=== PATIENT | female | born 1945 | race Hispanic/Latino ===

== ENCOUNTER 2017-03-09 12:43 | Emergency (ER) | payer MEDICARE, BC ==
[2017-03-09 12:43] VITALS: BMI 20.1
[2017-03-09 13:04] VITALS: TEMP 98.5
--- NOTE | 2017-03-09 13:23 | ED PDOC ---
Arrival/HPI - General Chief Complaint: Psychiatric Evaluation Time Seen by Provider: 03/09/17 12:50 Historian: Patient - History of Present Illness Narrative History of Present Illness (Text): 03/09/17 13:20 A 71 year old female, whose past medical history includes bipolar disorder, presents to the emergency department complaining of increased anxiety. Patient reports she has been on and off her medication over the past 40 years. Patient states her symptoms worsen when her medication is not well managed. Patient denies any somatic complaints at this time. Patient denies any fever, chills, nausea, vomiting, abdominal pain, chest pain, shortness of breath, headache, dizziness, suicidal ideation, homicidal ideation or any other complaint. Past Medical History - Provider Review Nursing Documentation Reviewed: Yes - Infectious Disease Hx of Infectious Diseases: None - Tetanus Immunization Tetanus Immunization: Unknown - Cardiac Hx Hypertension: Yes - Musculoskeletal/Rheumatological Hx Arthritis: Yes (osteoporosis) - Psychiatric Hx Depression: No Hx Emotional Abuse: No Hx Physical Abuse: No Hx Substance Use: No - Surgical History Hx Orthopedic Surgery: Yes (left hip and right hip) - Suicidal Assessment Feels Threatened In Home Enviroment: No Family/Social History - Physician Review Nursing Documentation Reviewed: Yes Family/Social History: No Known Family HX Smoking Status: Never Smoked Hx Alcohol Use: No Hx Substance Use: No Hx Substance Use Treatment: No Allergies/Home Meds Allergies/Adverse Reactions: Allergies No Known Allergies Allergy (Verified 03/09/17 13:04) Home Medications: Home Meds Medication Instructions Recorded Confirmed Atorvastatin Calcium [Lipitor] 40 mg PO DAILY 12/31/13 03/09/17 Clonazepam 1 mg PO TID 12/31/13 03/09/17 Lamotrigine [Lamictal] 300 mg PO DAILY 12/31/13 03/09/17 Venlafaxine Hydrochloride [Effexor] 75 mg PO DAILY 12/31/13 03/09/17 Brexpiprazole [Rexulti] 1 mg PO DAILY 03/09/17 03/09/17 Chlorthalidone [Hygroton] 25 mg PO DAILY 03/09/17 03/09/17 Lamotrigine [Lamictal] 100 mg PO DAILY 03/09/17 03/09/17 Venlafaxine [Effexor XR] 150 mg PO DAILY 09/18/17 09/18/17 amLODIPine [Norvasc] 10 mg PO DAILY 03/09/17 03/09/17 Review of Systems - Physician Review All systems were reviewed & negative as marked: Yes - Review of Systems Constitutional: absent: Fevers, Night Sweats Respiratory: absent: SOB Cardiovascular: absent: Chest Pain Gastrointestinal: absent: Abdominal Pain, Nausea, Vomiting Neurological: absent: Headache, Dizziness Psychiatric: Anxiety. absent: Suicidal Ideation (/Homicidal ideation) Physical Exam Vital Signs Reviewed: Yes Vital Signs Temp Pulse Resp BP Pulse Ox 03/09/17 15:00 90 20 166/70 H 98 03/09/17 13:20 95 H 18 147/72 100 03/09/17 12:58 98.5 F 90 16 167/86 H 96 Temperature: Afebrile Blood Pressure: Hypertensive Pulse: Regular Respiratory Rate: Normal Appearance: Positive for: Non-Toxic, Comfortable, Other (Anxious appearing) Pain Distress: None Mental Status: Positive for: Alert and Oriented X 3 - Systems Exam Head: Present: Atraumatic, Normocephalic Pupils: Present: PERRL Extroacular Muscles: Present: EOMI Conjunctiva: Present: Normal Mouth: Present: Moist Mucous Membranes Pharnyx: No: ERYTHEMA, EXUDATE, TONSILS ENLARGED Neck: Present: Normal Range of Motion Respiratory/Chest: Present: Clear to Auscultation, Good Air Exchange. No: Respiratory Distress, Accessory Muscle Use Cardiovascular: Present: Regular Rate and Rhythm, Normal S1, S2. No: Murmurs Abdomen: Present: Normal Bowel Sounds. No: Tenderness, Distention, Peritoneal Signs Back: Present: Normal Inspection Upper Extremity: Present: Normal Inspection. No: Cyanosis, Edema Lower Extremity: Present: Normal Inspection. No: Edema Neurological: Present: GCS=15, CN II-XII Intact, Speech Normal Skin: Present: Warm, Dry, Normal Color. No: Rashes Psychiatric: Present: Alert, Oriented x 3, Normal Insight, Normal Concentration , Anxious Medical Decision Making ED Course and Treatment: 03/09/17 13:19 Impression: A 71 year old female with increased anxiety. Patient is not complaint with her medication. Plan: -- Chest xray -- EKG -- Labs -- Urinalysis -- Reassess and disposition Progress Notes: EKG shows NSR at [address] changes, no changes from prior on . Interpreted by me. Report Date : 03/09/2017 14:17:24 Procedure: Chest xray Dictator : Maria M Haddad MD IMPRESSION: No active pulmonary disease. 03/09/17 14:39 Labs reviewed, results grossly normal. Pending urinalysis. 03/09/17 16:07 Patient medically cleared. 03/09/17 16:08 Patient evaluated by crisis, who state patient does not meet criteria for admission. I have discussed the plan with the patient, who expresses understanding. Patient in agreement with plan to be discharged home. Patient is stable for discharge. Patient was instructed to follow up with physician or return if symptoms worsen or new concerning symptoms arise. - Lab Interpretations Lab Results: 03/09/17 13:40 03/09/17 13:40 Lab Results 03/09/17 14:45: Urine Opiates Screen Negative, Urine Methadone Screen Negative, Ur Barbiturates Screen Negative, Ur Phencyclidine Scrn Negative, Ur Amphetamines Screen Negative, U Benzodiazepines Scrn Negative, U Oth Cocaine Metabols Negative, U Cannabinoids Screen Negative 03/09/17 14:45: Urine Color Yellow, Urine Appearance Clear, Urine pH 6.5, Ur Specific Moran <= 1.005, Urine Protein Trace H, Urine Glucose (UA) Negative, Urine Ketones Negative, Urine Blood Negative, Urine Nitrate Negative, Urine Bilirubin Negative, Urine Urobilinogen 0.2, Ur Leukocyte Esterase Small H, Urine RBC 0 - 2, Urine WBC 0 - 2 03/09/17 13:40: Alcohol, Quantitative < 10 03/09/17 13:40: Sodium 139, Potassium 3.0 L, Chloride 96 L, Carbon Dioxide 29, Anion Gap 17, BUN 26 H, Creatinine 1.4, Est GFR ( Amer) 45, Est GFR (Non- Af Amer) 37, Random Glucose 138 H, Calcium 9.7, Total Bilirubin 0.6, AST 23, ALT 26, Alkaline Phosphatase 134 H, Total Protein 7.8, Albumin 4.6, Globulin 3.2 , Albumin/Globulin Ratio 1.4 03/09/17 13:40: WBC 8.8 D, RBC 4.36, Hgb 12.3, Hct 37.1, MCV 85.1, MCH 28.2, MCHC 33.2, RDW 14.6 H, Plt Count 346, MPV 9.4, Gran % 75.6 H, Lymph % (Auto) 19.5 L, [place] % (Auto) 4.8, Eos % (Auto) 0.1 L, Baso % (Auto) 0.0, Gran # 6.64 H , Lymph # 1.7, [place] # 0.4, Eos # 0.0, Baso # 0.00 I have reviewed the lab results: Yes - RAD Interpretation Radiology Orders: 03/09/17 13:19 CHEST PORTABLE [RAD] Stat - Medication Orders Current Medication Orders: Discontinued Medications Potassium Chloride (K-Dur 20 Meq Er Tab) 40 meq PO STAT STA Stop: 03/09/17 14:40 Last Admin: 03/09/17 14:44 Dose: 40 meq - Scribe Statement The provider has reviewed the documentation as recorded by the Chavaibnery Christopher Provider Scribe Attestation: All medical record entries made by the Scribe were at my direction and personally dictated by me. I have reviewed the chart and agree that the record accurately reflects my personal performance of the history, physical exam, medical decision making, and the department course for this patient. I have also personally directed, reviewed, and agree with the discharge instructions and disposition. Disposition/Present on Arrival - Present on Arrival Any Indicators Present on Arrival: No History of DVT/PE: No History of Uncontrolled Diabetes: No Urinary Catheter: No History of Decub. Ulcer: No History Surgical Site Infection Following: None - Disposition Have Diagnosis and Disposition been Completed?: Yes Diagnosis: Anxiety Disposition: HOME/ ROUTINE Disposition Time: 16:07 Patient Plan: Discharge Patient Problems: Current Active Problems Problem Status Onset Anxiety Acute Condition: GOOD Discharge Instructions (ExitCare): Anxiety (ED) Additional Instructions: Follow up as arranged by crisis. Return to ED if condition worsens. Referrals: Silas Coleman MD [Primary Care Provider] - Follow up with primary Forms: [employer] ([place])
[2017-03-09 13:53] LABS: EOS % 0.1 % (1.5-5.0); GRAN # 6.64 (1.4-6.5); GRAN % 75.6 % (50.0-68.0); HEMATOCRIT 37.1 % (36.0-48.0); LYMPH # 1.7 (1.2-3.4); LYMPH % 19.5 % (22.0-35.0); MEAN CELL VOLUME 85.1 fl (80.0-105.0); MEAN CORPUSCULAR HEMOGLOBIN 28.2 pg (25.0-35.0); MEAN CORPUSCULAR HGB CONC 33.2 g/dl (31.0-37.0); MEAN PLATELET VOLUME 9.4 fl (7.0-11.0); MONO # 0.4 (0.1-0.6); MONO % 4.8 % (1.0-6.0); RED CELL DISTRIBUTION WIDTH 14.6 % (11.5-14.5); WHITE BLOOD COUNT 8.8 10^3/ul (4.5-11.0)
[2017-03-09 13:58] LABS: ALB/GLOB RATIO 1.4 (1.1-1.8); BILIRUBIN,TOTAL 0.6 mg/dL (0.2-1.3); CALCIUM 9.7 mg/dL (8.4-10.5); TOTAL PROTEIN 7.8 g/dL (5.8-8.3)
--- NOTE | 2017-03-09 14:19 | RAD ---
HISTORY: psych COMPARISON: 12/09/2013 FINDINGS: LUNGS: The lungs are well inflated and clear. There are tiny calcified granulomas in the left upper lobe. PLEURA: No significant pleural effusion identified, no pneumothorax apparent. CARDIOVASCULAR: Normal. OSSEOUS STRUCTURES: No significant abnormalities. VISUALIZED UPPER ABDOMEN: Normal. OTHER FINDINGS: There is chronic elevation of the right hemidiaphragm. IMPRESSION: No active pulmonary disease.
[2017-03-09] MEDS ORDERED: Potassium Chloride 20 mEq ER Tab PO STA (14:39)
[2017-03-09 14:58] LABS: PH,URINE 6.5 (4.7-8.0); URINE BILIRUBIN NEGATIVE (NEGATIVE); URINE BLOOD NEGATIVE (NEGATIVE); URINE GLUCOSE (UA) NEGATIVE (NEGATIVE); URINE KETONE NEGATIVE (NEGATIVE); URINE LEUKOCYTE ESTERASE SMALL Leu/uL (NEGATIVE); URINE PROTEIN TRACE mg/dL (<30 mg/dL); URINE UROBILINOGEN 0.2 E.U./dL (<1 E.U./dL)
[2017-03-09 15:00] LABS: URINE APPEARANCE CLEAR (CLEAR); URINE COLOR YELLOW (YELLOW)
[2017-03-09 15:04] LABS: URINE RBC 0 - 2 /hpf (0-2); URINE WBC 0 - 2 /hpf (0-6)
[2017-03-09 15:34] VITALS: BP 166/70; PULSE 90; RESP 20; O2SAT 98
--- NOTE | 2017-03-09 20:49 | CARD ---
APPROVED REPORT EKG Measurement Heart [id number] <Conclusion> Normal sinus rhythm Possible Left atrial enlargement T wave abnormality, nonspecific Abnormal ECG
== END 2017-03-09 16:30 | disposition home or self-care (01) ==
LOC: ED 12:43
DX: F41.9 Anxiety disorder, unspecified (principal)
CPT/HCPCS: 71010; 80053; 81001; 85025; 90791; 93005; 99283; G0480

== ENCOUNTER 2017-04-17 08:07 | Inpatient (IN) | payer MEDICARE, BC ==
[2017-04-17 08:22] VITALS: BMI 30.1
--- NOTE | 2017-04-17 08:46 | ED PDOC ---
Arrival/HPI - General Chief Complaint: Trauma Time Seen by Provider: 04/17/17 08:13 Historian: Patient - History of Present Illness Narrative History of Present Illness (Text): 04/17/17 08:41 A 72 year old female whose past medical history includes bipolar disorder, presents to the emergency department for multiple falls. The patient states that she fell several times this week. She states that she slipped off of the bed because she sheets were to slippery and that she fell today because her walker got stuck. pt also reports she "doesn't feel herself" and "feels lightheadeed"The patient denies fevers, chills, headache, dizziness, chest pain , shortness of breath, dyspnea on exertion, cough, abdominal pain, nausea, vomiting, diarrhea, back pain, neck pain, urinary/bowel changes, trauma or injury to her head, complaint of pain, or any other complaint. Time/Duration: Other (This Morning) Symptom Onset: Sudden Symptom Course: Unchanged Activities at Onset: Rest, Light Context: Home Past Medical History - Provider Review Nursing Documentation Reviewed: Yes - Infectious Disease Hx of Infectious Diseases: None - Tetanus Immunization Tetanus Immunization: Unknown - Cardiac Hx Hypertension: Yes - Pulmonary Hx Respiratory Disorders: No - Neurological Hx Neurological Disorder: No HX Cerebrovascular Accident: No Hx Seizures: No - HEENT Hx HEENT Disorder: No - Renal Hx Renal Disorder: No - Endocrine/Metabolic Hx Endocrine Disorders: No - Hematological/Oncological Hx Blood Disorders: No Hx Cancer: No - Integumentary Hx Dermatological Disorder: No - Musculoskeletal/Rheumatological Hx Musculoskeletal Disorders: Yes Hx Arthritis: Yes (osteoporosis) Hx Osteoarthritis: Yes - Gastrointestinal Hx Gastrointestinal Disorders: No - Genitourinary/Gynecological Hx Genitourinary Disorders: No Hx Sexually Transmitted Diseases: No - Psychiatric Hx Psychophysiologic Disorder: No Hx Depression: No Hx Emotional Abuse: No Hx Physical Abuse: No Hx Substance Use: No - Surgical History Hx Orthopedic Surgery: Yes (left hip and right hip) - Anesthesia Hx Anesthesia: No - Suicidal Assessment Feels Threatened In Home Enviroment: No Family/Social History - Physician Review Nursing Documentation Reviewed: Yes Family/Social History: No Known Family HX Smoking Status: Former Smoker Hx Alcohol Use: No Hx Substance Use: No Hx Substance Use Treatment: No Allergies/Home Meds Allergies/Adverse Reactions: Allergies No Known Allergies Allergy (Verified 04/17/17 08:23) Home Medications: Home Meds Medication Instructions Recorded Confirmed Atorvastatin Calcium [Lipitor] 40 mg PO DAILY 12/31/13 04/17/17 Chlorthalidone [Hygroton] 25 mg PO DAILY 03/09/17 04/17/17 Lamotrigine [Lamictal] 150 mg PO BID 03/09/17 04/17/17 Venlafaxine [Effexor XR] 75 mg PO DAILY 03/09/17 04/17/17 amLODIPine [Norvasc] 10 mg PO DAILY 03/09/17 04/17/17 Clonazepam [Klonopin] 1.5 mg PO DAILY 04/17/17 04/17/17 Methylphenidate [Ritalin] 10 mg PO BID 04/17/17 04/17/17 buPROPion [Bupropion HCl] 300 mg PO DAILY 04/17/17 04/17/17 Review of Systems - Physician Review All systems were reviewed & negative as marked: Yes - Review of Systems Constitutional: absent: Fevers, Night Sweats ENT: absent: Sore Throat Respiratory: absent: SOB, Cough Cardiovascular: absent: Chest Pain, [place] Gastrointestinal: absent: Stool Changes, Diarrhea, Nausea, Vomiting Musculoskeletal: absent: Back Pain, Neck Pain Neurological: absent: Headache, Dizziness Physical Exam Vital Signs Reviewed: Yes Vital Signs Temp Pulse Resp BP Pulse Ox 04/17/17 13:03 84 19 129/62 97 04/17/17 11:20 84 18 133/65 95 04/17/17 08:21 98.8 F 88 18 141/85 98 Temperature: Afebrile Blood Pressure: Normal Pulse: Regular Respiratory Rate: Normal Appearance: Positive for: Well-Appearing, Non-Toxic, Comfortable Pain Distress: None Mental Status: Positive for: Alert and Oriented X 3 - Systems Exam Head: Present: Atraumatic, Normocephalic Pupils: Present: PERRL Extroacular Muscles: Present: EOMI Conjunctiva: Present: Normal Mouth: Present: Moist Mucous Membranes Neck: Present: Normal Range of Motion Respiratory/Chest: Present: Clear to Auscultation, Good Air Exchange. No: Respiratory Distress, Accessory Muscle Use Cardiovascular: Present: Regular Rate and Rhythm, Normal S1, S2. No: Murmurs Abdomen: Present: Normal Bowel Sounds. No: Tenderness, Distention, Peritoneal Signs Back: Present: Normal Inspection Upper Extremity: Present: Normal Inspection. No: Cyanosis, Edema Lower Extremity: Present: Normal Inspection. No: Edema Neurological: Present: GCS=15, CN II-XII Intact, Speech Normal Skin: Present: Warm, Dry, Normal Color. No: Rashes Psychiatric: Present: Alert, Oriented x 3, Normal Insight, Normal Concentration Medical Decision Making ED Course and Treatment: 04/17/17 08:47 Impression: A 72 year old female presents after multiple falls this week. The patient is not complaining of any pain, LOC, or head injury. also reports lightheadness- r/ o cardiac, infectious, metabolic abnormality. Plan: -- EKG -- Chest X-ray -- Pelvic X- Ray -- Urinalysis -- Labs -- Reassess and disposition Prior Visits: Notes and results from previous visits were reviewed. Patient was last seen in the emergency department on 12/31/13, the patient was seen in the emergency department for right eye discomfort. The patien was discharged home and advised to follow up with PMD. Progress Notes: EKG: Ordered, reviewed, and independently interpreted the EKG. Rate : 81 BPM Rhythm : NSR Interpretation : Non- Specific ST-T-wave changes. Comparison : No interval changes from previous. 04/17/17 11:04: Case discussed with Dr. Bah in detail. Accepts patient to her service. requests Head CT. Radiographs of the pelvis Dictator : Trevon Schwartz MD Report Date : 04/17/2017 10:50:23 IMPRESSION: No acute findings CHEST X-RAY Dictator : Maria M Gastelum MD Report Date : 04/17/2017 10:26:07 IMPRESSION: No acute findings. CT HEAD WITHOUT CONTRAST Dictator : Maria M Gastelum MD Report Date : 04/17/2017 12:41:47 IMPRESSION: No acute intracranial abnormality. Mild chronic microangiopathic changes and mild age-related global parenchymal volume loss. - Lab Interpretations Lab Results: 04/17/17 09:10 04/17/17 10:00 Lab Results 04/17/17 10:00: Sodium 139, Potassium 2.4 L*, Chloride 93 L, Carbon Dioxide 36 H , Anion Gap 12, BUN 20, Creatinine 1.7 H, Est GFR ( Amer) 36, Est GFR ( Non-Af Amer) 29, Random Glucose 137 H, Calcium 9.8, Magnesium 1.7, Total Bilirubin 0.9, AST 20, ALT 29, Alkaline Phosphatase 124, Lactate Dehydrogenase 413, Total Creatine Kinase 41, Troponin I 0.03, Total Protein 7.4, Albumin 4.4, Globulin 3.0, Albumin/Globulin Ratio 1.5 04/17/17 09:10: PT 11.6, INR 1.05, APTT 27.7 04/17/17 09:10: WBC 8.4, RBC 4.45, Hgb 12.4, Hct 37.7, MCV 84.7, MCH 27.9, MCHC 32.9, RDW 15.3 H, Plt Count 364, MPV 9.5, Gran % 78.5 H, Lymph % (Auto) 15.5 L, [place] % (Auto) 4.9, Eos % (Auto) 1.0 L, Baso % (Auto) 0.1, Gran # 6.59 H, Lymph # 1.3, [place] # 0.4, Eos # 0.1, Baso # 0.01 I have reviewed the lab results: Yes - RAD Interpretation Radiology Orders: 04/17/17 08:40 CHEST PORTABLE [RAD] Stat PELVIS ONE VIEW [RAD] Stat 04/17/17 10:56 HEAD W/O CONTRAST [CT] Stat - EKG Interpretation Interpreted by ED Physician: Yes Type: 12 lead EKG - Medication Orders Current Medication Orders: Potassium Chloride (Potassium Chloride 10 Meq/100 Ml) 10 meq in 100 mls @ 100 mls/hr IVPB Q2H NIKI Stop: 04/17/17 13:44 Last Admin: 04/17/17 11:26 Dose: 100 mls/hr eMAR Start Stop Document 04/17/17 11:26 MR (Rec: 04/17/17 11:43 MR [id number]) Intravenous Solution Start Date 04/17/17 Start Time 11:26 End Date 04/17/17 End time 12:30 Total Infusion Time 64 Discontinued Medications Potassium Chloride (K-Dur 20 Meq Er Tab) 40 meq PO STAT STA Stop: 04/17/17 10:39 Last Admin: 04/17/17 11:26 Dose: 40 meq - Scribe Statement The provider has reviewed the documentation as recorded by the Rebecca Alva Provider Scribe Attestation: All medical record entries made by the Chavaibe were at my direction and personally dictated by me. I have reviewed the chart and agree that the record accurately reflects my personal performance of the history, physical exam, medical decision making, and the department course for this patient. I have also personally directed, reviewed, and agree with the discharge instructions and disposition. Disposition/Present on Arrival - Present on Arrival Any Indicators Present on Arrival: No History of DVT/PE: No History of Uncontrolled Diabetes: No Urinary Catheter: No History of Decub. Ulcer: No History Surgical Site Infection Following: None - Disposition Have Diagnosis and Disposition been Completed?: Yes Diagnosis: Multiple falls, Hypokalemia Disposition: HOSPITALIZED Disposition Time: 01:00 Condition: STABLE
[2017-04-17 09:39] LABS: BASO # 0.01 K/mm3 (0.0-2.0); BASO % 0.1 % (0.0-3.0); EOS # 0.1 (0.0-0.7); GRAN # 6.59 (1.4-6.5); GRAN % 78.5 % (50.0-68.0); HEMATOCRIT 37.7 % (36.0-48.0); LYMPH # 1.3 (1.2-3.4); LYMPH % 15.5 % (22.0-35.0); MEAN CELL VOLUME 84.7 fl (80.0-105.0); MEAN CORPUSCULAR HEMOGLOBIN 27.9 pg (25.0-35.0); MEAN CORPUSCULAR HGB CONC 32.9 g/dl (31.0-37.0); MEAN PLATELET VOLUME 9.5 fl (7.0-11.0); MONO # 0.4 (0.1-0.6); MONO % 4.9 % (1.0-6.0); RED CELL DISTRIBUTION WIDTH 15.3 % (11.5-14.5); WHITE BLOOD COUNT 8.4 10^3/ul (4.5-11.0)
[2017-04-17 09:44] LABS: INR 1.05 (0.93-1.08); PARTIAL THROMBOPLASTIN TIME 27.7 Seconds (25.1-36.5)
--- NOTE | 2017-04-17 10:27 | RAD ---
HISTORY: Fall COMPARISON: 03/09/2017. FINDINGS: LUNGS: The lungs are well inflated and clear. PLEURA: No significant pleural effusion identified, no pneumothorax apparent. CARDIOVASCULAR: Normal. OSSEOUS STRUCTURES: No significant abnormalities. VISUALIZED UPPER ABDOMEN: Normal. OTHER FINDINGS: There is chronic elevation of the right hemidiaphragm. IMPRESSION: No acute findings.
[2017-04-17 10:35] LABS: ALB/GLOB RATIO 1.5 (1.1-1.8); BILIRUBIN,TOTAL 0.9 mg/dL (0.2-1.3); CALCIUM 9.8 mg/dL (8.4-10.5); MAGNESIUM 1.7 mg/dL (1.7-2.2); TOTAL PROTEIN 7.4 g/dL (5.8-8.3)
[2017-04-17 10:38] LABS: POTASSIUM 2.4 mmol/L (3.6-5.0)
[2017-04-17] MEDS ORDERED: Potassium Chloride 20 mEq ER Tab PO STA (10:38)
[2017-04-17 10:45] LABS: TROPONIN I 0.03 ng/mL
--- NOTE | 2017-04-17 10:51 | RAD ---
PROCEDURE: Radiographs of the pelvis. HISTORY: fall COMPARISON: None. FINDINGS: BONES: Pelvic Bones: Unremarkable. Hips: Bilateral hip prosthesis. No dislocation or loosening. JOINTS: Sacroiliac Joints: Unremarkable. Pubic Symphysis: Unremarkable. OTHER FINDINGS: Disc degeneration lower lumbar spine IMPRESSION: No acute findings
--- NOTE | 2017-04-17 12:43 | CT ---
PROCEDURE: CT HEAD WITHOUT CONTRAST. HISTORY: Fall COMPARISON: None available. TECHNIQUE: Axial computed tomography images were obtained through the head/brain without intravenous contrast. Radiation dose: Total exam DLP = 726.57 mGy-cm. This CT exam was performed using one or more of the following dose reduction techniques: Automated exposure control, adjustment of the mA and/or kV according to patient size, and/or use of iterative reconstruction technique. FINDINGS: HEMORRHAGE: No intracranial hemorrhage. BRAIN: There are mild chronic microangiopathic changes. There is no mass, mass effect or abnormal extra-axial fluid collection. VENTRICLES: There is mild age-related global parenchymal volume loss and proportionate enlargement of the ventricles and cortical sulci. CALVARIUM: There is no calvarial fracture or extracranial soft tissue swelling. PARANASAL SINUSES: Predominantly clear. MASTOID AIR CELLS: Predominantly clear. OTHER FINDINGS: None. IMPRESSION: No acute intracranial abnormality. Mild chronic microangiopathic changes and mild age-related global parenchymal volume loss.
[2017-04-17 21:29] LABS: PH,URINE 6.5 (4.7-8.0); URINE BILIRUBIN NEGATIVE (NEGATIVE); URINE BLOOD NEGATIVE (NEGATIVE); URINE GLUCOSE (UA) NEGATIVE (NEGATIVE); URINE KETONE NEGATIVE (NEGATIVE); URINE LEUKOCYTE ESTERASE NEGATIVE Leu/uL (NEGATIVE); URINE PROTEIN NEGATIVE mg/dL (<30 mg/dL); URINE UROBILINOGEN 0.2 E.U./dL (<1 E.U./dL)
[2017-04-17 21:34] LABS: URINE APPEARANCE CLEAR (CLEAR); URINE COLOR YELLOW (YELLOW)
[2017-04-17] MEDS ORDERED: Pneumococcal 23-Valent Vaccine IM ONE (22:44)
[2017-04-17] MEDS ORDERED: Influenza Vaccine 60 mcg/0.5 mL SYR (4YR UP) IM ONE (22:44)
--- NOTE | 2017-04-18 01:32 | HP ---
CHIEF COMPLAINT: Trauma, multiple falls. HISTORY OF PRESENT ILLNESS: The patient is a 72-year-old female with past medical history of bipolar disorder, came to the emergency department for multiple falls. The patient states that she fell several times this week. She states that she slipped off the bed because the sheets were slippery and then she fell today because her walker got stuck. The patient also reports she does not feel how she was and feels lightheadedness. The patient denies fever, chills, headache, dizziness, chest pain, dyspnea on exertion, cough, abdominal pain. No nausea, vomiting or diarrhea. No urinary problems. PAST MEDICAL HISTORY: Bipolar, hypertension, osteoporosis, osteoarthritis, left hip and right hip surgery. FAMILY HISTORY: Father and mother noncontributory. HABITS: Former smoker. No drugs. No ethanol. ALLERGIES: THE PATIENT IS NOT ALLERGIC WITH ANY MEDICATION. HOME MEDICATIONS: Lipitor, chlorthalidone, Lamictal, Effexor, Norvasc, Klonopin, Ritalin and bupropion. REVIEW OF SYSTEMS: The patient was seen and examined on the bedside in telemetry, looking comfortable. No shortness of breath. No coughing. No chest pain. No diarrhea. No nausea or vomiting. No back pain. No neck pain. No headache. No dizziness. Feeling fatigue and tired. PHYSICAL EXAMINATION VITAL SIGNS: Temperature 98.8, pulse 88, respiratory rate 18, blood pressure 140/85 and pulse oximetry 98. HEENT: Head; normocephalic and atraumatic. Eyes; PERRLA. Extraocular muscles intact. Conjunctivae clear. Nose patent. Mucous membrane moist. NECK: Supple. No carotid bruits, JVD or thyromegaly. CHEST: Bilaterally symmetrical. HEART: S1 and S2 positive. LUNGS: Clear to auscultation. ABDOMEN: Soft. Bowel sounds positive. No organomegaly. EXTREMITIES: No edema. No cyanosis. NEUROLOGIC: The patient is awake and alert. Moving all 4 extremities. No focal deficits. LABORATORY DATA: White blood cell 8.4, hemoglobin 12.4, hematocrit 37.7 and platelets 364. Sodium 134, potassium 2.4, BUN 20, creatinine 1.7 and glucose 137. ASSESSMENT AND PLAN: The patient is a 72-year-old lady with hypokalemia, replaced; hypochloremia; renal insufficiency; uncontrolled diabetes mellitus; history of bipolar; feeling fatigue and tired; history of hypertension; history of osteoporosis; osteoarthritis. Did CAT scan of the head according to Dr. Catie Dong; no acute intracranial abnormality, mild chronic microangiopathic changes and mild age-related global parenchymal volume loss. X-ray of the pelvis done. According to Dr. Trevon Dia; no acute finding. Chest x-ray is also done; no acute finding. Readmitted the patient. The patient's psychiatrist is Dr. Jayden Noe. Dr. Noe consult call. Restarted home medications. Replaced potassium. We will repeat labs. We will call consult for the Neurology and Cardiology and physical therapy. We will follow up. Irma Castanon MD
--- NOTE | 2017-04-18 03:11 | CON ---
PSYCHIATRIC CONSULTATION DATE: HISTORY OF PRESENT ILLNESS: The patient is a 72-year-old female who was brought to the emergency room after having fallen multiple times at home. In the emergency room, she was found to be hypokalemic, azotemic, and was admitted to the medical surgical floor for evaluation, I had known this lady since mid 02/2017, when she came to my office for psychiatric evaluation and treatment. Currently, I last saw her on 04/02/2017, for trying multiple psychotropic medicine. The patient has a past history and current history of bipolar disorder and mild cognitive impairment. She had a psychiatric hospitalization in 2011, two weeks at [facility]. She has been under the care of various psychiatrists off and on over the years and this is on other communities. The patient also had a right hip replacement on 01/08/2017, at [facility]. The patient also had a left hip replacement in 2012, has a history of hyperlipidemia, hypertension, chronic kidney disease. CURRENT MEDICATIONS: Most recent medications at home include Effexor XR 75 mg q.a.m., Wellbutrin 300 mg q.a.m., Ritalin 10 mg in a.m. and afternoon, clonazepam 1.5 mg at h.s., Lamictal 150 mg in a.m. and h.s. She has also been treated at home with Norvasc, Lipitor, chlorthalidone, and potassium. She admits not taking potassium regularly. LABORATORY DATA: The patient's current laboratory data; her white count is 8400, hemoglobin 12.4, platelet count 364,000. Her metabolic profile; sodium 139, potassium 2.4, chloride 93, CO2 36, BUN 20, creatinine 1.7, an estimated GFR of 29, random glucose 137. Rest of profile are all within normal range. She had a CT scan of the head, which showed microvascular disease and generalized age-related cerebral volume loss with ventricular dilatation. PERSONAL HISTORY: The patient lives in a family home. She is a . She has a daughter and she has a grandson. The patient has no history of alcohol or substance abuse. REVIEW OF SYSTEMS: Claims that itchiness in her body and legs at approximately 9 p.m. every night, worried it is from medications. We assured her that no medicine causes exactly itchiness at 9 p.m. The patient has been somewhat short of breath. Balance has been off recently. Rest of the 12-point review of systems are noncontributory. PHYSICAL EXAMINATION VITAL SIGNS: Blood pressure 129/62, pulse 84, afebrile, respirations 19 per minute, and O2 saturation 97%. PSYCHIATRICALLY: Her mental status, she is awake, she is alert. Her affect is somewhat flat and constricted. She is extremely anxious. She is preoccupied by her health. Recent memory is moderately impaired at times. She had a Baudilio cognitive tests 2 weeks ago, score of 24 out of 30. She claims her memory has been bad on and off few years. The patient's mood is depressed. No suicidal intent. IMPRESSION: The patient has a history of bipolar disorder, mixed type. She has a history of nzps-br-wbiigqeg cognitive impairment. She has xribn-bi-qmmdckt kidney disease. She has hypokalemia. The patient also has a history of hypertension and hyperlipidemia. PLAN: I will order appropriate psychotropic medication and we will follow up as per your request. The patient could be discharged from my point of view once her medical situation stabilize. Jayden Noe MD
[2017-04-18 06:49] LABS: CALCIUM 9.7 mg/dL (8.4-10.5)
[2017-04-18 06:56] LABS: POTASSIUM 2.6 mmol/L (3.6-5.0)
[2017-04-18 07:07] LABS: HEMATOCRIT 37.9 % (36.0-48.0); MEAN CELL VOLUME 85.4 fl (80.0-105.0); MEAN CORPUSCULAR HGB CONC 31.7 g/dl (31.0-37.0); RED CELL DISTRIBUTION WIDTH 15.6 % (11.5-14.5); WHITE BLOOD COUNT 6.2 10^3/ul (4.5-11.0)
[2017-04-18 07:19] LABS: IRON 35 ug/dL (45-180)
[2017-04-18] MEDS ORDERED: Potassium Chloride 40 mEq/30 ml LIQ UD PO ONE (08:40)
[2017-04-18] MEDS ORDERED: Magnesium Citrate Oral SOL (300 ml) PO ONE (08:59)
--- NOTE | 2017-04-18 09:01 | CARD ---
APPROVED REPORT EKG Measurement Heart [id number] ID [id number] <Conclusion> Normal sinus rhythm ST & T wave abnormality, consider inferior ischemia Prolonged QT Wandering baseline
[2017-04-18] MEDS: Venlafaxine 75 mg ER Cap PO SCH (09:23)
[2017-04-19 06:30] LABS: HEMATOCRIT 35.4 % (36.0-48.0); MEAN CELL VOLUME 85.1 fl (80.0-105.0); MEAN CORPUSCULAR HEMOGLOBIN 27.2 pg (25.0-35.0); MEAN CORPUSCULAR HGB CONC 31.9 g/dl (31.0-37.0); RED CELL DISTRIBUTION WIDTH 15.6 % (11.5-14.5)
[2017-04-19 06:38] LABS: ALB/GLOB RATIO 1.3 (1.1-1.8); BILIRUBIN,TOTAL 0.6 mg/dL (0.2-1.3); CALCIUM 9.5 mg/dL (8.4-10.5); TOTAL PROTEIN 6.5 g/dL (5.8-8.3)
[2017-04-19 06:40] LABS: POTASSIUM 2.6 mmol/L (3.6-5.0)
[2017-04-19] MEDS: Iron Complex Polysacch 150mg Cap PO SCH (09:41)
[2017-04-19] MEDS: Venlafaxine 75 mg ER Cap PO SCH (09:41)
[2017-04-19 13:41] LABS: FOLATE 9.7 ng/mL
[2017-04-19] MEDS: Calamine-Zinc Oxide Lotion (120 ml) TOP PRN (22:50)
--- NOTE | 2017-04-20 09:27 | PN ---
DATE: 04/18/2017 SUBJECTIVE: The patient is a 72-year-old female. The patient was seen and examined at the bedside and looking comfortable. No nausea, vomiting, or diarrhea. No hematuria or hematochezia. No swelling of the legs. No chest pain or palpitations. No headache or dizziness. PHYSICAL EXAMINATION: VITAL SIGNS: Temperature 99.5, pulse 78, blood pressure 120/74, and respiratory rate 20. HEENT: Head is normocephalic and atraumatic. Eyes; PERRLA. Extraocular muscles are intact. Conjunctivae clear. Nose patent. Mucous membrane moist. NECK: Supple. No carotid bruit, JVD, or thyromegaly. CHEST: Bilaterally symmetrical. HEART: S1 and S2 positive. LUNGS: Clear to auscultation. ABDOMEN: Soft. Bowel sounds are present. No organomegaly. EXTREMITIES: No edema. No cyanosis. NEUROLOGIC: The patient is awake and alert. Moving all 4 extremities. No focal deficit.. MEDICATIONS: Effexor, chlorthalidone, Lamictal, Lipitor, Norvasc, and Wellbutrin. LABORATORY DATA: White blood cells 6.3, hemoglobin 12.0, hematocrit 37.9, and platelets 338. Sodium 139, potassium 2.6, BUN 19, creatinine 1.6, and glucose 112. Iron 35 ASSESSMENT AND PLAN: a 72-year-old female with hypokalemia replaced, hypochloremia, high creatinine improving, hyperglycemia, iron deficiency, hypercholesterolemia, seen by Dr. Noe, the patient's psychiatrist; history of multiple falls, history of bipolar, and mild cognitive impairment. She has psych hospitalization in 2011 at [facility], has right hip replacement, has left hip replacement also, history of hypertension, and chronic kidney disease. Dr. Noe ordered psychotropic medications, we gave potassium, but still it is not replaced yet. I put some consult with service superintendent and neurologist, waiting for the input, and fall precautions. The patient is deconditioned and need rehabilitation. Meanwhile, we continue present treatment. Gastrointestinal and deep venous thrombosis prophylaxis. We will followup. Irma Castanon MD [facility] # [id number] MTDDeangelo
--- NOTE | 2017-04-20 09:41 | CP.PCM.CON ---
History of Present Illness - History of Present Illness History of Present Illness: Neurology consult note for Dr. Baker's service - Maciel Virk PGY2 Reason for consult: frequent falls HPI: Patient is a 72yo female with past medical history of bipolar disorder, hyperlipidemia, hypertension, chronic kidney disease, prior psychiatric hospitalizations that presented [facility] with complaints of multiple falls. Patient reportedly fell off her bed as well as sustained multiple falls at home throughout the week. She reported feeling lightheaded and unwell. She denied chest pain, palpitations, SOB, abdominal pain, nausea, vomiting, fever, chills, cough. Neurology consulted for evaluation of frequent falls. 12point ROS as per HPI above otherwise negative PMH: as stated above PSH: left hip replacement (2013), right hip replacement (2017) Allergies: NKDA Social Hx: Denies alcohol and illicit drug use; Has a daughter and grandson Family Hx: non-contributory Past Patient History - Infectious Disease Hx of Infectious Diseases: None - Tetanus Immunizations Tetanus Immunization: Unknown - Past Social History Smoking Status: Former Smoker - CARDIAC Hx Cardiac Disorders: Yes Hx Hypercholesterolemia: Yes Hx Hypertension: Yes - PULMONARY Hx Respiratory Disorders: Yes (USED TO SMOKE CIGARETTES < PPD) - NEUROLOGICAL Hx Neurological Disorder: Yes HX Cerebrovascular Accident: No Hx Dizziness: Yes Hx Seizures: No - HEENT Hx HEENT Problems: No - RENAL Hx Chronic Kidney Disease: Yes (3) - ENDOCRINE/METABOLIC Hx Endocrine Disorders: No - HEMATOLOGICAL/ONCOLOGICAL Hx Blood Disorders: No Hx Cancer: No - INTEGUMENTARY Hx Dermatological Problems: No - MUSCULOSKELETAL/RHEUMATOLOGICAL Hx Musculoskeletal Disorders: Yes Hx Arthritis: Yes (osteoporosis) Hx Falls: Yes Hx Osteoarthritis: Yes - GASTROINTESTINAL Hx Gastrointestinal Disorders: No - GENITOURINARY/GYNECOLOGICAL Hx Genitourinary Disorders: No Hx Sexually Transmitted Disorders: No - PSYCHIATRIC Hx Psychophysiologic Disorder: Yes (SMOKED CIGARETTES) Hx Anxiety: Yes Hx Bipolar Disorder: Yes Hx Depression: Yes Hx Emotional Abuse: No Hx Physical Abuse: No Hx Substance Use: No - SURGICAL HISTORY Hx Surgeries: Yes Hx Orthopedic Surgery: Yes (left hip and right hip) - ANESTHESIA Hx Anesthesia: No Meds Allergies/Adverse Reactions: Allergies Allergy/AdvReac Type Severity Reaction Status Date / Time No Known Allergies Allergy Verified 04/17/17 21:25 - Medications Medications: Current Medications Amlodipine Besylate (Norvasc) 10 mg PO DAILY NIKI Last Admin: 04/19/17 09:40 Dose: 10 mg Atorvastatin Calcium (Lipitor) 40 mg PO DAILY [facility] Last Admin: 04/19/17 09:41 Dose: 40 mg Bupropion HCl (Wellbutrin) 300 mg PO DAILY [facility] Last Admin: 04/19/17 09:36 Dose: 300 mg Calamine (Calamine Lotion) 0 ml TOP Q6 PRN PRN Reason: Itching / Pruritus Last Admin: 04/19/17 22:50 Dose: 120 ml Chlorthalidone (Hygroton) 25 mg PO DAILY [facility] Last Admin: 04/19/17 09:42 Dose: 25 mg Clonazepam (Klonopin) 1.5 mg PO HS [facility] PRN Reason: Protocol Last Admin: 04/19/17 22:49 Dose: 1.5 mg Lamotrigine (Lamictal) 150 mg PO BID [facility] Last Admin: 04/19/17 19:18 Dose: 150 mg Polysaccharide Iron Complex (Ferrex-150) 150 mg PO DAILY [facility] Last Admin: 04/19/17 09:41 Dose: 150 mg Venlafaxine HCl (Effexor Xr) 75 mg PO DAILY [facility] Last Admin: 04/19/17 09:41 Dose: 75 mg Physical Exam - Constitutional Appears: No Acute Distress - Head Exam Head Exam: ATRAUMATIC, NORMAL INSPECTION, NORMOCEPHALIC - Eye Exam Eye Exam: EOMI Pupil Exam: PERRL - ENT Exam ENT Exam: Normal Exam - Neck Exam Neck exam: Positive for: Normal Inspection. Negative for: Lymphadenopathy, Tenderness, Thyromegaly - Respiratory Exam Respiratory Exam: Clear to Auscultation Bilateral. absent: Rales, Rhonchi, Wheezes - Cardiovascular Exam Cardiovascular Exam: RRR, +S1, +S2. absent: Gallop, Rubs - GI/Abdominal Exam GI & Abdominal Exam: Soft. absent: Distended, Firm, Guarding, Tenderness - Neurological Exam Neurological exam: Alert, CN II-XII Intact, Oriented x3 Additional comments: EOMI PERRL CN2-12 grossly intact motor function grossly intact sensory intact throughout - Psychiatric Exam Psychiatric exam: Normal Affect, Normal Mood - Skin Skin Exam: Dry, Intact, Normal Color, Warm Results - Vital Signs Recent Vital Signs: Last Vital Signs Temp 98.7 F 04/20/17 06:00 Pulse 63 04/20/17 06:00 Resp 18 04/20/17 06:00 BP 121/69 04/20/17 06:00 Pulse Ox 93 L 04/20/17 06:00 - Labs Result Diagrams: 04/20/17 10:30 04/20/17 10:30 Labs: Laboratory Results - last 24 hr 04/18/17 04/18/17 06:00 06:00 Hemoglobin A1c 6.3 Vitamin B12 427 Folate 9.7 Assessment & Plan - Assessment and Plan (Free Text) Plan: 72yo female with history of bipolar disorder, hyperlipidemia, hypertension, chronic kidney disease, prior psychiatric hospitalizations presented to the [facility] with complaints of multiple falls. Neurology consulted for evaluation of frequent falls. 1. Dizziness 2. Bipolar disorder 3. Hyperlipidemia 4. Hypertension 5. Chronic kidney disease -CT Head reviewed; revealed no acute intracranial abnormalities -CXR reviewed; no acute findings -EKG reviewed; normal sinus rhythm at 81bpm with prolonged QT, ST/T wave abnormality -Recommend obtaining orthostatic VS -Recommend f/u psychiatry recommendations regarding current psychiatric medications -Physical therapy evaluation/treatment -Patient would benefit from subacute rehabilitation for improvement of physical deconditioning -Monitor and correct electrolytes abnormalities as indicated -Further recommendations as per attending, Dr. Baker Patient seen and case discussed/reviewed with attending, Dr. Baker
--- NOTE | 2017-04-20 09:49 | PQF RENAL ---
This form is a permanent part of the medical record Dr. Castanon, Patient admitted with creatinine 1.7. Your documentation notes renal insufficiency with hx CKD. This diagnosis requires more specificity. Please document stage of CKD. Clarification of your documentation is requested to better reflect the severity of illness and intensity of treatment of your patient. Indicators present ASK DR JUNAID LION? [] Oliguria/anuria [] Edema/weight gain [] Hyponatremia [] Confusion/mental status changes [] Increased Blood Urea Nitrogen/Creatinine [] Increased Potassium/Decreased potassium [] Anemia (male <13.5, female <12.0) [] Proteinuria [] Metabolic Acidosis OR Alkalosis [] Hypotension/shock [] Decreased GFR [] Other: [] Location in the medical record that reflects the above clinical findings: PHYSICIAN'S RESPONSE Based on your medical judgment of the clinical indicators outlined above, are you treating this patient for a known or suspected: [] Acute Renal Failure [] Acute Kidney Injury [] Azotemia/prerenal azotemia [] Chronic kidney disease Stage I [] Stage II [] Stage III [] Stage IV [] [] Other condition/diagnosis:[] [] If Unable to Determine, please check the box, sign and date. Present On Admission (POA) Indicator: [] Present at the time of admission [] Not present at the time of admission [] Clinically Undetermined In responding to this query, please exercise your independent professional judgment. The fact that a question is asked does not imply that any particular answer is desired or expected. Thank you for your clarification on this documentation. If you have any questions please call:[ ] * Thank you, [ ]Scot Justin [facility] #[id number] respiratory therapist assistant Chronic Kidney Disease Stages *[employer]* Stage I GFR >90 Stage II GFR 60-89 Stage III GFR 30-59 Stage IV GFR 15-29 Stage V~~~~~~~~~~ GFR <15~~~~~~~~~~~~~ MTDD
[2017-04-20] MEDS: Calamine-Zinc Oxide Lotion (120 ml) TOP PRN (10:28)
[2017-04-20] MEDS: Iron Complex Polysacch 150mg Cap PO SCH (10:30)
[2017-04-20] MEDS: Venlafaxine 75 mg ER Cap PO SCH (10:44)
[2017-04-20 10:56] LABS: HEMATOCRIT 38.4 % (36.0-48.0); MEAN CELL VOLUME 85.3 fl (80.0-105.0); MEAN CORPUSCULAR HEMOGLOBIN 27.1 pg (25.0-35.0); MEAN CORPUSCULAR HGB CONC 31.8 g/dl (31.0-37.0); MEAN PLATELET VOLUME 8.9 fl (7.0-11.0); RED CELL DISTRIBUTION WIDTH 15.5 % (11.5-14.5); WHITE BLOOD COUNT 7.2 10^3/ul (4.5-11.0)
[2017-04-20 11:13] LABS: ALB/GLOB RATIO 1.5 (1.1-1.8); BILIRUBIN,TOTAL 0.6 mg/dL (0.2-1.3); CALCIUM 10.2 mg/dL (8.4-10.5); MAGNESIUM 1.9 mg/dL (1.7-2.2); PHOSPHOROUS 3.1 mg/dL (2.5-4.5); POTASSIUM 3.2 mmol/L (3.6-5.0); TOTAL PROTEIN 7.2 g/dL (5.8-8.3)
[2017-04-20] MEDS ORDERED: Potassium Chloride 20 mEq ER Tab PO ONE (11:58)
[2017-04-20 12:44] VITALS: BP 131/76; PULSE 97; RESP 20; TEMP 98.6
[2017-04-20 14:43] VITALS: O2SAT 96
--- NOTE | 2017-04-20 16:06 | CARD ---
APPROVED REPORT EXAM: Two-dimensional and M-mode echocardiogram with Doppler and color Doppler. INDICATION HTN/LVFX/SOB 2D DIMENSIONS IVSd0.8 (0.7-1.1cm)LVDd3.9 (3.9-5.9cm) PWd1.0 (0.7-1.1cm)LVDs2.5 (2.5-4.0cm) FS (%) 35.3 %LVEF (%)65.3 (>50%) M-Mode DIMENSIONS Aortic Root3.50 (2.2-3.7cm)Aortic Cusp Exc.1.40 (1.5-2.0cm) Aortic Valve AoV Peak Jzoaqujh828.0cm/sAoV VTI25.4cmAO Peak GR.9mmHg LVOT Peak Koluqohb094.0cm/sLVOT VTI20.20cmAO Mean GR.5mmHg Mitral Valve MV E Sxsdglhk33.9cm/sMV A Ifzbyodz990.0cm/sE/A ratio0.9 TDI Lateral E' Peak V12.10cm/sMedial E' Peak V6.53cm/sE/Lateral E'7.6 E/Medial E'14.1 Pulmonary Valve PV Peak Bmkvunls708.0cm/sPV Peak Grad.6mmHg Tricuspid Valve TR Peak Ppvespfz451tl/sRAP RUGMRYIX84pyXcFU Peak Gr.24mmHg AVCE75mgWr LEFT VENTRICLE The left ventricle is normal size. There is normal left ventricular wall thickness. The left ventricular function is normal.EF-65% There is normal LV segmental wall motion. Transmitral Doppler flow pattern is Grade III-reversible restrictive diastolic dysfunction. No left ventricle thrombus noted on this study. There is no ventricular septal defect visualized. There is no left ventricular aneurysm. There is no mass noted in the left ventricle. RIGHT VENTRICLE The right ventricle is normal size. There is normal right ventricular wall thickness. The right ventricular systolic function is normal. ATRIA The left atrium size is normal. The right atrium size is normal. The interatrial septum is intact with no evidence for an atrial septal defect. AORTIC VALVE The aortic valve is thickened but opens well. The aortic valve is mildly to moderately sclerotic. There is mild aortic regurgitation. There is no aortic valvular stenosis. There is no aortic valvular vegetation. MITRAL VALVE The mitral valve is thickened but opens well. Mitral regurgitation is trace. There is no mitral valve stenosis. There is no evidence of mitral valve prolapse. TRICUSPID VALVE The tricuspid valve leaflets are thickened , but open well. There is trace tricuspid regurgitation.RVSP-34 mmof hg. There is no tricuspid valve stenosis. There is no tricuspid valve prolapse or vegetation. PULMONIC VALVE The pulmonic valve is borderline thickened. There is trace pulmonic valvular regurgitation. There is no pulmonic valvular stenosis. GREAT VESSELS The aortic root is normal in size. The ascending aorta is normal in size. The pulmonary artery is normal. The IVC is normal in size and collapses >50% with inspiration. PERICARDIAL EFFUSION There is no pleural effusion. There is no pericardial effusion. <Conclusion> Normal chamber Size. EF-60-65%. Trace MR/TR RVSP-34 mmof hg. Mild AR.
--- NOTE | 2017-04-21 01:53 | CON ---
DATE: 04/20/2017 REASON FOR CONSULTATION: Followup uncontrolled hypertension and multiple falls. BRIEF CLINICAL HISTORY: A 72-year-old female with past medical history significant for bipolar disorder, who came to the emergency department with multiple falls, feeling very weak, and lethargic. Potassium was found to be very low, but most of the falls are mechanical. Admitting potassium was 2.4. The patient denies any chest pain, shortness of breath, or any palpitation. PAST MEDICAL HISTORY: Significant for bipolar disorder, hypertension, osteoporosis, osteoarthritis of left hip and right hip. PAST SURGICAL HISTORY: Significant for bilateral hip surgery. FAMILY HISTORY: Noncontributory. SOCIAL HISTORY: Denies any smoking and denies any history of alcohol abuse. CURRENT MEDICATIONS: The patient is on Lipitor, chlorthalidone, Lamictal, Effexor, Norvasc, Klonopin, Ritalin, and bupropion. ALLERGIES: NO KNOWN DRUG ALLERGIES. REVIEW OF SYSTEMS: As per HPI. PHYSICAL EXAMINATION: VITAL SIGNS: Temperature afebrile, heart rate 80, and blood pressure . HEENT: PERRLA. Extraocular muscles intact. NECK: Supple. No carotid bruits or thyromegaly. CHEST: Clear to auscultation. HEART: S1 and S2 regular. ABDOMEN: Soft. EXTREMITIES: Clubbing and cyanosis negative. LABORATORY DATA: Blood workup as follows: WBC 7.8, hemoglobin 12.2, hematocrit 38.4, and platelet count of 376. Chemistry show sodium 140, potassium 3.2, chloride , CO2 34, anion gap of 13, BUN 16, and creatinine 1.5. IMPRESSION: Feeling weak, lethargic, hypokalemia possibly secondary to diuretic induced hypokalemia, frequent fall, bipolar disorder, hypertension, osteoporosis, osteoarthritis, and status post hip surgery. RECOMMENDATIONS: We will get echo to assess to LV function, supplement potassium, discontinue telemetry. We will follow with you. Thank you Dr. Castanon for providing us the opportunity in taking care of Gabbi Trujillo. Joy Titus MD
--- NOTE | 2017-04-21 09:11 | PN ---
DATE: 04/20/2017 SUBJECTIVE: The patient is 72-year-old female admitted to the hospital after having multiple falls at home. She was found to have multiple medical problems. She has a long history of bipolar disorder and some moderate cognitive impairments. MENTAL STATUS: The patient's current mental status; she is awake, she is alert, she was walking in the [place] with a physical therapist and a walker. The patient is mostly oriented. She is oriented to months, year, day, and place. She recognizes me. She finds it being slightly anxious. She denies suicidal ideation. The patient is concerned about her medications in an appropriate manner. MEDICATIONS: The patient's current medications include Effexor XR 75 mg daily, , clonazepam 1.5 mg at bedtime, Lamictal 150 mg twice a day, Lipitor 40 mg daily, Norvasc 10 mg daily, and Wellbutrin 300 mg q. a.m. PHYSICAL EXAMINATION: VITAL SIGNS: Current blood pressure is 135/75, pulse is 64, afebrile, respirations 18 per minute, O2 saturation 93% on room air. LABORATORY DATA: Her CBC is all within normal range. Her metabolic profile: Sodium 140, potassium 3.2, chloride 96, CO2 34, and anion gap 13, BUN 19, creatinine 1.5, estimated GFR 34, random glucose 128. Rest of profile within normal range. IMPRESSION: 1. History of bipolar disorder. 2. History of mild cognitive impairment. 3. The patient has recent dizziness and falls at home, mechanical in nature. 4. She has hyperlipidemia. 5. She has chronic kidney disease. 6. She has history of hypertension. PLAN: We will add Ritalin 10 mg p.o. q. a.m. and in afternoon, which she will start it along at home. I will continue to monitor her mental status. Jayden Noe MD
--- NOTE | 2017-04-22 08:41 | DS ---
CHIEF COMPLAINT: Trauma, multiple falls, abnormal labs. HISTORY OF PRESENT ILLNESS: Ms. Gabbi Trujillo is a 72-year-old female with past medical history of bipolar disorder, who came to the emergency department for multiple falls. The patient states that she fell several times this week. The patient states that she slipped off the bed because the sheets were slippery and then she fell today, the day of admission because her walker got stuck, but she had different reasons to fall. Overall, she was feeling very fatigued and tired, we admitted the patient. Did CAT scan of the head, pelvic x-rays, chest x-rays. Her pressure was very low. We will give everyday K-rider of multiple runs and now potassium improved. Called Neurology consult. According to neurologist, the patient need subacute rehab. The patient was seen by Dr. Noe, her psychiatrist. Now we transfer the patient to TCU for physical therapy and continuity of care. PAST MEDICAL HISTORY: Bipolar, hypertension, osteoporosis, osteoarthritis, left hip and right hip surgery. FAMILY HISTORY: Father and mother noncontributory. HABITS: Former smoker. No drugs. No ethanol. ALLERGIES: THE PATIENT IS NOT ALLERGIC TO ANY MEDICATIONS. HOME MEDICATIONS: Reviewed by me. REVIEW OF SYSTEMS: The patient seen and examined on the bedside today in the unit, looking comfortable. No nausea. No vomiting. No diarrhea. No hematuria. No hematochezia. No swelling of the legs. No chest pain. No palpitation. No headache. No dizziness. No fever. No chills. No shortness of breath. Just complaining of fatigue and tired. PHYSICAL EXAMINATION: VITAL SIGNS: Temperature 98.6, pulse 97, blood pressure 130/76, respiratory rate 20. HEENT: Head; normocephalic and atraumatic. Eyes; PERRLA. Extraocular muscles intact. Conjunctivae clear. Nose patent. Mucous membrane moist. NECK: Supple. No carotid bruits. No JVD. No thyromegaly. CHEST: Bilateral symmetrical. HEART: S1 and S2 positive. LUNGS: Clear to auscultation. ABDOMEN: Soft. Bowel sounds present. No organomegaly. EXTREMITIES: No edema. No cyanosis. NEUROLOGIC: The patient is awake and alert. Moving all 4 extremities. No focal deficits. MEDICATIONS: Aldactone, Benadryl, Calamine, Effexor, chlorthalidone, potassium on multiple runs, Klonopin, Lamictal, Lipitor, Norvasc, Ritalin, and Wellbutrin. LABORATORY DATA: White blood cell 7.3, hemoglobin 12.2, hematocrit 38.4, platelets 376. Sodium 140, potassium 3.2, BUN 16, creatinine 1.5, glucose 128. ASSESSMENT AND PLAN: Ms. Gabbi Trujillo is a 72-year-old lady with hypokalemia, hypochloremia, renal insufficiency, iron deficiency, hypercholesteremia, history of severe hypokalemia and got multiple runs of potassium. Did CAT scan of the head, pelvic x-rays, chest x-rays. Has multiple falls, history of bipolar disorder, hypertension, chronic kidney disease, prior psychiatric hospitalization, dizziness. CT of head shows no acute intracranial abnormalities. Chest x-ray shows no acute findings. EKG normal sinus rhythm. Orthostatic was done. Psychiatrist is on the case. We called Neurology consult and Physical Therapy recommended subacute rehab. We will discharge the patient to subacute rehab for continuity of care and physical therapy. Irma Castanon MD MTDD
== END 2017-04-20 16:13 | DRG 641 ==
LOC: ED 08:07 → ERH 12:45 → 2RSO 13:50
PROVIDERS: ADMIT Internal Medicine; ATTEND Internal Medicine
DX: E87.6 Hypokalemia (principal); F31.60 Bipolar disorder, current episode mixed, unspecified; I12.9 Hypertensive chronic kidney disease with stage 1 through stage 4 chronic kidney disease, or unspecified chronic kidney disease; E11.22 Type 2 diabetes mellitus with diabetic chronic kidney disease; N18.9 Chronic kidney disease, unspecified; E11.65 Type 2 diabetes mellitus with hyperglycemia; E78.5 Hyperlipidemia, unspecified; G31.84 Mild cognitive impairment of uncertain or unknown etiology; M81.0 Age-related osteoporosis without current pathological fracture; M16.0 Bilateral primary osteoarthritis of hip; Z96.643 Presence of artificial hip joint, bilateral; E78.00 Pure hypercholesterolemia, unspecified; E61.1 Iron deficiency; R29.6 Repeated falls; Z87.891 Personal history of nicotine dependence

== ENCOUNTER 2017-05-03 14:25 | Inpatient (IN) | payer MEDICARE, BC ==
[2017-05-03 14:56] VITALS: BMI 31.6
[2017-05-03] MEDS: Sodium Chloride 0.9% 1,000 ML IV SCH (16:00)
[2017-05-03 16:34] LABS: BASO # 0.01 K/mm3 (0.0-2.0); BASO % 0.1 % (0.0-3.0); EOS # 0.1 (0.0-0.7); EOS % 0.8 % (1.5-5.0); GRAN # 6.06 (1.4-6.5); GRAN % 72.8 % (50.0-68.0); HEMATOCRIT 38.6 % (36.0-48.0); LYMPH # 1.7 (1.2-3.4); LYMPH % 20.4 % (22.0-35.0); MEAN CELL VOLUME 86.4 fl (80.0-105.0); MEAN CORPUSCULAR HEMOGLOBIN 28.2 pg (25.0-35.0); MEAN CORPUSCULAR HGB CONC 32.6 g/dl (31.0-37.0); MEAN PLATELET VOLUME 9.1 fl (7.0-11.0); MONO # 0.5 (0.1-0.6); MONO % 5.9 % (1.0-6.0); RED CELL DISTRIBUTION WIDTH 16.2 % (11.5-14.5); WHITE BLOOD COUNT 8.3 10^3/ul (4.5-11.0)
--- NOTE | 2017-05-03 16:55 | RAD ---
HISTORY: dizziness COMPARISON: Comparison is made to 04/17/2017 FINDINGS: LUNGS: No active pulmonary disease. PLEURA: No significant pleural effusion identified, no pneumothorax apparent. CARDIOVASCULAR: Normal. OSSEOUS STRUCTURES: No significant abnormalities. VISUALIZED UPPER ABDOMEN: Normal. OTHER FINDINGS: None. IMPRESSION: No active disease.
[2017-05-03 16:56] LABS: ALB/GLOB RATIO 1.7 (1.1-1.8); BILIRUBIN,TOTAL 0.7 mg/dL (0.2-1.3); CALCIUM 10.4 mg/dL (8.4-10.5); TOTAL PROTEIN 7.3 g/dL (5.8-8.3)
[2017-05-03 17:07] LABS: TROPONIN I 0.02 ng/mL
--- NOTE | 2017-05-03 17:12 | ED PDOC ---
Arrival/HPI - General Chief Complaint: Dizziness/Lightheaded Time Seen by Provider: 05/03/17 15:20 Historian: Patient - History of Present Illness Narrative History of Present Illness (Text): 05/03/17 17:07 A 72 year old female, whose past medical history includes hypertension, hyperlipidemia, depression, presents to the emergency department with a complaint of dizziness. The patient states that her symptoms began last night. She describes the dizziness as a lightheaded sensation that is worsened when laying o n her left side. She states that when she lays down she feels like her head is spinning. She notes that she was admitted 10 days ago and discharged 1 week ago for hypokalemia. The patient's daughter states that the patient has started 2 new psych medications Zyprexa and Aricept 3 days ago. The patient denies fevers, chills, headache, chest pain, palpitations, shortness of breath, dyspnea on exertion, cough, URI symptoms, abdominal pain, nausea, vomiting, diarrhea, back pain, neck pain, urinary/bowel changes, or any other complaint. PMD: Dr. Castanon Time/Duration: Other (Last Night) Symptom Onset: Sudden Symptom Course: Unchanged Activities at Onset: Rest, Light Context: Home Past Medical History - Provider Review Nursing Documentation Reviewed: Yes - Infectious Disease Hx of Infectious Diseases: None - Tetanus Immunization Tetanus Immunization: Unknown - Cardiac Hx Cardiac Disorders: Yes Hx Hypertension: Yes - Pulmonary Hx Respiratory Disorders: Yes (USED TO SMOKE CIGARETTES < PPD) - Neurological Hx Neurological Disorder: Yes HX Cerebrovascular Accident: No Hx Dizziness: Yes Hx Seizures: No - HEENT Hx HEENT Disorder: No - Renal Hx Renal Disorder: Yes (3) - Endocrine/Metabolic Hx Endocrine Disorders: No - Hematological/Oncological Hx Blood Disorders: No Hx Cancer: No - Integumentary Hx Dermatological Disorder: No - Musculoskeletal/Rheumatological Hx Arthritis: Yes (OA - knees) - Gastrointestinal Hx Gastrointestinal Disorders: No - Genitourinary/Gynecological Hx Genitourinary Disorders: No Hx Sexually Transmitted Diseases: No - Psychiatric Hx Psychophysiologic Disorder: Yes Hx Bipolar Disorder: Yes Hx Substance Use: No - Surgical History Hx Orthopedic Surgery: Yes (left hip and right hip) - Anesthesia Hx Anesthesia: Yes Hx Anesthesia Reactions: No - Suicidal Assessment Feels Threatened In Home Enviroment: No Family/Social History - Physician Review Nursing Documentation Reviewed: Yes Family/Social History: No Known Family HX Smoking Status: Former Smoker Hx Alcohol Use: No Hx Substance Use: No Hx Substance Use Treatment: No Allergies/Home Meds Allergies/Adverse Reactions: Allergies No Known Allergies Allergy (Verified 05/03/17 15:03) Home Medications: Home Meds Medication Instructions Recorded Confirmed Atorvastatin [Lipitor] 10 mg PO HS 05/03/17 05/03/17 Clonazepam [Klonopin] 1 tab PO 1400 05/03/17 05/03/17 Clonazepam [Klonopin] 1.5 mg PO HS 05/03/17 05/03/17 Donepezil [Aricept] 1 tab PO HS 05/03/17 05/03/17 Olanzapine [Zyprexa] 1 tab PO 1400 05/03/17 05/03/17 Review of Systems - Physician Review All systems were reviewed & negative as marked: Yes - Review of Systems Constitutional: absent: Fevers, Night Sweats Respiratory: absent: Cough Cardiovascular: absent: Chest Pain, [place] Gastrointestinal: absent: Abdominal Pain, Stool Changes, Diarrhea, Nausea, Vomiting Genitourinary Female: absent: Urine Output Changes Musculoskeletal: absent: Back Pain, Neck Pain Neurological: Dizziness. absent: Headache Physical Exam Vital Signs Reviewed: Yes Vital Signs Temp Pulse Resp BP Pulse Ox 05/03/17 20:00 73 17 127/80 98 05/03/17 18:00 71 17 129/73 100 05/03/17 17:10 69 18 128/69 98 05/03/17 15:32 74 18 132/71 98 05/03/17 14:55 98.3 F 79 18 136/75 98 Temperature: Afebrile Blood Pressure: Normal Pulse: Regular Respiratory Rate: Normal Appearance: Positive for: Well-Appearing, Non-Toxic, Comfortable Pain Distress: None Mental Status: Positive for: Alert and Oriented X 3 Finger Stick Blood Glucose: 81 - Systems Exam Head: Present: Atraumatic, Normocephalic Pupils: Present: PERRL Extroacular Muscles: Present: Other (No Nystagmus.) Conjunctiva: Present: Normal Mouth: Present: Moist Mucous Membranes Neck: Present: Normal Range of Motion Respiratory/Chest: Present: Clear to Auscultation, Good Air Exchange. No: Respiratory Distress, Accessory Muscle Use Cardiovascular: Present: Regular Rate and Rhythm, Normal S1, S2. No: Murmurs Abdomen: Present: Normal Bowel Sounds. No: Tenderness, Distention, Peritoneal Signs Back: Present: Normal Inspection Upper Extremity: Present: Normal Inspection. No: Cyanosis, Edema Lower Extremity: Present: Normal Inspection. No: Edema Neurological: Present: GCS=15, CN II-XII Intact, Speech Normal. No: Gait Normal (Unable to test gait due to patient's dizziness) Skin: Present: Warm, Dry, Normal Color. No: Rashes Psychiatric: Present: Alert, Oriented x 3, Normal Insight, Normal Concentration Medical Decision Making ED Course and Treatment: 05/03/17 17:14 Impression: A 72 year old female presents to the emergency department for dizziness. Previous medical records reviewed : patient was recently seen in this ED on . During that visit she had a CT head (-), CXR NAD, EKG NSR, K 2.4 and hence was admitted for hypokalemia. Plan: -- Head CT -- EKG -- Ativan and IV Fluids -- Urinalysis -- Urine Culture -- Labs -- Reassess and disposition Progress Notes: Orthostatic vital signs lying bp 128/69 p 69 sitting bp 130/71 p 70 standing 132/75 p 73 FS 81 EKG: NSR at 78 bpm, (-) acute ST changes, as read by MENDY. CXR : NAD, as read by PA Laboratory results reviewed : K 3.0 KCl 40 mEq PO ordered x2. CT head : no acute findings. On re-evaluation, patient is laying in bed in no acute distress, remains awake, alert and oriented x3, rreports improvement of her dizziness, denies any headache, nausea, CP, SOB or palpitations. Repeat neuro exam shows no focal findings. Based on history, exam and diagnostic results plan will be for inpatient observation. Patient states he/she fully agrees with and understands further plan of care. I have given the patient opportunity to ask any additional questions. Case d/w with Dr. Castanon, agrees with plan for inpt obs, request Dr. Baker for neuro consult and Dr. Noe for psych consult. - Lab Interpretations Lab Results: 05/03/17 16:00 05/03/17 16:00 Lab Results 05/03/17 17:30: Urine Color Light yellow, Urine Appearance Clear, Urine pH 6.0, Ur Specific [place] 1.015, Urine Protein Negative, Urine Glucose (UA) Negative, Urine Ketones Negative, Urine Blood Trace-intact H, Urine Nitrate Negative, Urine Bilirubin Negative, Urine Urobilinogen 0.2, Ur Leukocyte Esterase Negative , Urine RBC 0 - 2, Urine WBC 0 - 2, Ur Epithelial Cells 0 - 2, Urine Bacteria Trace 05/03/17 16:00: Sodium 140, Potassium 3.0 L, Chloride 99, Carbon Dioxide 32, Anion Gap 12, BUN 22 H, Creatinine 1.6 H, Est GFR ( Amer) 38, Est GFR ( Non-Af Amer) 32, Random Glucose 100, Calcium 10.4, Total Bilirubin 0.7, AST 15, ALT 31, Alkaline Phosphatase 107, Lactate Dehydrogenase 426, Total Creatine Kinase 28 L, Troponin I 0.02 D, Total Protein 7.3, Albumin 4.6, Globulin 2.7, Albumin/Globulin Ratio 1.7 05/03/17 16:00: WBC 8.3 D, RBC 4.47, Hgb 12.6, Hct 38.6, MCV 86.4, MCH 28.2, MCHC 32.6, RDW 16.2 H, Plt Count 352, MPV 9.1, Gran % 72.8 H, Lymph % (Auto) 20.4 L, Whitman % (Auto) 5.9, Eos % (Auto) 0.8 L, Baso % (Auto) 0.1, Gran # 6.06, Lymph # 1.7, Whitman # 0.5, Eos # 0.1, Baso # 0.01 I have reviewed the lab results: Yes - RAD Interpretation Narrative RAD Interpretations (Text): 05/03/17 22:20 CT head : FINDINGS: Brain: There are scattered foci of hypodensity within the cerebral white matter, likely representing small vessel ischemic disease in a patient this age. The acuity of the white matter disease is indeterminate. The white-sethi differentiation is preserved demonstrating no acute territorial type infarct. There is mild prominence of the ventricles and sulci, compatible with atrophy. No acute intracranial hemorrhage is seen. Midline shift: There is no midline shift. Ventricles: See above. Bones/joints: The calvarium demonstrates no evidence for a depressed fracture. Soft tissues: No acute abnormality. Vasculature: There is atherosclerotic calcification of the cavernous internal carotid arteries. Sinuses: Unremarkable as visualized. No acute sinusitis. Mastoid air cells: No mastoid effusion. IMPRESSION: 1. No acute intracranial hemorrhage or acute territorial type infarct. 2. There are scattered foci of hypodensity within the cerebral white matter, likely representing small vessel ischemic disease in a patient this age. 3. Mild atrophy. Dictated By: Gonzalo Maya MD, MD Dictated Date/Time: 05/03/172007 Radiology Orders: 05/03/17 15:21 CHEST PORTABLE [RAD] Stat 05/03/17 15:48 HEAD W/O CONTRAST [CT] Stat - EKG Interpretation Interpreted by ED Physician: Yes Type: 12 lead EKG - Medication Orders Current Medication Orders: Sodium Chloride (Sodium Chloride 0.9%) 1,000 mls @ 100 mls/hr IV .Q10H NIKI Last Admin: 05/03/17 16:00 Dose: 100 mls/hr eMAR Start Stop Document 05/03/17 16:00 SF (Rec: 05/03/17 16:00 SF [id number] Intravenous Solution Start Date 05/03/17 Start Time 16:00 End Date 05/03/17 Discontinued Medications Meclizine HCl (Antivert) 25 mg PO STAT STA Stop: 05/03/17 15:23 Last Admin: 05/03/17 15:59 Dose: 25 mg Meclizine HCl (Antivert) 25 mg PO STAT STA Stop: 05/03/17 20:51 Potassium Chloride (Potassium Chloride Oral Soln) 40 meq PO STAT STA Stop: 05/03/17 17:16 Last Admin: 05/03/17 17:34 Dose: 40 meq Potassium Chloride (Potassium Chloride Oral Soln) 40 meq PO ONCE ONE Stop: 05/03/17 18:16 Last Admin: 05/03/17 20:53 Dose: 40 meq - PA / INSOLE PRESSER / Resident Statement MD/DO has reviewed & agrees with the documentation as recorded. - Scribe Statement The provider has reviewed the documentation as recorded by the Chavaibe Shelly Alva Provider Scribe Attestation: All medical record entries made by the Scribe were at my direction and personally dictated by me. I have reviewed the chart and agree that the record accurately reflects my personal performance of the history, physical exam, medical decision making, and the department course for this patient. I have also personally directed, reviewed, and agree with the discharge instructions and disposition. Disposition/Present on Arrival - Present on Arrival Any Indicators Present on Arrival: No History of DVT/PE: No History of Uncontrolled Diabetes: No Urinary Catheter: No History of Decub. Ulcer: No History Surgical Site Infection Following: None - Disposition Have Diagnosis and Disposition been Completed?: Yes Diagnosis: Dizziness Disposition: HOSPITALIZED Disposition Time: 20:55 Patient Plan: Observation (remote tele) Patient Problems: Current Active Problems Problem Status Onset Dizziness Acute Condition: STABLE Referrals: Irma Castanon MD [Primary Care Provider] - Follow up with primary Forms: [employer] (Setswana)
[2017-05-03] MEDS ORDERED: Potassium Chloride 40 mEq/30 ml LIQ UD PO STA (17:15)
[2017-05-03 17:52] LABS: URINE BILIRUBIN NEGATIVE (NEGATIVE); URINE BLOOD TRACE-INTACT (NEGATIVE); URINE GLUCOSE (UA) NEGATIVE (NEGATIVE); URINE KETONE NEGATIVE (NEGATIVE); URINE LEUKOCYTE ESTERASE NEGATIVE Leu/uL (NEGATIVE); URINE PROTEIN NEGATIVE mg/dL (<30 mg/dL); URINE UROBILINOGEN 0.2 E.U./dL (<1 E.U./dL)
[2017-05-03 17:57] LABS: URINE APPEARANCE CLEAR (CLEAR); URINE COLOR LIGHT YELLOW (YELLOW)
[2017-05-03 18:02] LABS: URINE BACTERIA TRACE (NEG); URINE EPITHELIAL CELLS 0 - 2 /hpf (0-5); URINE RBC 0 - 2 /hpf (0-2); URINE WBC 0 - 2 /hpf (0-6)
[2017-05-03] MEDS ORDERED: Potassium Chloride 40 mEq/30 ml LIQ UD PO ONE (18:15)
--- NOTE | 2017-05-03 20:08 | CT ---
EXAM: CT Head Without Intravenous Contrast EXAM DATE/TIME: 05/03/2017 3:48 PM CLINICAL HISTORY: The patient age is 72 years old and is female; Signs and symptoms; Dizziness Facility exam id and description: Ct heads head w/o contrast TECHNIQUE: Axial computed tomography images of the head/brain without intravenous contrast. All CT scans at this facility use one or more dose reduction techniques, viz.: automated exposure control; ma/kV adjustment per patient size (including targeted exams where dose is matched to indication; i.e. head); or iterative reconstruction technique. COMPARISON: CT - HEAD W/O CONTRAST 2017-04-17 12:19 FINDINGS: Brain: There are scattered foci of hypodensity within the cerebral white matter, likely representing small vessel ischemic disease in a patient this age. The acuity of the white matter disease is indeterminate. The white-sethi differentiation is preserved demonstrating no acute territorial type infarct. There is mild prominence of the ventricles and sulci, compatible with atrophy. No acute intracranial hemorrhage is seen. Midline shift: There is no midline shift. Ventricles: See above. Bones/joints: The calvarium demonstrates no evidence for a depressed fracture. Soft tissues: No acute abnormality. Vasculature: There is atherosclerotic calcification of the cavernous internal carotid arteries. Sinuses: Unremarkable as visualized. No acute sinusitis. Mastoid air cells: No mastoid effusion. IMPRESSION: 1. No acute intracranial hemorrhage or acute territorial type infarct. 2. There are scattered foci of hypodensity within the cerebral white matter, likely representing small vessel ischemic disease in a patient this age. 3. Mild atrophy.
--- NOTE | 2017-05-04 09:56 | CP.PCM.CON ---
<Jacob Virk - Last Filed: 05/04/17 13:54> History of Present Illness - History of Present Illness History of Present Illness: Neurology consult note for Dr. Baker's service - Maciel Virk PGY2 Reason for consult: lightheadedness HPI: Patient is a 72 year-old female with past medical history of bipolar disorder, hyperlipidemia, hypertension, chronic kidney disease, prior psychiatric hospitalizations that presented to [facility] with complaints of lightheadedness. Patient reported that she had felt lightheaded yesterday which she reportedly had not experienced previously and decided to call her PMD, Dr. Castanon. Patient reported speaking to Dr. Castanon who recommended that she get some rest, drink plenty of fluids and make up an appointment with a neurologist. She reports that she went to rest and when she went to lay on her left side she began to experience dizziness and felt worsening of her symptoms. At this point, that patient decided to call EMS for further evaluation. She denied chest pain, palpitations, SOB, abdominal pain, nausea, vomiting, fever, chills, cough, focal weakness, numbness, tingling. 12point ROS as per HPI above otherwise negative PMH: as stated above PSH: left hip replacement (2013), right hip replacement (2017) Allergies: NKDA Social Hx: Denies alcohol and illicit drug use; Has a daughter and grandson Family Hx: non-contributory Past Patient History - Infectious Disease Hx of Infectious Diseases: None - Tetanus Immunizations Tetanus Immunization: Unknown - Past Social History Smoking Status: Former Smoker - CARDIAC Hx Cardiac Disorders: Yes Hx Hypertension: Yes - PULMONARY Hx Respiratory Disorders: Yes (USED TO SMOKE CIGARETTES < PPD) - NEUROLOGICAL Hx Neurological Disorder: Yes HX Cerebrovascular Accident: No Hx Dizziness: Yes Hx Seizures: No - HEENT Hx HEENT Problems: No - RENAL Hx Chronic Kidney Disease: Yes (3) - ENDOCRINE/METABOLIC Hx Endocrine Disorders: No - HEMATOLOGICAL/ONCOLOGICAL Hx Blood Disorders: No Hx Cancer: No - INTEGUMENTARY Hx Dermatological Problems: No - MUSCULOSKELETAL/RHEUMATOLOGICAL Hx Falls: No - GASTROINTESTINAL Hx Gastrointestinal Disorders: No - GENITOURINARY/GYNECOLOGICAL Hx Genitourinary Disorders: No Hx Sexually Transmitted Disorders: No - PSYCHIATRIC Hx Psychophysiologic Disorder: Yes Hx Bipolar Disorder: Yes - SURGICAL HISTORY Hx Orthopedic Surgery: Yes (left hip and right hip) - ANESTHESIA Hx Anesthesia: Yes Hx Anesthesia Reactions: No Meds Allergies/Adverse Reactions: Allergies Allergy/AdvReac Type Severity Reaction Status Date / Time No Known Allergies Allergy Verified 05/03/17 15:03 - Medications Medications: Current Medications Amlodipine Besylate (Norvasc) 10 mg PO DAILY [facility] Atorvastatin Calcium (Lipitor) 10 mg PO HS NIKI Bupropion HCl (Wellbutrin) 300 mg PO DAILY NIKI Clonazepam (Klonopin) 1 mg PO 1400 NIKI PRN Reason: Protocol Clonazepam (Klonopin) 1.5 mg PO HS NIKI PRN Reason: Protocol Donepezil HCl (Aricept) 1 mg PO HS NIKI Sodium Chloride (Sodium Chloride 0.9%) 1,000 mls @ 100 mls/hr IV .Q10H NIKI Last Admin: 05/03/17 16:00 Dose: 100 mls/hr Potassium Chloride (Potassium Chloride 20 Meq/100 Ml) 20 meq in 100 mls @ 50 mls/hr IVPB Q2H NIKI Stop: 05/04/17 13:59 Methylphenidate HCl (Ritalin) 10 mg PO BID NIKI Non-Formulary Medication (Lamotrigine [Lamictal]) 150 mg PO BID NIKI Non-Formulary Medication (Venlafaxine [Effexor Xr]) 75 mg PO DAILY NIKI Olanzapine (Zyprexa) 1 mg PO 1400 NIKI PRN Reason: Protocol Potassium Chloride (Klor-Con 10) 10 meq PO DAILY NIKI Spironolactone (Aldactone) 25 mg PO DAILY [facility] Physical Exam - Constitutional Appears: Non-toxic, No Acute Distress - Head Exam Head Exam: ATRAUMATIC, NORMAL INSPECTION, NORMOCEPHALIC - Eye Exam Eye Exam: EOMI, PERRL - ENT Exam ENT Exam: Mucous Membranes Moist - Neck Exam Neck exam: Positive for: Normal Inspection. Negative for: Lymphadenopathy, Tenderness, Thyromegaly - Respiratory Exam Respiratory Exam: Clear to Auscultation Bilateral. absent: Rales, Rhonchi, Wheezes - Cardiovascular Exam Cardiovascular Exam: RRR, +S1, +S2. absent: Gallop, JVD, Rubs - GI/Abdominal Exam GI & Abdominal Exam: Soft. absent: Distended, Firm, Guarding, Rebound, Tenderness - Extremities Exam Extremities exam: Positive for: normal inspection. Negative for: pedal edema, tenderness - Neurological Exam Neurological exam: Alert, CN II-XII Intact, Oriented x3 Additional comments: alert, awake, oriented x3 EOMI PERRL CN2-12 grossly intact motor function grossly intact bilaterally sensory intact throughout no drift proprioception intact babinski downward going bilaterally - Psychiatric Exam Psychiatric exam: Normal Affect, Normal Mood - Skin Skin Exam: Dry, Intact, Normal Color, Warm Results - Vital Signs Recent Vital Signs: Last Vital Signs Temp 97.9 F 05/04/17 07:56 Pulse 61 05/04/17 07:56 Resp 20 05/04/17 07:56 BP 128/71 05/04/17 07:56 Pulse Ox 95 05/04/17 07:56 - Labs Result Diagrams: 05/03/17 16:00 05/03/17 16:00 Labs: Laboratory Results - last 24 hr 05/04/17 07:37 POC Glucose (mg/dL) 87 Assessment & Plan - Assessment and Plan (Free Text) Plan: 72yo female with history of bipolar disorder, hyperlipidemia, hypertension, chronic kidney disease, prior psychiatric hospitalizations presents to [facility] with complaints of lightheaded and dizziness. 1. Dizziness/Lightheadedness 2. Bipolar disorder 3. Hyperlipidemia 4. Hypertension 5. Chronic kidney disease -Obtain orthostatic VS and physical therapy/occupation therapy evaluation -Follow up with psychiatry recommendations regarding current psychiatric medications -Monitor and correct electrolytes abnormalities as indicated -Maintain systolic blood pressure between 120-130 -CT Head reviewed; revealed no acute intracranial abnormalities -CXR reviewed; no acute findings -EKG reviewed; normal sinus rhythm at 78bpm with nonspecific T wave abnormality -Follow up with neurology as an outpatient for EMG/nerve conduction studies Patient seen and case discussed/reviewed with attending, Dr. Baker - Date & Time Date: 05/04/17 Time: 10:02 <Gustavo Baker - Last Filed: 05/04/17 15:44> Meds - Medications Medications: Current Medications Amlodipine Besylate (Norvasc) 10 mg PO DAILY [facility] Last Admin: 05/04/17 10:38 Dose: 10 mg Atorvastatin Calcium (Lipitor) 10 mg PO HS NIKI Bupropion HCl (Wellbutrin) 200 mg PO 1000 NIKI Clonazepam (Klonopin) 1.5 mg PO HS NIKI PRN Reason: Protocol Clonazepam (Klonopin) 0.5 mg PO 1400 NIKI Last Admin: 05/04/17 15:06 Dose: 0.5 mg Donepezil HCl (Aricept) 5 mg PO HS NIKI Sodium Chloride (Sodium Chloride 0.9%) 1,000 mls @ 100 mls/hr IV .Q10H NIKI Last Admin: 05/04/17 12:34 Dose: 100 mls/hr Potassium Chloride (Potassium Chloride 20 Meq/100 Ml) 20 meq in 100 mls @ 50 mls/hr IVPB Q2H NIKI Lamotrigine (Lamictal) 150 mg PO BID [facility] Last Admin: 05/04/17 10:35 Dose: 150 mg Methylphenidate HCl (Ritalin) 5 mg PO 0800,1400 [facility] Olanzapine (Zyprexa) 2.5 mg PO 1400 [facility] PRN Reason: Protocol Last Admin: 05/04/17 15:05 Dose: 2.5 mg Potassium Chloride (Klor-Con 10) 10 meq PO DAILY [facility] Last Admin: 05/04/17 10:38 Dose: 10 meq Potassium Chloride (K-Dur 20 Meq Er Tab) 20 meq PO ONCE ONE Stop: 05/04/17 15:43 Spironolactone (Aldactone) 25 mg PO DAILY [facility] Last Admin: 05/04/17 10:37 Dose: 25 mg Venlafaxine HCl (Effexor Xr) 75 mg PO DAILY [facility] Last Admin: 05/04/17 10:56 Dose: 75 mg Results - Vital Signs Recent Vital Signs: Last Vital Signs Temp 97.9 F 05/04/17 07:56 Pulse 61 05/04/17 07:56 Resp 20 05/04/17 07:56 BP 130/70 05/04/17 10:38 Pulse Ox 95 05/04/17 07:56 - Labs Result Diagrams: 05/03/17 16:00 05/04/17 10:00 Labs: Laboratory Results - last 24 hr 05/04/17 05/04/17 05/04/17 07:37 10:00 11:41 Sodium 141 Potassium 3.4 L Chloride 100 Carbon Dioxide 31 Anion Gap 13 BUN 17 Creatinine 1.4 H Est GFR ( Amer) 45 Est GFR (Non-Af Amer) 37 POC Glucose (mg/dL) 87 112 H Random Glucose 207 H Calcium 9.7 Total Bilirubin 0.7 AST 19 ALT 23 Alkaline Phosphatase 79 Total Protein 6.7 Albumin 4.0 Globulin 2.7 Albumin/Globulin Ratio 1.5 Attending/Attestation - Attestation I have personally seen and examined this patient.: Yes I have fully participated in the care of the patient.: Yes I have reviewed all pertinent clinical information: Yes
--- NOTE | 2017-05-04 10:13 | CARD ---
APPROVED REPORT EKG Measurement Heart [id number] MD [id number] <Conclusion> Normal sinus rhythm Nonspecific T wave abnormality Abnormal ECG
[2017-05-04 10:36] LABS: ALB/GLOB RATIO 1.5 (1.1-1.8); BILIRUBIN,TOTAL 0.7 mg/dL (0.2-1.3); CALCIUM 9.7 mg/dL (8.4-10.5); POTASSIUM 3.4 mmol/L (3.6-5.0); TOTAL PROTEIN 6.7 g/dL (5.8-8.3)
[2017-05-04] MEDS: Potassium Chloride 10 mEq ER Tab PO SCH (10:38)
[2017-05-04] MEDS: Venlafaxine 75 mg ER Cap PO SCH (10:56)
[2017-05-04] MEDS: Sodium Chloride 0.9% 1,000 ML IV SCH ×2 (12:34→22:30)
[2017-05-04] MEDS ORDERED: Potassium Chloride 20 mEq ER Tab PO ONE (15:42)
--- NOTE | 2017-05-04 18:24 | CON ---
DATE: 05/04/2017 REASON FOR CONSULTATION: Hypokalemia and renal insufficiency. HISTORY OF PRESENTING ILLNESS: A 72-year-old lady known to us from recent evaluation at the end of March, was brought to the emergency room because of extreme dizziness, weakness, lightheadedness. The patient has a history of chronic kidney disease stage II, baseline creatinine is 1.4. She has a history of hypertension, osteoporosis, osteoarthritis. She also has a history of bipolar disorder. She was on lithium in the past. In the emergency room, she was found to have potassium of 3.0. Review of old records shows that she has had a history of hypokalemia at least dating back to 2014. PAST MEDICAL AND SURGICAL HISTORY: Hypertension, osteoarthritis, bipolar disorder, chronic kidney disease stage II, bilateral hip replacements, hyperlipidemia. FAMILY HISTORY: CAD in father and breast cancer in mother. PERSONAL HISTORY: Ex-smoker, no alcohol use, no IV drug abuse. ALLERGIES: NO KNOWN DRUG ALLERGIES. MEDICATIONS AT HOME: Include Aldactone 25 mg daily, Aricept, Effexor. Klonopin, K-Janet 10 mEq daily, Lamictal, Lipitor, amlodipine, KCl 20 mEq x2, Ritalin, normal saline at 100, Wellbutrin, olanzapine. REVIEW OF SYSTEMS: All systems are reviewed, pertinent positives as mentioned in history of presenting illness, rest unremarkable. PHYSICAL EXAMINATION: GENERAL: Elderly lady, lying in bed. VITAL SIGNS: Blood pressure 126/72, heart rate 73, respiratory rate 20, temperature 99. HEENT: Normocephalic, atraumatic. NECK: Supple, no JVD. LUNGS: Bilateral equal air entry, no rales. CARDIAC: S1, S2, regular rate and rhythm, no murmur, no rub. ABDOMEN: Obese, distended, soft, nontender, bowel sounds present. EXTREMITIES: No lower extremity edema. LABORATORY DATA: Urinalysis: Yellow clear, pH 6.0, specific gravity 1.015, protein negative, ketones negative, blood trace. Sodium 141, potassium 3.4, chloride 100, CO2 of 31, BUN 17, creatinine 1.4, glucose 207, calcium 9.7, AST 19, ALT 23, albumin 4.0. WBC 8.3, hemoglobin 12.6, hematocrit 38.6 and platelets 352. Renal ultrasound done on 04/21, left kidney 9.4, right kidney 8.0. No obstructive uropathy, poor corticomedullary differentiation. ASSESSMENT: 1. History of bipolar disorder, history of lithium use in the past. 2. Chronic kidney disease stage II. 3. Severe hypokalemia. 4. Hypernatremia, dehydration. 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 6. Asymmetrical kidneys,? renal artery stenosis. PLAN 1. Renal artery Doppler. 2. Replace potassium aggressively. 4. Continue IV fluids. 5. Increase Aldactone to 25 mg b.i.d. Swati Angeles MD
--- NOTE | 2017-05-05 01:11 | CON ---
PULMONARY CONSULT REFERRING PHYSICIAN: Dr. Irma Castanon. REASON FOR CONSULT: Near syncope, may have chronic lung disease, rule out sleep apnea syndrome. mild pulmonary hypertension. HISTORY OF PRESENT ILLNESS: This is a 72-year-old female with known history of bipolar disorder on multiple medications, hyperlipidemia, hypertension, mild renal insufficiency, mild pulmonary hypertension, smoker, has a near syncope. Presently no headache, no rhinitis. No chest pain. No nausea, no vomiting, no diarrhea. No leg pain or leg swelling. PAST MEDICAL HISTORY: Bipolar disorder, hyperlipidemia, hypertension, renal insufficiency, mild pulmonary hypertension, may have sleep apnea syndrome, chronic lung disease. SOCIAL HISTORY: Has a history of smoking. Denies any alcohol use. ALLERGIES: NONE KNOWN. FAMILY HISTORY: No significant cardiopulmonary disease reported. MEDICATIONS: She is on Aldactone 25 mg twice a day, Effexor XR 75 mg daily, Klonopin 0.5 mg daily, also Klonopin 1.5 mg at bedtime, potassium 10 mEq daily, Lamictal 150 mg twice a day, Lipitor 10 mg at bedtime, Norvasc 10 mg daily, potassium with fluid 60 mL/hour, Ritalin 5 mg twice a day, IV fluid normal saline 100 mL/hour, Wellbutrin 200 mg daily, Zyprexa 2.5 mg daily. REVIEW OF SYSTEMS: There is no headache, no rhinitis. Admit to have snoring, daytime sleepy and tired. No chest pain. No dysuria. No leg pain or leg swelling. PHYSICAL EXAMINATION: GENERAL: Lying in the bed, no acute distress. VITAL SIGNS: Temperature is 99, heart rate 73, respiratory rate is 20, blood pressure 126/72, pulse ox 95% on room air. HEENT: Moist mucous membranes. Crowded airway. Mallampati score is 4. NECK: Supple. JVD. LUNGS: Has fair airflow with few rhonchi. HERAT: S1 and S2. ABDOMEN: Soft, nontender. No organomegaly. EXTREMITIES: No edema. NEUROLOGICAL: Awake, alert, follows simple commands. LABORATORY DATA: Shows hemoglobin 12.6, hematocrit 38.6, WBC 8.3, platelet is 352. Sodium 141, potassium 3.4, chloride 100, bicarbonate 31, BUN 17, creatinine 1.4, glucose 207, calcium 9.7, AST 19, ALT 23, alk phos is 79. Albumin is 4.0. IMPRESSION AND PLAN: Near syncope, mild pulmonary hypertension, may have sleep apnea syndrome, need to rule out chronic lung disease, renal insufficiency, history of bipolar disorder, hyperlipidemia, hypertension. The patient seen by Nephrology, also seen by Neurology. Keep head elevated at 45 degrees. We will check orthostatic hypotension. Out of bed to chair. Gastric and deep venous thrombosis prophylaxis. Start physical therapy. We will suggest sleep study and PFT as outpatient. Thank you and we will follow with you. Joy Richter MD
--- NOTE | 2017-05-05 02:44 | HP ---
ADDENDUM PHYSICAL EXAMINATION VITAL SIGNS: Temperature 97.9, pulse 61, blood pressure 130/70 and respiratory rate 20. HEENT: Head; normocephalic and atraumatic. Eyes; PERRLA. Extraocular muscles intact. Conjunctivae clear. Nose patent. Mucous membrane moist. NECK: Supple. No carotid bruits, JVD, or thyromegaly. CHEST: Bilaterally symmetrical. HEART: S1 and S2 positive. LUNGS: Clear to auscultation. ABDOMEN: Soft, bowel sounds positive. No organomegaly. EXTREMITIES: No edema. No cyanosis. NEUROLOGICAL: The patient is awake and alert. Moving all four extremities. No focal deficit. LABORATORY DATA: White blood cells 8.3, hemoglobin 12.6, hematocrit 38.6, and platelets 352. Sodium 141, potassium 3.4, BUN 70, creatinine 1.4, glucose 207. ASSESSMENT AND PLAN: Ms. Gabbi Trujillo is a 72-year-old lady with hypokalemia replaced, renal insufficiency, has a hematuria, came with dizziness and lightheadedness. A CAT scan of the head done. No acute interval hemorrhage or acute territorial type infarction. There are scattered foci of the hypodensity within the cerebral white matter. small vessel ischemic disease in a patient with this age mild atrophy, history of bipolar. Her psychiatrist is Dr. Noe. Seen by Dr. Noe as outpatient also, history of hypertension, hypercholesteremia, chronic kidney disease. Has a prior psych hospitalization. Now, we call a Neurology, Psych and we will call ENT also. The patient is getting physical therapy. We will get orthostatic versus physical therapy versus occupational therapy evaluation. Follow up psych recommended. Repeat the electrolytes especially hypokalemia. Chest x-ray show no acute findings. EKG reveals normal sinus rhythm at 78 bpm with nonspecific T-wave abnormalities. We will continue follow up. Repeat labs. We will follow up. Irma Castanon MD [facility]
--- NOTE | 2017-05-05 03:54 | PN ---
SUBJECTIVE: Patient is seen and examined at the bedside. Patient's daughter Olena was sitting on the bedside also. No nausea, vomiting, diarrhea. No hematuria or hematochezia. No headache. Patient has lightheadedness and dizziness. No fever. No chills. No chest pain. No palpitations. PHYSICAL EXAMINATION VITAL SIGNS: Temperature 98.6, pulse 73, respiratory rate 20, blood pressure 123/72. HEENT: Head is normocephalic, atraumatic. Eyes, PERRLA. Extraocular muscles are intact. Conjunctivae are clear. Nose is patent. Mucous membranes are moist. NECK: Supple. No carotid bruits, JVD or thyromegaly. CHEST: Bilaterally symmetrical. HEART: S1, S2 positive. LUNGS: Clear to auscultation. ABDOMEN: Soft. Bowel sounds present. No organomegaly. EXTREMITIES: No edema. No cyanosis. NEUROLOGIC: The patient is awake and alert. Moving all 4 extremities. No focal deficits. MEDICATIONS: Aldactone, Effexor, Klonopin, potassium, Lamictal, Lipitor, amlodipine, methylphenidate, Wellbutrin, Zyprexa. LABS: White blood cell 8.3, hemoglobin 12.6, hematocrit 38.6, platelets 352. Sodium 141, potassium on admission was 3.0, now is 3.4. BUN 70, creatinine 1.4, glucose 112. ASSESSMENT AND PLAN: Ms. 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 She increased Aldactone to b.i.d., seen by Dr. Baker. She has also hypercholesterolemia, hypertension, prior hospitalization in the psych, now came with dizziness and lightheadedness. Discussion with patient's daughter Olena. Physical therapy given, may be we will take her to TCU, repeat labs, we will follow. Irma Castanon MD [facility]
--- NOTE | 2017-05-05 08:25 | CON ---
PSYCHIATRIC CONSULTATION DATE: 05/04/2017 HISTORY OF PRESENT ILLNESS: The patient is a 72-year-old female. She is well known to me. I followed her in my office for the past 3 months. The patient was admitted for apparently dizziness and hypokalemia. She has multiple medical problems. The patient has a history of bipolar disorder, mild cognitive impairment. She also has a history of chronic kidney disease felt to be related to being treated many years ago with lithium. The patient has been treated with multiple psychotropic medications. PAST HISTORY: Her other medical problems in addition to the cognitive impairment, bipolar disorder and chronic kidney disease includes history of hypertension and hyperlipidemia. PERSONAL HISTORY: She lives in a multi-unit family home. She is a . She has a daughter. She has a grandson, has no history of alcohol or substance abuse. CURRENT MEDICATIONS: Include; Wellbutrin 300 mg daily, Aldactone, Aricept, Effexor 75 mg daily, clonazepam 1 mg daily and 1.5 mg at bedtime., Klor-Con 10 mEq daily, Lamictal 150 mg b.i.d., Lipitor 10 mg every bedtime, Norvasc 10 mg daily, IV potassium and IV fluids, Ritalin 10 mg b.i.d., Zyprexa 2.5 mg at 2 p.m. REVIEW OF SYSTEMS: She complains of slight dizziness, lightheadedness. The patient otherwise had no other 12-point of review noncontributory except for anxiety and nervousness. PHYSICAL EXAMINATION: VITAL SIGNS: Blood pressure is 130/70, pulse is 61, afebrile, respirations are 20 per minute. MENTAL STATUS: Psychiatrically her mental status; she is awake, she is alert, she is coherent, recognizes me, oriented x3. She has some degree of mild impairment in recent memory. She is anxious, nervous. Denies suicidal ideation, psychotic symptoms at the present time. The patient's recent memory is slightly impaired as to exact dosages at this time which she has been at home as far as her medications though. LABORATORY DATA: The patient's current laboratory data on admission her white count is 83,000, hemoglobin was 12.6, and platelet count of 352,000. Her metabolic profile on admission: She has sodium of 140, potassium of 3.0, chloride of 99, CO2 of 32, anion gap of 12, BUN of 22, and creatinine of 1.6. Estimated GFR of 32. Rest of parameters are within normal limits. Today, her potassium after separate dose was 3.4, her BUN was 17, creatinine of 1.4. Estimated GFR of 37. DIAGNOSTIC DATA: The patient had a CT scan yesterday that has showed a mild atrophy with scattered hypodensity within the cerebral white matter representing the small vessel ischemic disease, no infracts. She has atherosclerotic calcification of the cavernous internal carotid arteries. The patient had an electrocardiogram yesterday which was charted as normal sinus rhythm, non-specific T-wave changes, QTc interval 46 ms, heart rate is 78. IMPRESSION: The patient was admitted for hypokalemia with long-standing chronic kidney disease, history of bipolar disorder, mixed type; history of [id number]-[id number]-apesysby cognitive impairment.. She has history of hypertension and hyperlipidemia. PLAN: She should be on Ritalin 5 mg a.m and afternoon which I will change. She should also be on Wellbutrin SR 200 mg daily which I would change to 300 mg. Continue Zyprexa. Also the patient's dose during the day of clonazepam should be 0.5 daily and I will change that appropriately. I will follow the patient as an outpatient. Feel free to call me for further discussion of this case. Jayden Noe MD
--- NOTE | 2017-05-05 08:26 | HP ---
The patient was seen and examined on the bedside on 05/04/2017. I am doing history and physical for 05/04/2017. CHIEF COMPLAINT: Headache and dizziness. HISTORY OF PRESENT ILLNESS: Ms. Gabbi Trujillo, a 72-year-old female with past medical history of hypertension, hypercholesterolemia and depression, came to the emergency department complaining of dizziness and lightheadedness. Patient states that her symptoms began last night. The patient describes dizziness, lightheadedness sensation that is worsened when lying down on her left side and is nearly bad early in the morning. She says that when she lies down she feels like her head is spinning. He noticed that she was admitted 10 days ago and discharged 1 week ago for hypokalemia. The patient's daughter states that the patient had started two psych medications Zyprexa and Aricept for dementia. The patient denies fevers and chills. No nausea, vomiting or diarrhea. No hematuria or hematochezia. PAST MEDICAL HISTORY: Hypertension, bipolar, renal insufficiency, osteoarthritis in the knees, left hip and right hip surgeries. FAMILY HISTORY: Father and mother noncontributory. HABITS: No alcohol, no substance abuse. Former smoker. ALLERGIES: THE PATIENT IS NOT ALLERGIC TO ANY MEDICATIONS. HOME MEDICATIONS: Lipitor, Klonopin, Aricept, Zyprexa, should be on Aldactone and potassium, but was not taking, noncompliant. REVIEW OF SYSTEMS: The patient was seen and examined at the bedside in the ER. Daughter and grandson was sitting on the bedside also. Looking anxious, dizziness, lightheadedness. No cough or chest pain. No abdominal pain and no stool changes. No diarrhea, nausea or vomiting. No hematuria, no hematochezia. No back pain. No neck pain. PHYSICAL EXAMINATION: VITAL SIGNS: Temperature 98.3, pulse 79, respiratory rate 18, blood pressure 136/75, and pulse oximetry 98%. HEENT: Head is normocephalic and atraumatic. Eyes; PERRLA. Extraocular muscles are intact. Conjunctivae are clear. Nose is patent. Mucous membrane moist. NECK: Supple. No carotid bruits. No JVD or thyromegaly. CHEST: Bilaterally symmetrical. HEART: S1 and S2 positive. LUNGS: Clear to auscultation. ABDOMEN: Soft. Bowel sounds present. No organomegaly. EXTREMITIES: No edema. No cyanosis. Irma Castanon MD
--- NOTE | 2017-05-05 08:49 | US ---
PROCEDURE: Bilateral renal artery duplex ultrasound. CLINICAL HISTORY: Renal artery stenosis. Uncontrolled hypertension. Evaluate for renovascular hypertension. PHYSICIAN(S): Efrain Ferris M.D. TECHNIQUE: Duplex sonography with color-flow Doppler was used to evaluate the visualized segments of the main renal arteries. The patient was evaluated in a fasting state. Imaging in a supine and decubitus position was performed. Limited evaluation of the arcuate waveforms and resistive indices were performed. FINDINGS: The exam is very limited by bowel gas and body habitus. The main renal arteries are not well visualized. The kidneys are normal in size, shape, and location. The right kidney measures 10.0cm in length and the left kidney measures 10.0cm in length. No solid renal masses, abnormal calcifications, or hydronephrosis is seen. The renal parenchyma is somewhat echogenic in appearance. The main right renal artery is not well visualized.. The peak systolic velocity in the right main renal artery is 109 cm/sec. This is consistent with a 0 to 49% stenosis in the main right renal artery. The arcuate waveforms are normal. The main left renal artery is also not well-visualized. The peak systolic velocity in the main left renal artery is the 5cm/sec. This corresponds to a 0 to 49% stenosis in the main left renal artery. IMPRESSION: 1. The main renal arteries are not well visualized. If clinical suspicion for renal artery stenosis is high, additional imaging should be performed. 2. No sonographically significant stenosis is identified. 3. The kidneys are normal and symmetric in size. There are no solid renal masses, abnormal calcifications or hydronephrosis noted. Renal parenchyma is somewhat echogenic in appearance.
[2017-05-05] MEDS: Potassium Chloride 10 mEq ER Tab PO SCH (10:32)
[2017-05-05] MEDS: Venlafaxine 75 mg ER Cap PO SCH (10:33)
[2017-05-05 12:03] LABS: ALB/GLOB RATIO 1.4 (1.1-1.8); BILIRUBIN,TOTAL 0.5 mg/dL (0.2-1.3); CALCIUM 9.1 mg/dL (8.4-10.5); POTASSIUM 3.4 mmol/L (3.6-5.0); TOTAL PROTEIN 6.6 g/dL (5.8-8.3)
[2017-05-05] MEDS ORDERED: Potassium Chloride 20 mEq ER Tab PO ONE (12:33)
--- NOTE | 2017-05-05 13:34 | PN ---
SUBJECTIVE: The patient is currently seen on 3R, she is sitting up in a chair, she is still complaining of feeling lightheaded and dizzy. She is upset that she states she might need to go to a detention on a prominent basis as her family is not around on a full-time basis to help take care of her. She is hoping that her dizziness and lightheadedness resolves. Of note from a renal standpoint, her creatinine is back to 1.4 back to baseline levels. Her renal ultrasound shows symmetrical kidneys with a negative renal artery Doppler study. MEDICATIONS: Medication list reviewed. The patient is currently on Aldactone, Antivert, Effexor, Klonopin, potassium tabs, Lamictal, Lipitor, Norvasc, Ritalin, IV fluids have been discontinued, Wellbutrin and Zyprexa. OBJECTIVE: INTAKE AND OUTPUT: Intake 2760, output is 802. VITAL SIGNS: Blood pressure is 123/69, temperature is 97.6, respiratory rate is 20, pulse ox 97%. HEENT: Shows her be normocephalic, atraumatic. Conjunctivae pink. Sclerae nonicteric. NECK: Supple. No neck vein distention. CHEST: Clear to auscultation and percussion. No rales, no rhonchi, no wheezing. CARDIOVASCULAR: Shows an irregular rate and rhythm with AI/MR/TR. No ST, no S4, no rub. ABDOMEN: Soft. Bowel sounds normal. No rebound, no guarding or masses. EXTREMITIES: Show no cyanosis, clubbing or edema. LABORATORY DATA AND IMAGING: CBC from admission: White blood cell count 8.2 with hemoglobin of 12.6, platelet count is 352,000. Chemistries: Sodium level is 141. Potassium level was 3 on admission, currently 3.4. Chloride 104 with a CO2 of 31, BUN is 14 at baseline. Creatinine is down from 1.6 to 1.4 at baseline. Glucose is 91. Calcium is 9.1, liver enzymes are normal, albumin is 3.9. Urinalysis was negative on admission. Imaging: Renal ultrasound showed symmetrical 10 cm kidneys with a negative renal artery Doppler study for renal artery stenosis. Head CT showed no acute changes. Mild atrophy. Chest x-ray showed no active pulmonary disease. Admitting EKG showed a normal sinus rhythm. ASSESSMENT: 1. Acute onset of dizziness and lightheadedness. The patient is being evaluated by neurology, she remains on Antivert. She is perhaps less symptomatic. No definite abnormal findings were found today. 2. History of chronic kidney disease stage III with no significant proteinuria, 24-hour urine was done previous admission which showed a creatinine clearance of 31 ml per minute with 126 mg of protein. She is felt to quite possibly have chronic tubular interstitial nephritis perhaps secondary to past use of lithium for her bipolar disorder. 3. History of hypertension, blood pressure is controlled on present medical therapy. She should continue calcium channel héctor therapy along with Aldactone. 4. Status post mild hypokalemia. The patient will continue potassium supplements on a p.r.n. basis and Aldactone. 5. History of bipolar disorder. The patient is currently on new medications as per Dr. Noe. Perhaps these medications are responsible for her dizziness. 6. History of osteoporosis, currently stable. 7. History of hyperlipidemia, the patient remains on diet and statin therapy. 8. History of mild valvular heart disease, currently stable. PLAN: 1. We will continue to monitor labs during hospitalization. I expect her creatinine to stay in the mid 1 range. 2. Continue to monitor potassium levels, continue supplements on a p.r.n. basis. 3. Continue Antivert for her dizziness. It does not appear that the patient had vertigo. 4. Dr. Noe to assess new medications given to the patient for treatment of bipolar disorder to see of any of these might be responsible for her lightheadedness and dizziness. 5. The patient is rather emotional and states that she might need to a detention because her family is not around to help take care of her. Linden Olson MD
[2017-05-05] MEDS: Sodium Chloride 0.9% 1,000 ML IV SCH (21:11)
--- NOTE | 2017-05-05 21:54 | PN ---
DATE: SUBJECTIVE: The patient is a 72-year-old female. The patient is seen and examined on the bedside, sitting on the chair, looking comfortable, still feeling dizzy, lightheadedness. She is talking about long term and looks upset, tried to educate her. We will work with her family. ENT consult called with Dr. Mercer and Antivert started. Her renal transplant was done, shows symmetrical kidneys with negative renal artery Doppler study. PHYSICAL EXAMINATION: VITAL SIGNS: Blood pressure 123/69, temperature 97.6, respiratory rate 20, and pulse oximetry 97. HEENT: Head is normocephalic and atraumatic. Eyes; PERRLA. Extraocular muscles intact. Conjunctivae clear. Nose patent. Mucous membranes moist. NECK: Supple. No carotid bruit, JVD or thyromegaly. CHEST: Bilaterally symmetrical. HEART: S1 and S2 positive. LUNGS: Clear to auscultation. ABDOMEN: Soft. Bowel sounds positive. No organomegaly. EXTREMITIES: No edema. No cyanosis. NEUROLOGICAL: The patient is awake and alert. Moving all 4 extremities. No focal deficit. MEDICATIONS: Aldactone, Antivert, Effexor, Klonopin, potassium, Lipitor, Norvasc, Ritalin, IV fluid was discontinued. Wellbutrin, and Zyprexa. LABORATORY DATA: White blood cells 8.2, hemoglobin 12.6, and platelet 352,000. Sodium 141, potassium 3, BUN 14, and glucose 91. ASSESSMENT: Ms. Gabbi Trujillo came with acute onset of dizziness and lightheadedness. The patient is being evaluated by Neurologist, Business Banking Manager and ENT. Started the patient on Antivert. History of chronic kidney disease, stage II with known significant proteinuria. The patient has chronic tubular interstitial nephritis, perhaps secondary to part of use of that lithium for her bipolar disorder, history of hypertension, getting stable, status post hypokalemia, replaced, history of bipolar disorder, Dr. Noe is on the case, history of osteoarthritis, currently stable on calcium, history of hyperlipidemia, started on statin, history of mild valvular heart disease, currently stable. PLAN: I stopped Aricept yesterday as per family request, started Antivert and ENT consult called. Physical Therapy given and may we will take the patient to TCU for further deconditioning. We will wait Dr. Noe's input. Repeat labs. We will follow. Irma Castanon MD [facility]
--- NOTE | 2017-05-06 01:38 | PN ---
DATE: 05/05/2017 REFERRING PHYSICIAN: Dr. Castanon. SUBJECTIVE: She is lying in the bed, sleepy, arousable. Night was unremarkable. Still gets dizzy even moving on the bed, but did not get dizzy while sitting up in a chair. No cough. No sputum production. No nausea, no vomiting, no diarrhea. No leg pain or leg swelling. OBJECTIVE: GENERAL: In no acute distress. VITAL SIGNS: Temperature is 98, heart rate is 64, respiratory rate is 20, blood pressure 142/79. There was no tilt. HEENT: Moist mucous membranes. Crowded airway. Mallampati score is IV. NECK: Supple. No JVD. LUNGS: Has a fair airflow with few rhonchi. HEART: S1 and S2. ABDOMEN: Soft and nontender. No organomegaly. EXTREMITIES: No edema. NEUROLOGIC: Sleepy, arousable, follows simple commands. MEDICATIONS: She is on Aldactone 25 mg twice a day, Antivert 12.5 mg 3 times a day, Effexor XR 75 mg daily, clonazepam 0.5 mg daily and also 1.5 mg at bedtime, potassium 10 mEq daily, lamotrigine 150 mg twice a day, Lipitor 10 mg daily, Norvasc 10 mg daily, IV fluid with potassium 10 mL/hour, Ritalin 5 mg twice a day, IV fluid normal saline 100 mL/hour, Wellbutrin 200 mg daily and Zyprexa 2.5 mg daily. LABORATORY DATA: Shows sodium 141, potassium of 3.4, chloride of 104, bicarbonate 31, BUN 14, creatinine 1.4, glucose is 97, calcium is 9.1, AST 31, ALT 31, alk phos is 80, albumin is 3.9. IMPRESSION AND PLAN: Near syncope, mild pulmonary hypertension, may have sleep apnea syndrome, chronic lung disease, renal insufficiency, bipolar disorder, hyperlipidemia, hypertension. Pulmonary point of view, she is doing okay. Keep head 45 degrees. Sleep apnea precautions. Need outpatient sleep study. and pulmonary function tests. May need to adjust psych medications. She will benefit on physical therapy. Thank you and we will follow with you. Joy Richter MD [facility] # [id number]
[2017-05-06 07:42] LABS: HEMATOCRIT 32.7 % (36.0-48.0); MEAN CORPUSCULAR HEMOGLOBIN 27.7 pg (25.0-35.0); MEAN CORPUSCULAR HGB CONC 31.8 g/dl (31.0-37.0); MEAN PLATELET VOLUME 9.2 fl (7.0-11.0); RED CELL DISTRIBUTION WIDTH 16.7 % (11.5-14.5); WHITE BLOOD COUNT 5.5 10^3/ul (4.5-11.0)
[2017-05-06 07:48] LABS: ALB/GLOB RATIO 1.3 (1.1-1.8); BILIRUBIN,TOTAL 0.5 mg/dL (0.2-1.3); CALCIUM 9.3 mg/dL (8.4-10.5); MAGNESIUM 1.7 mg/dL (1.7-2.2); POTASSIUM 3.6 mmol/L (3.6-5.0); TOTAL PROTEIN 6.2 g/dL (5.8-8.3)
[2017-05-06 08:00] VITALS: PULSE 64; RESP 20; TEMP 98.3; O2SAT 99
[2017-05-06] MEDS: Venlafaxine 75 mg ER Cap PO SCH (09:26)
[2017-05-06] MEDS: Potassium Chloride 10 mEq ER Tab PO SCH (09:26)
[2017-05-06 09:49] VITALS: BP 147/83
[2017-05-06] MEDS ORDERED: Potassium Chloride 20 mEq ER Tab PO ONE (11:33)
[2017-05-06] MEDS ORDERED: Potassium Chloride 20 mEq ER Tab PO SCH (18:00)
--- NOTE | 2017-05-07 12:01 | PN ---
DATE: 05/06/2017 PULMONARY PROGRESS NOTE REFERRING PHYSICIAN: Irma Castanon MD SUBJECTIVE: She is sitting side of the bed. She is able to walk on the nursing station with help of therapist. No dizzy spell today. Dry mouth. No nausea and no diarrhea. No leg pain or leg swelling. OBJECTIVE: GENERAL: In no acute distress. VITAL SIGNS: Temperature is 98, heart rate is 64, respiratory rate is 20, blood pressure is 138/65 and pulse is 99% on room air. HEENT: Dry mucous membrane. Crowded airway. NECK: Short thick neck. LUNGS: Has fair airflow with few rhonchi. HEART: S1 and S2. ABDOMEN: Soft and nontender. No organomegaly. EXTREMITIES: There is no edema. NEUROLOGICAL: Awake and alert. Follow simple commands. LABORATORY DATA: Shows hemoglobin of 10.4, hematocrit of 32.7, WBC of 5.5, and platelet count is 293. Sodium is 141, potassium is 3.6, chloride is 107, bicarbonate is 28, BUN is 11 and creatinine is 1.3. Glucose is 104, calcium is 9.3, phosphorus is 3.0, and magnesium is 1.7. AST is 15, ALT is 27, and alkaline phosphatase is 69. Albumin is 3.5. MEDICATIONS: She is on Aldactone 25 mg twice a day, Antivert 12.5 mg three times a day, p.r.n., Effexor XR 75 mg daily, potassium 20 mEq twice a day, Klonopin 0.5 mg daily and also 1.5 mg at bedtime, Lamictal 150 mg twice a day, Lipitor 10 mg daily, Norvasc 10 mg daily, potassium 20 mEq 100 mL per hour, Ritalin 5 mg twice a day, IV fluid normal saline 100 mL per hour, Wellbutrin 200 mg daily, and Zyprexa 2.5 mg daily. IMPRESSION AND PLAN: Near syncope, mild pulmonary hypertension, may have component of sleep apnea syndrome, chronic lung disease, renal insufficiency, bipolar disorder, hyperlipidemia, and hypertension. Pulmonary point of view, she is doing well. Keep head at 45 degrees. Careful with sedation. Out patient sleep study. Readjust psychiatric medication. Agreed with the therapy, of course she is at high risk because of sedatives for her disease. Thank you and we will follow with you. Joy Richter MD [facility] # [id number]
--- NOTE | 2017-05-08 00:40 | CON ---
DATE: 05/07/2017 OTOLARYNGOLOGY CONSULTATION CONSULTING PHYSICIAN: Irma Castanon MD CHIEF COMPLAINT: Dizziness. HISTORY OF PRESENTING ILLNESS: This is a 72-year-old female with past medical history of bipolar disorder, renal insufficiency, hypertension and hyperlipidemia, who presented to the [place] [facility] with dizziness, which she states she feels when she lies down to the left side and feels a room spinning sensation that lasts approximately 1 minute and then dissipates. The patient states that if she does not move her head in that direction, she does not feel as dizzy. The patient states she has been working with occupational therapy, she has been getting out of the bed and has been able to walk with her walker. The patient states she uses her walker because of history of bilateral hip replacements. The patient states she is very anxious about leaving the hospital. She has been worked up with cardiac workup as well as CT of the head, which has been reviewed. The patient was also found to have hypokalemia on admission and was replaced. There is no evidence of acute hemorrhage or territorial type of infarct on CT scan. She has been seen by her psychiatrist. Neurology has also seen the patient. She denies any history of severe hearing loss, loud noise exposure, tinnitus, otorrhea, or ear pain. She states that this is the first that she has had this type of dizziness and she denies any recent head trauma. She denies any nausea or vomiting. REVIEW OF SYSTEMS: A 12-point review of systems is negative except as stated in the HPI. PHYSICAL EXAMINATION: GENERAL: The patient is alert and oriented to person, place and time, in no acute distress. Conversation of speech is fluent. VITAL SIGNS: Temperature is 97.7, pulse is 57, blood pressure is 136/72, respiratory rate is 18, and oxygen saturation is 96% on room air. HEENT: Head is normocephalic and atraumatic. Ears: Auricles are symmetric and no masses. Right tympanic membrane is easily visualized. There is no evidence of effusions. There is retraction or bulging. Left TM is easily visualized. There are no effusions. No retraction or bulging. The Thayer is non-lateralizing. Rinne test; air conduction is greater than bone conduction bilaterally. Eyes: Extraocular muscles are intact. There are no visual changes. Nose: Nares are patent bilaterally. There is no crusting or discharge. No bleeding. Mouth: Mucous membranes are moist. Tongue is midline. Uvula is midline. Posterior oropharynx is easily visualized. NECK: Supple and nontender. No lymphadenopathy. NEUROLOGIC: Normal [id number] test bilaterally. She has 5/5 muscle strength in the upper and lower extremities. RESPIRATORY: Breathing is non-labored. IMAGING DATA: Head CT. LABORATORY DATA: WBC is 5.5, hemoglobin is 10.8, hematocrit is 34.5, and platelets are 322. Sodium is 141, potassium is 3.7, creatinine is 1.3, and BUN is 13. MEDICATIONS: 1. Amlodipine. 2. Bupropion. 3. Clonazepam. 4. Lamotrigine. 5. Meclizine. 6. Methylphenidate. 7. Olanzapine. 8. Potassium chloride. 9. Spironolactone. 10. Venlafaxine. IMPRESSION: 1. No acute intracranial hemorrhage or acute territorial type infarct. 2. There are scattered foci hypodensity within the cerebral white matter likely representing small vessel ischemic disease in the patient of this age. 3. Mild atrophy. ASSESSMENT AND PLAN: This is a 72-year-old female with history of bipolar disorder, hypertension, hyperlipidemia, who presents with vertiginous symptoms of 4 days duration that is positional, [place]-Hallpike is positive to the left. Marianela maneuver completed at bedside. 1. The patient had positive Ramses-Hallpike and Marianela maneuver was completed at bedside. The patient instructed to keep head elevated for 48 hours and to walk only with assistance and using her walker. 2. Meclizine is not needed at this time. 3. The patient will need to followup for audiogram in the office and may possibly benefit from vestibular rehab if Marianela maneuver is not successful. 4. The patient is clear from an ENT standpoint for discharge. Thank you for allowing us to participate in the care of the patient. Shakir Mercer DO
== END 2017-05-06 13:31 | DRG 641 ==
LOC: ED 14:25 → OBSVTOIN 22:30 → ERH 22:30 → INTOOBSV 22:30 → ERH 05-04 00:25 → 3RNO 05-04 01:38 → OBSVTOIN 05-04 15:37
PROVIDERS: ADMIT Internal Medicine; ATTEND Internal Medicine
DX: E87.6 Hypokalemia (principal); E86.0 Dehydration; F31.60 Bipolar disorder, current episode mixed, unspecified; N11.9 Chronic tubulo-interstitial nephritis, unspecified; T43.595A Adverse effect of other antipsychotics and neuroleptics, initial encounter; I12.9 Hypertensive chronic kidney disease with stage 1 through stage 4 chronic kidney disease, or unspecified chronic kidney disease; N18.3 Chronic kidney disease, stage 3 (moderate); I70.1 Atherosclerosis of renal artery; R31.9 Hematuria, unspecified; I27.20 Pulmonary hypertension, unspecified; E78.00 Pure hypercholesterolemia, unspecified; M17.0 Bilateral primary osteoarthritis of knee; E78.5 Hyperlipidemia, unspecified; M81.0 Age-related osteoporosis without current pathological fracture; G47.30 Sleep apnea, unspecified; G31.84 Mild cognitive impairment of uncertain or unknown etiology; Z96.643 Presence of artificial hip joint, bilateral; R55 Syncope and collapse; Z87.891 Personal history of nicotine dependence

== ENCOUNTER 2017-05-06 13:35 | Inpatient (IN) | payer OTHER, BC ==
--- NOTE | 2017-05-06 15:29 | CP.PCM.CON ---
<Jacob Virk - Last Filed: 05/06/17 16:30> History of Present Illness - History of Present Illness History of Present Illness: Neurology consult note for Dr. Baker's service - Maciel Virk PGY2 Reason for consult: lightheadedness HPI: Patient is a 72 year-old female with past medical history of bipolar disorder, hyperlipidemia, hypertension, chronic kidney disease, prior psychiatric hospitalizations that originally presented to [facility] with complaints of lightheadedness. Patient reported that she had felt lightheaded yesterday which she reportedly had not experienced previously and decided to call her PMD, Dr. Castanon. Patient reported speaking to Dr. Castanon who recommended that she get some rest, drink plenty of fluids and make up an appointment with a neurologist. She reports that she went to rest and when she went to lay on her left side she began to experience dizziness and felt worsening of her symptoms. Patient subsequently decided to call EMS for further evaluation. Presently, she was discharged to the transitional care unit for physical therapy for deconditioning. She denied chest pain, palpitations, SOB, abdominal pain, nausea, vomiting, fever, chills, cough, focal weakness, numbness , tingling. 12point ROS as per HPI above otherwise negative PMH: as stated above PSH: left hip replacement (2013), right hip replacement (2017) Allergies: NKDA Social Hx: Denies alcohol and illicit drug use; Has a daughter and grandson Family Hx: non-contributory Past Patient History - Infectious Disease Hx of Infectious Diseases: None - Tetanus Immunizations Tetanus Immunization: Unknown - Past Social History Smoking Status: Former Smoker - CARDIAC Hx Cardiac Disorders: Yes Hx Hypertension: Yes - PULMONARY Hx Respiratory Disorders: Yes (USED TO SMOKE CIGARETTES < PPD) - NEUROLOGICAL HX Cerebrovascular Accident: No - HEENT Hx HEENT Problems: No - RENAL Hx Chronic Kidney Disease: Yes (3) - ENDOCRINE/METABOLIC Hx Endocrine Disorders: No - HEMATOLOGICAL/ONCOLOGICAL Hx Blood Disorders: No Hx Cancer: No - INTEGUMENTARY Hx Dermatological Problems: No - MUSCULOSKELETAL/RHEUMATOLOGICAL Hx Falls: No - GASTROINTESTINAL Hx Gastrointestinal Disorders: No - GENITOURINARY/GYNECOLOGICAL Hx Genitourinary Disorders: No Hx Sexually Transmitted Disorders: No - PSYCHIATRIC Hx Psychophysiologic Disorder: Yes Hx Bipolar Disorder: Yes - SURGICAL HISTORY Hx Orthopedic Surgery: Yes (left hip and right hip) - ANESTHESIA Hx Anesthesia: Yes Hx Anesthesia Reactions: No Meds Allergies/Adverse Reactions: Allergies Allergy/AdvReac Type Severity Reaction Status Date / Time No Known Allergies Allergy Verified 05/06/17 14:46 - Medications Medications: Current Medications Amlodipine Besylate (Norvasc) 10 mg PO DAILY NIKI PRN Reason: Protocol Atorvastatin Calcium (Lipitor) 10 mg PO DIN NIKI PRN Reason: Protocol Bupropion HCl (Wellbutrin) 200 mg PO 1000 NIKI PRN Reason: Protocol Clonazepam (Klonopin) 0.5 mg PO 1400 NIKI PRN Reason: Protocol Clonazepam (Klonopin) 1.5 mg PO HS NIKI PRN Reason: Protocol Lamotrigine (Lamictal) 150 mg PO BID NIKI PRN Reason: Protocol Meclizine HCl (Antivert) 12.5 mg PO TID PRN; Protocol PRN Reason: Dizziness Methylphenidate HCl (Ritalin) 5 mg PO 0800,1400 NIKI PRN Reason: Protocol Olanzapine (Zyprexa) 2.5 mg PO 1400 NIKI PRN Reason: Protocol Potassium Chloride (Klor-Con 10) 10 meq PO 0800 NIKI PRN Reason: Protocol Spironolactone (Aldactone) 25 mg PO BID NIKI PRN Reason: Protocol Venlafaxine HCl (Effexor Xr) 75 mg PO DAILY NIKI PRN Reason: Protocol Physical Exam - Constitutional Appears: Non-toxic, No Acute Distress - Head Exam Head Exam: ATRAUMATIC, NORMAL INSPECTION, NORMOCEPHALIC - Eye Exam Eye Exam: EOMI, PERRL - ENT Exam ENT Exam: Mucous Membranes Moist - Neck Exam Neck exam: Positive for: Normal Inspection - Respiratory Exam Respiratory Exam: Clear to Auscultation Bilateral. absent: Rales, Rhonchi, Wheezes - Cardiovascular Exam Cardiovascular Exam: RRR, +S1, +S2. absent: Gallop, JVD, Rubs, Systolic Murmur - GI/Abdominal Exam GI & Abdominal Exam: Soft. absent: Distended, Firm, Guarding, Rebound, Tenderness - Extremities Exam Extremities exam: Positive for: normal inspection - Neurological Exam Neurological exam: Alert, CN II-XII Intact, Oriented x3 Additional comments: alert, awake, oriented x3 EOMI PERRL CN2-12 grossly intact motor function grossly intact bilaterally sensory intact throughout no drift proprioception intact babinski downward going bilaterally - Psychiatric Exam Psychiatric exam: Normal Affect, Normal Mood - Skin Skin Exam: Dry, Intact, Normal Color, Warm Assessment & Plan - Assessment and Plan (Free Text) Plan: 72yo female with history of bipolar disorder, hyperlipidemia, hypertension, chronic kidney disease, prior psychiatric hospitalizations presents to [facility] with complaints of lightheaded and dizziness. 1. Dizziness/Lightheadedness 2. Bipolar disorder 3. Hyperlipidemia 4. Hypertension 5. Chronic kidney disease -Continue with physical therapy treatments for physical strengthening -Follow up with psychiatry recommendations regarding current psychiatric medications -Monitor and correct electrolytes abnormalities as indicated -Maintain systolic blood pressure between 120-130 -CT Head reviewed; revealed no acute intracranial abnormalities -CXR reviewed; no acute findings -EKG reviewed; normal sinus rhythm at 78bpm with nonspecific T wave abnormality -Follow up with neurology as an outpatient for EMG/nerve conduction studies Patient seen and case discussed/reviewed with attending, Dr. Baker - Date & Time Date: 05/06/17 Time: 15:27 <Gustavo Baker - Last Filed: 05/07/17 10:10> Meds - Medications Medications: Current Medications Amlodipine Besylate (Norvasc) 10 mg PO DAILY NIKI PRN Reason: Protocol Atorvastatin Calcium (Lipitor) 10 mg PO DIN NIKI PRN Reason: Protocol Last Admin: 05/06/17 18:03 Dose: 10 mg Bupropion HCl (Wellbutrin) 200 mg PO 1000 NIKI PRN Reason: Protocol Clonazepam (Klonopin) 0.5 mg PO 1400 NIKI PRN Reason: Protocol Clonazepam (Klonopin) 1.5 mg PO HS NIKI PRN Reason: Protocol Last Admin: 05/06/17 22:35 Dose: 1.5 mg Lamotrigine (Lamictal) 150 mg PO BID NIKI PRN Reason: Protocol Last Admin: 05/06/17 18:01 Dose: 150 mg Meclizine HCl (Antivert) 12.5 mg PO TID PRN; Protocol PRN Reason: Dizziness Last Admin: 05/07/17 08:38 Dose: 12.5 mg Methylphenidate HCl (Ritalin) 5 mg PO 0800,1400 NIKI PRN Reason: Protocol Last Admin: 05/07/17 08:38 Dose: 5 mg Olanzapine (Zyprexa) 2.5 mg PO 1400 NIKI PRN Reason: Protocol Potassium Chloride (Klor-Con 10) 10 meq PO 0800 NIKI PRN Reason: Protocol Last Admin: 05/07/17 08:23 Dose: 10 meq Spironolactone (Aldactone) 25 mg PO BID NIKI PRN Reason: Protocol Last Admin: 05/06/17 18:00 Dose: 25 mg Venlafaxine HCl (Effexor Xr) 75 mg PO DAILY NIKI PRN Reason: Protocol Results - Vital Signs Recent Vital Signs: Last Vital Signs Temp 97.7 F 05/07/17 06:00 Pulse 57 L 05/07/17 06:00 Resp 18 05/07/17 06:00 BP 136/72 05/07/17 06:00 Pulse Ox 96 05/07/17 06:00 - Labs Result Diagrams: 05/07/17 06:30 05/07/17 06:30 Labs: Laboratory Results - last 24 hr 05/07/17 05/07/17 06:30 06:30 WBC 5.5 RBC 3.94 Hgb 10.8 L Hct 34.5 L MCV 87.6 MCH 27.4 MCHC 31.3 RDW 16.7 H Plt Count 322 MPV 9.5 Gran % 60.4 Lymph % (Auto) 29.7 Andrews % (Auto) 6.9 H Eos % (Auto) 2.6 Baso % (Auto) 0.4 Gran # 3.31 Lymph # 1.6 Andrews # 0.4 Eos # 0.1 Baso # 0.02 Sodium 141 Potassium 3.7 Chloride 105 Carbon Dioxide 28 Anion Gap 12 BUN 13 Creatinine 1.3 H Est GFR ( Amer) 49 Est GFR (Non-Af Amer) 40 Random Glucose 95 Calcium 9.7 Total Bilirubin 0.5 AST 17 ALT 29 Alkaline Phosphatase 73 Total Protein 6.3 Albumin 3.7 Globulin 2.6 Albumin/Globulin Ratio 1.4 Attending/Attestation - Attestation I have personally seen and examined this patient.: Yes I have fully participated in the care of the patient.: Yes I have reviewed all pertinent clinical information: Yes
[2017-05-06] MEDS ORDERED: Influenza Vaccine 60 mcg/0.5 mL SYR (4YR UP) IM ONE (15:49)
--- NOTE | 2017-05-06 16:01 | CON ---
DATE: 05/06/2017 REASON FOR CONSULTATION: Chronic kidney disease, hypokalemia, dizziness. 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 She had a similar episode of hypokalemia and dizziness in 2014. 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 Has dehydration and prerenal state. The patient currently seen in the transitional care unit. She is transferred here for therapy. She is still sitting in chair. She complaints of mild dizziness. She is trying to ambulate. PAST MEDICAL AND SURGICAL HISTORY: Hypertension, osteoarthritis, bipolar disorder, chronic kidney disease, stage 2; bilateral hip replacements, hyperlipidemia. FAMILY HISTORY: CAD in father. SOCIAL HISTORY: No smoking, no alcohol use, no IV drug abuse. ALLERGIES: NO KNOWN DRUG ALLERGIES. MEDICATIONS: At present include spironolactone 25 b.i.d., meclizine 12.5 t.i.d., Effexor, Klonopin, potassium 20 mEq, Lamictal 150 b.i.d., Lipitor 10, amlodipine 10, Ritalin, bupropion, and olanzapine. REVIEW OF SYSTEMS: All systems are reviewed, pertinent positives as mentioned in history of presenting illness. PHYSICAL EXAMINATION: GENERAL: Elderly lady sitting in chair. VITAL SIGNS: Blood pressure 138/65, heart rate 64, respiratory rate 20, temperature 98.3. No orthostatic drop in blood pressure. NECK: Supple, no JVD. LUNGS: Bilateral equal air entry, no rales. CARDIAC: S1, S2, regular rate and rhythm, no murmur, no rub. ABDOMEN: Obese, distended, soft, nontender, bowel sounds present. EXTREMITIES: No lower extremity edema. INTAKE AND OUTPUT: Not charted. LABORATORY DATA: WBC 5.5, hemoglobin 10.4, hematocrit 33, platelets 293. Sodium 141, potassium 3.6, chloride 107, CO2 of 28, BUN 11, creatinine 1.3, glucose 104, calcium 9.3, phosphorus 3.0, magnesium 1.7, albumin 3.5. ASSESSMENT: 1. Hypokalemia, resolving. 2. Chronic kidney disease, stage 2, chronic tubular interstitial disease secondary to lithium. 3. Dehydration secondary to dizziness. 4. Hypertension. 5. Bipolar disorder. 6. Anxiety. PLAN: 1. Continue Aldactone 25 b.i.d. 2. Monitor the potassium closely. 3. Push p.o. fluids. 4. Continue amlodipine 10 mg daily. 5. Continue physical therapy. Swati Angeles MD
[2017-05-07 07:12] LABS: BASO # 0.02 K/mm3 (0.0-2.0); BASO % 0.4 % (0.0-3.0); EOS # 0.1 (0.0-0.7); EOS % 2.6 % (1.5-5.0); GRAN # 3.31 (1.4-6.5); GRAN % 60.4 % (50.0-68.0); HEMATOCRIT 34.5 % (36.0-48.0); LYMPH # 1.6 (1.2-3.4); LYMPH % 29.7 % (22.0-35.0); MEAN CELL VOLUME 87.6 fl (80.0-105.0); MEAN CORPUSCULAR HEMOGLOBIN 27.4 pg (25.0-35.0); MEAN CORPUSCULAR HGB CONC 31.3 g/dl (31.0-37.0); MEAN PLATELET VOLUME 9.5 fl (7.0-11.0); MONO # 0.4 (0.1-0.6); MONO % 6.9 % (1.0-6.0); RED CELL DISTRIBUTION WIDTH 16.7 % (11.5-14.5); WHITE BLOOD COUNT 5.5 10^3/ul (4.5-11.0)
[2017-05-07 07:35] LABS: ALB/GLOB RATIO 1.4 (1.1-1.8); BILIRUBIN,TOTAL 0.5 mg/dL (0.2-1.3); CALCIUM 9.7 mg/dL (8.4-10.5); POTASSIUM 3.7 mmol/L (3.6-5.0); TOTAL PROTEIN 6.3 g/dL (5.8-8.3)
[2017-05-07] MEDS ORDERED: Potassium Chloride 10 mEq ER Tab PO SCH (08:00)
[2017-05-07] MEDS: Venlafaxine 75 mg ER Cap PO SCH (10:45)
--- NOTE | 2017-05-07 19:04 | PN ---
DATE: 05/07/2017 SUBJECTIVE: The patient is seen sitting in bed. She is awake. She is alert. She denies any chest pain. She reports her dizziness is a little bit better. PHYSICAL EXAMINATION: GENERAL: Elderly lady sitting in bed. VITAL SIGNS: Blood pressure 135/79, heart rate 70, respiratory rate 16, and temperature 97.6. HEENT: Normocephalic and atraumatic. NECK: Supple. No JVD. LUNGS: Bilateral equal air entry. No rales. CARDIAC: S1 and S2, regular rate and rhythm. No murmur. No rub. ABDOMEN: Obese, distended, soft, and nontender. Bowel sounds present. EXTREMITIES: No lower extremity edema. INTAKE AND OUTPUT: Not charted. LABORATORY DATA: WBC 5.5, hemoglobin 10.8, hematocrit 35, and platelets 322. Sodium 141, potassium 3.7, chloride 105, CO2 of 28, BUN 13, creatinine 1.3, glucose 95, calcium 9.7, AST 17, ALT 29, and albumin 3.7. MEDICATIONS: Aldactone 25 b.i.d., Antivert, Effexor, Klonopin, potassium 10 mEq daily, Lamictal, Lipitor, amlodipine 10, Ritalin, bupropion, and Zyprexa. ASSESSMENT: 1. Hypokalemia, resolving. 2. Stable chronic kidney disease stage II/III. 3. Hypertension controlled. 4. Bipolar disorder. 5. Anxiety. PLAN: 1. Continue Aldactone 25 b.i.d. and amlodipine 10. 2. Push p.o. intake. 3. Physical therapy. 4. Continue psych medications. Swati Angeles MD
--- NOTE | 2017-05-08 00:41 | HP ---
CHIEF COMPLAINT: Lightheadedness, dizziness. HISTORY OF PRESENT ILLNESS: Ms. Ronnie Seo is a 72-year-old female with past medical history of multiple medical problems. She has psych problem of bipolar disorder, hypertension, chronic kidney disease, osteoporosis, osteoarthritis. She was actually admitted second time on the medical floor for headache and dizziness. According to her, she got medicine from Dr. Noe, Zyprexa and Aricept that gave her dizziness. I discontinued the Aricept, started her on Antivert and ENT consult followed. Patient improved a little bit and then transferred to PCU for the continuity of care for physical therapy and for ENT followup. Patient is very anxious, worrying about even small things, writing different questions, repeating questions, and getting physical therapy. PAST MEDICAL HISTORY: Hypertension, osteoarthritis, bipolar, chronic kidney disease stage II, bilateral hip replacement, hypercholesterolemia. FAMILY HISTORY: Coronary artery disease in the father. Mother, no medical problems. SOCIAL HISTORY: Never smoked. No drugs. No ethanol as per patient. ALLERGIES: THE PATIENT IS NOT ALLERGIC WITH ANY MEDICATIONS. HOME MEDICATIONS: Reviewed by me. REVIEW OF SYSTEMS: Patient is seen and examined on the bedside, looking anxious, asking many irrelevant questions, tried my best to answer. No nausea, vomiting, or diarrhea. No hematuria. No hematochezia. No chest pain. No palpitations. PHYSICAL EXAMINATION VITAL SIGNS: Temperature is 98, pulse is 90, blood pressure is 136/87, respiratory rate is 18. HEENT: Head is normocephalic, atraumatic. Eyes: PERRLA. Extraocular muscles intact. Conjunctivae clear. Nose patent. Mucous membranes moist. NECK: Supple. No carotid bruits, JVD, or thyromegaly. CHEST: Bilaterally symmetrical. HEART: S1 and S2 positive. LUNGS: Clear to auscultation. ABDOMEN: Soft. Bowel sounds present. No organomegaly. EXTREMITIES: No edema. No cyanosis. NEUROLOGIC: The patient is awake and alert. Moving all four extremities. No focal deficit. MEDICATIONS: Aldactone, Antivert, Effexor, Klonopin, Lamictal, Lipitor, Norvasc, Wellbutrin, Zyprexa. LABORATORY DATA: White blood cells 5.5, hemoglobin 10.8, hematocrit 34.5, platelets 322. Sodium 141, potassium 3.7, BUN 13, creatinine 1.3, AST 17, ALT 29. ASSESSMENT AND PLAN: Ms. Ronnie Seo is a 72 years old lady with anemia, has headache and lightheadedness and dizziness, hypokalemia resolved, stable chronic kidney disease stage II/III, hypertension very well controlled, bipolar disorder, Dr. Noe is on the case, anxiety. We will continue Aldactone and amlodipine and encourage p.o. intake, physical therapy, continue psych medications. Seen by Dr. Swati Angeles and Dr. Gustavo Baker, occupational therapist's assistant, history of hypercholesterolemia. Continue physical therapy for physical strengthening. CT of the head reviewed. Chest x-ray reviewed, no acute finding. EKG reviewed. According to neurology notes, waiting for ENT input. As per patient, ENT saw the patient, waiting for the documentation. GI and DVT prophylaxis, repeat labs. We will follow up. Irma Castanon MD MTDD
--- NOTE | 2017-05-08 05:26 | CON ---
PULMONARY CONSULT REFERRING PHYSICIAN: Irma Castanon MD REASON FOR CONSULTATION: May have sleep apnea syndrome, dizzy spell. HISTORY OF PRESENT ILLNESS. This is a 72-year-old female known to me from acute side of the hospital where he was admitted because of the dizzy spells which was recurrent. She has a multiple medical issue which include bipolar disorder, hyperlipidemia, hypertension, renal insufficiency, pulmonary hypertension. She was treated by readjustment of her medications, especially psych medications, feeling better, now transferred to [facility], seen by Neurology, seems like vestibular type of dizziness, presently sitting up in a chair. Family is at bedside. Admit to have snoring, daytime sleepy and tired. No nausea, no vomiting, diarrhea. No leg pain or leg swelling. PAST MEDICAL HISTORY: Bipolar disorder, hyperlipidemia, hypertension, renal insufficiency, pulmonary hypertension, may have sleep apnea syndrome, chronic lung disease. SOCIAL HISTORY: Positive history of smoking. Denies any alcohol use. ALLERGIES: NONE KNOWN. FAMILY HISTORY: No significant cardiopulmonary disease reported. MEDICATIONS: She is on Aldactone 25 mg twice a day, Antivert 12.5 mg three times a day p.r.n., Effexor 75 mg daily, Klonopin 1.5 mg at bedtime and 0.5 mg daily, potassium 10 mEq daily, Lamictal 150 mg twice a day, Lipitor 10 mg daily, Norvasc 10 mg daily, Ritalin 5 mg twice a day, Wellbutrin 200 mg daily, Zyprexa 2.5 mg daily. REVIEW OF SYSTEM: Presently, there is no headache, no rhinitis. Still get positional vertigo type symptoms. No chest pain. No nausea, no vomiting, no diarrhea. No leg pain or leg swelling. Admit to have daytime sleepiness, snoring at nighttime. PHYSICAL EXAMINATION: GENERAL: Sitting up in a side of the bed, in no acute distress. VITAL SIGNS: Temp is 98, heart rate is 90, respiratory rate is 18, blood pressure 136/87, pulse ox 99% on room air. HEENT: Moist mucous membrane. Crowded airway. Mallampati score is 4. NECK: Supple. No JVD. No facial tenderness. LUNGS: Has fair airflow with few rhonchi. HEART: S1 and S2. ABDOMEN: Soft, nontender. No organomegaly. EXTREMITIES: No edema. NEUROLOGIC: Awake, alert, follows simple commands. LABORATORY DATA: Shows hemoglobin 10.8, hematocrit 34.5, WBC 5.5, platelets 322. Sodium 141, potassium 3.7, chloride 105, bicarbonate 28, BUN 13, creatinine 1.3, glucose 142, calcium 9.7, AST 17, ALT 29, alk phos is 73, albumin is 3.7. IMPRESSION AND PLAN: Near syncope, mild pulmonary hypertension, may have a sleep apnea syndrome, chronic lung disease, renal insufficiency, bipolar disorder, hyperlipidemia, hypertension and vestibular type dizziness, seen by Neurology. From pulmonary point of view, doing okay. Keep head at 45 degrees. Psychiatry followup to readjust medication. Gastric prophylaxis, deep venous thrombosis prophylaxis, fall precaution. Continue therapy. We will schedule PFT and sleep study as an outpatient. Thank you and we will follow with you. Joy Richter MD
[2017-05-08 06:56] LABS: BASO # 0.01 K/mm3 (0.0-2.0); BASO % 0.2 % (0.0-3.0); EOS # 0.1 (0.0-0.7); EOS % 1.7 % (1.5-5.0); GRAN # 4.04 (1.4-6.5); GRAN % 61.3 % (50.0-68.0); LYMPH % 30.7 % (22.0-35.0); MEAN CELL VOLUME 87.7 fl (80.0-105.0); MEAN CORPUSCULAR HEMOGLOBIN 27.5 pg (25.0-35.0); MEAN CORPUSCULAR HGB CONC 31.4 g/dl (31.0-37.0); MEAN PLATELET VOLUME 9.3 fl (7.0-11.0); MONO # 0.4 (0.1-0.6); MONO % 6.1 % (1.0-6.0); RED CELL DISTRIBUTION WIDTH 16.9 % (11.5-14.5); WHITE BLOOD COUNT 6.6 10^3/ul (4.5-11.0)
[2017-05-08 06:59] LABS: CALCIUM 9.8 mg/dL (8.4-10.5); POTASSIUM 4.2 mmol/L (3.6-5.0)
[2017-05-08] MEDS: Venlafaxine 75 mg ER Cap PO SCH (09:06)
--- NOTE | 2017-05-08 16:49 | PN ---
DATE: 05/08/2017 SUBJECTIVE: The patient is seen sitting in chair. The patient is awake. She is alert. She is comfortable. She does not appear to be any kind of distress. PHYSICAL EXAMINATION: VITAL SIGNS: Blood pressure 138/82, heart rate 79, respiratory rate 18, temperature 97.6. HEENT: Normocephalic, atraumatic. NECK: Supple, no JVD. LUNGS: Bilateral equal air entry, no rales. EXTREMITIES: No lower extremity edema. INTAKE AND OUTPUT: Not charted. LABORATORY DATA: Sodium 140, potassium 4.2, chloride 102, CO2 of 30, BUN 16, creatinine 1.6, glucose 101, calcium 9.8. CURRENT MEDICATIONS: Aldactone 25 b.i.d., Antivert, Effexor, Klonopin, Lamictal, Lipitor, amlodipine 10, Ritalin, Wellbutrin, olanzapine. ASSESSMENT: 1. Resolved hypokalemia, discontinue potassium supplementation. 2. Hypertension, well controlled. Continue amlodipine and Aldactone 25 b.i.d. 3. Chronic tubular interstitial disease, chronic kidney disease, stage 3. 4. Schizophrenia. 5. Remote history of lithium use. PLAN: 1. Continue current management. 2. Discontinue potassium supplementation. 3. Continue physical therapy. Swati Angeles MD
--- NOTE | 2017-05-08 21:57 | PN ---
PULMONARY PROGRESS NOTE DATE: 05/08/2017 REFERRING PHYSICIAN: Irma Castanon MD SUBJECTIVE: She is sitting at the side of the bed. Feels better. Still has some dizzy feeling, but no headache. No rhinitis. No cough. No sputum production. No nausea, vomiting, or diarrhea. No leg pain or leg swelling. OBJECTIVE: GENERAL: In no acute distress. VITAL SIGNS: Temperature is 98, heart rate is 71, respiratory rate is 18, blood pressure is 123/71, and pulse oxymetry is 95% on room air. HEENT: Moist mucous membranes. Crowded airway. Mallampati score is 4. NECK: Supple. No JVD. LUNGS: Have fair airflow with few rhonchi. HEART: S1 and S2. ABDOMEN: Soft and nontender. No organomegaly. EXTREMITIES: There is no edema. NEUROLOGIC: Awake, alert, and follows simple commands. MEDICATIONS: She is on Aldactone 25 mg twice a day, Antivert 12.5 mg three times a day, p.r.n., Effexor XR 75 mg daily, Klonopin 1.5 mg at bedtime, also 0.5 mg daily, Lamictal 150 mg twice a day, Lipitor 10 mg daily, Norvasc 10 mg daily, Ritalin 5 mg twice a day, Wellbutrin 200 mg daily, and Zyprexa 2.5 mg daily. LABORATORY DATA: Shows hemoglobin of 11.6, hematocrit of 37.0, WBC 6.6, and platelet count is 322. Sodium 142, potassium 4.2, chloride 102, bicarbonate 30, BUN 16, and creatinine 1.6. Glucose 101 and calcium 9.8. IMPRESSION AND PLAN: Near syncope, mild pulmonary hypertension, may have sleep apnea syndrome, chronic lung disease, renal insufficiency, bipolar disorder, hyperlipidemia, and hypertension. Vestibular type dizziness, but also probably superimposed by her medication, which is sedative and antipsychotic. Pulmonary point of view, doing okay, will benefit from outpatient attended sleep study , so she will protect especially when she is sleeping with the sedatives. Gastric prophylaxis, fall precaution, and continue therapy. Thank you and we will follow with you. Joy Richter MD
--- NOTE | 2017-05-08 22:37 | CP.PCM.PN ---
<Diana Lara - Last Filed: 05/08/17 22:49> Subjective - Date & Time of Evaluation Date of Evaluation: 05/08/17 Time of Evaluation: 11:00 - Subjective Subjective: 72yr female with h/o hypokalemia, HTN, Chronic tubular interstitial disease, CKD stage 3, hyperlipidemia, Osteoarthritis, b/l hip replacement, Bipolar disease. She is sitting OOB to chair w/o any distress noted. She reports relief of dizziness after use of antivert and manueuvers that were done at bedside by Dr. Mercer's ENT residents. They provided her with appt for Apr. Denies any fever, chills, nausea, vomiting, abdominal pain, urinary symptoms, or any other complaints. Objective - Vital Signs/Intake and Output Vital Signs (last 24 hours): Temp Pulse Resp BP Pulse Ox 98.6 F 71 18 123/71 95 05/08/17 16:42 05/08/17 16:42 05/08/17 16:42 05/08/17 16:42 05/08/17 16:42 - Medications Medications: Current Medications Amlodipine Besylate (Norvasc) 10 mg PO DAILY NIKI PRN Reason: Protocol Last Admin: 05/08/17 09:09 Dose: 10 mg Atorvastatin Calcium (Lipitor) 10 mg PO DIN NIKI PRN Reason: Protocol Last Admin: 05/08/17 18:03 Dose: 10 mg Bupropion HCl (Wellbutrin) 200 mg PO DAILY NIKI Clonazepam (Klonopin) 0.5 mg PO 1400 NIKI PRN Reason: Protocol Last Admin: 05/08/17 15:03 Dose: 0.5 mg Clonazepam (Klonopin) 1.5 mg PO HS NIKI PRN Reason: Protocol Last Admin: 05/07/17 21:40 Dose: 1.5 mg Lamotrigine (Lamictal) 150 mg PO BID NIKI PRN Reason: Protocol Last Admin: 05/08/17 18:03 Dose: 150 mg Meclizine HCl (Antivert) 12.5 mg PO TID PRN; Protocol PRN Reason: Dizziness Last Admin: 05/08/17 09:17 Dose: 12.5 mg Methylphenidate HCl (Ritalin) 5 mg PO 0800,1400 NIKI PRN Reason: Protocol Last Admin: 05/08/17 15:03 Dose: 5 mg Olanzapine (Zyprexa) 2.5 mg PO 1400 NIKI PRN Reason: Protocol Last Admin: 05/08/17 15:04 Dose: 2.5 mg Spironolactone (Aldactone) 25 mg PO BID NIKI PRN Reason: Protocol Last Admin: 05/08/17 18:01 Dose: 25 mg Venlafaxine HCl (Effexor Xr) 75 mg PO DAILY NIKI PRN Reason: Protocol Last Admin: 05/08/17 09:06 Dose: 75 mg - Labs Labs: 05/08/17 06:30 05/08/17 06:30 - Constitutional Appears: Well, No Acute Distress - Head Exam Head Exam: NORMOCEPHALIC - Eye Exam Eye Exam: Normal appearance - ENT Exam ENT Exam: Mucous Membranes Moist - Neck Exam Neck Exam: Full ROM - Respiratory Exam Respiratory Exam: Clear to Ausculation Bilateral, NORMAL BREATHING PATTERN - Cardiovascular Exam Cardiovascular Exam: +S1, +S2 - GI/Abdominal Exam GI & Abdominal Exam: Soft, Normal Bowel Sounds - Extremities Exam Extremities Exam: Pedal Edema - Neurological Exam Neurological Exam: Alert, Awake, Oriented x3 - Psychiatric Exam Psychiatric exam: Anxious - Skin Skin Exam: Dry, Intact, Normal Color Assessment and Plan (1) Hypokalemia Status: Acute (2) Dizziness Status: Acute (3) BPPV (benign paroxysmal positional vertigo) Status: Acute (4) Bipolar disorder Status: Chronic (5) Anxiety Status: Chronic (6) Chronic kidney disease (CKD) Status: Chronic - Assessment and Plan (Free Text) Plan: Pt is improving. Continue physical therapy. Dr. Angeles - hypokalemia resolving. continue aldactone and amlodpine, push po intake, & PT. Dr. Mercer - progress notes pending, appt. 05/13/[address] Richter - recommends outpt sleep study. Dr. Baker - recommends outpt EMG/nerve conduction study and psych to prescribe psych meds. Reviewed: CT head WNL CXR WNL ECG (+) NSR, T wave abnormality <Irma Castanon - Last Filed: 05/09/17 10:27> Objective - Vital Signs/Intake and Output Vital Signs (last 24 hours): Temp Pulse Resp BP Pulse Ox 98.7 F 61 16 129/77 96 05/09/17 06:00 05/09/17 06:00 05/09/17 06:00 05/09/17 06:00 05/09/17 06:00 - Medications Medications: Current Medications Amlodipine Besylate (Norvasc) 10 mg PO DAILY NIKI PRN Reason: Protocol Last Admin: 05/08/17 09:09 Dose: 10 mg Atorvastatin Calcium (Lipitor) 10 mg PO DIN NIKI PRN Reason: Protocol Last Admin: 05/08/17 18:03 Dose: 10 mg Bupropion HCl (Wellbutrin) 200 mg PO DAILY NIKI Clonazepam (Klonopin) 0.5 mg PO 1400 NIKI PRN Reason: Protocol Last Admin: 05/08/17 15:03 Dose: 0.5 mg Clonazepam (Klonopin) 1.5 mg PO HS NIKI PRN Reason: Protocol Last Admin: 05/08/17 22:51 Dose: 1.5 mg Lamotrigine (Lamictal) 150 mg PO BID NIKI PRN Reason: Protocol Last Admin: 05/08/17 18:03 Dose: 150 mg Meclizine HCl (Antivert) 12.5 mg PO TID PRN; Protocol PRN Reason: Dizziness Last Admin: 05/08/17 09:17 Dose: 12.5 mg Methylphenidate HCl (Ritalin) 5 mg PO 0800,1400 NIKI PRN Reason: Protocol Last Admin: 05/09/17 09:08 Dose: 5 mg Olanzapine (Zyprexa) 2.5 mg PO 1400 NIKI PRN Reason: Protocol Last Admin: 05/08/17 15:04 Dose: 2.5 mg Spironolactone (Aldactone) 25 mg PO BID NIKI PRN Reason: Protocol Last Admin: 05/08/17 18:01 Dose: 25 mg Venlafaxine HCl (Effexor Xr) 75 mg PO DAILY NIKI PRN Reason: Protocol Last Admin: 05/08/17 09:06 Dose: 75 mg - Labs Labs: 05/09/17 07:00 05/08/17 06:30 Assessment and Plan - Assessment and Plan (Free Text) Plan: pt is s/e at bed side , looking comfortable ,no new complaints , agreed all above , cont. aldactone . k, amlodipine psy . nephro , ent is on the case , will repeat lab , will f/u , cont. pt
--- NOTE | 2017-05-08 23:41 | CON ---
DATE: HISTORY OF PRESENT ILLNESS: The patient is a 72-year-old female, currently being treated on the Transitional Care Unit for gait dysfunction. She was originally admitted to the medical surgical floor for severe hypokalemia and dizziness. I reviewed multiple consultants reports. The patient is well known to me. I followed her in my office for bipolar disorder and mild cognitive impairment. She is on multiple psychotropic medicines. She currently is able to carry on coherent conversation. She has no current complaints except for some excessive worry about her general health and her future. PAST MEDICAL HISTORY: Includes stage III chronic kidney disease. She has hyperlipidemia, history of hypertension. The patient has also a history of mild cognitive impairment. She has had bipolar disorder for many years. No alcohol or substance abuse. PERSONAL HISTORY: As follows: She lives with her family in a multi-family home. She is a . She has a daughter. She has a grandson. PSYCHIATRIC PROBLEMS: No history of alcohol abuse or substance abuse. CURRENT MEDICATIONS: Include Aldactone, Antivert p.r.n., Effexor 75 mg daily, clonazepam 0.5 mg daily and 1.5 mg at bedtime, Lamictal 150 mg in a.m. and at bedtime, Lipitor 10 mg at dinner, Norvasc 10 mg daily, and Ritalin 5 mg in a.m. and afternoon. She is also receiving Wellbutrin 200 mg in a.m. The patient also receives Zyprexa 2.5 mg in the afternoon. She is having no adverse effect from psychotropic medications. REVIEW OF SYSTEMS: She currently has a slight dizziness, otherwise a 12-point review is noncontributory. PHYSICAL EXAMINATION VITAL SIGNS: Blood pressure 138/82, pulse 79, afebrile, and respirations 18 per minute. PSYCHIATRICALLY: Her mental status; she is awake, alert, coherent, recognizes me. She has mild impairment of recent and intermediate memory. She worries a great deal about her general health and different things bothering her. Now focused more on her dizziness. The patient is cooperating with Physical Therapy. No suicidal ideation. No psychotic symptoms currently. LABORATORY DATA: The patient's current laboratory data, white count is 6600, hemoglobin 11.6, and platelet count 342,000. Metabolic profile is normal except for creatinine of 1.6, BUN of 16, estimated GFR 32. IMPRESSION: The patient has a history of bipolar disorder, mixed type. She is on multiple psychotropic medications for which is having no adverse effects. She has a history of chronic kidney disease, stage III, which is originally obtained from many years ago having been on lithium. The patient has prior history of hyperlipidemia, hypertension, recent hypokalemia, gait dysfunction, and history of total hip replacement. PLAN: I will review psychotropic medicines. From my point of view, clear for discharge and we will follow her as an outpatient. Jayden Noe MD MTDD
[2017-05-09 07:54] LABS: BASO # 0.01 K/mm3 (0.0-2.0); BASO % 0.2 % (0.0-3.0); EOS # 0.1 (0.0-0.7); EOS % 2.4 % (1.5-5.0); GRAN # 3.36 (1.4-6.5); GRAN % 62.1 % (50.0-68.0); HEMATOCRIT 33.8 % (36.0-48.0); LYMPH # 1.5 (1.2-3.4); LYMPH % 27.9 % (22.0-35.0); MEAN CELL VOLUME 87.3 fl (80.0-105.0); MEAN CORPUSCULAR HEMOGLOBIN 27.1 pg (25.0-35.0); MEAN CORPUSCULAR HGB CONC 31.1 g/dl (31.0-37.0); MEAN PLATELET VOLUME 9.2 fl (7.0-11.0); MONO # 0.4 (0.1-0.6); MONO % 7.4 % (1.0-6.0); RED CELL DISTRIBUTION WIDTH 16.7 % (11.5-14.5); WHITE BLOOD COUNT 5.4 10^3/ul (4.5-11.0)
--- NOTE | 2017-05-09 08:25 | PN ---
SUBJECTIVE: The patient is currently seen in the TCU. She is waking up. She appears to be in no distress. She is not complaining of any lightheadedness or dizziness. MEDICATIONS: Medication list reviewed. The patient is currently on spirolactone, Antivert, Effexor, Klonopin, Lamictal, Lipitor, Norvasc, Ritalin, Wellbutrin, and Zyprexa. OBJECTIVE: VITAL SIGNS: Blood pressure 129/77, temperature 98.7, respiratory rate 16 with a pulse of 61. Pulse ox is 96%. HEENT EXAM: Normocephalic, atraumatic. Conjunctivae are pink. Sclerae nonicteric. NECK: Supple. No neck vein distention. CHEST: Clear to auscultation and percussion. No rales. No rhonchi or wheezing. CARDIOVASCULAR: Shows irregular rate and rhythm with AI/MR/TR. No S3. No S4. No rub. ABDOMEN: Soft. Bowel sounds normal. No rebound or guarding or masses. EXTREMITIES: Show no cyanosis, clubbing or edema. LABORATORY DATA AND IMAGING STUDIES: Laboratory work from yesterday; CBC, white blood cell count 5.4, hemoglobin 10.5 with a platelet count of 303,000. Chemistry showed normal electrolytes. Potassium 4.2, sodium 140, BUN 16 with a creatinine of 1.6, slightly above her baseline range of 1.3 to 1.4. Glucose is 101. Calcium is 9.8. ASSESSMENT: 1. Status post episode of dizziness and lightheadedness, treated with Antivert on a p.r.n. basis. No significant neurological findings were found. 2. History of chronic kidney disease, stage 3 with no significant proteinuria; 24-hour urines done previous admission showed a creatinine clearance of 31 mL per minute with a 126 mg of protein in urine. 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 3. History of hypertension. Blood pressure is controlled on present medication. No change in current medications. She may continue using calcium channel héctor therapy along with Aldactone. 4. Status post mild hypokalemia. This has resolved. The patient had been on potassium, and currently, she is on spirolactone. 5. History of bipolar disorder, on medication as per Dr. Noe. 6. History of osteoporosis, currently stable. 7. History of hyperlipidemia. The patient remains on statin therapy along with low cholesterol, low-fat diet. 8. History of mild valvular heart disease, stable. PLAN: 1. Continue rehabilitation in the TCU. 2. Continue p.r.n. use of Antivert. 3. Adjustment of medications as per Dr. Noe. 4. From Renal standpoint, the patient may stay on present blood pressure medication and low-dose Aldactone therapy. 5. We will check her labs early next week. Linden Olson MD
[2017-05-09] MEDS: Venlafaxine 75 mg ER Cap PO SCH (10:30)
--- NOTE | 2017-05-09 18:27 | PN ---
PULMONARY PROGRESS NOTE DATE: 05/09/2017 REFERRING PHYSICIAN: Irma Castanon MD SUBJECTIVE: She is sitting in the chair, therapist is at the bedside, getting ready for walk, and night was unremarkable. Her dizziness is better. No chest pain. No nausea. No vomiting. No diarrhea. No leg pain or leg swelling. PHYSICAL EXAMINATION: GENERAL: In no acute distress. VITAL SIGNS: Temperature is 98, heart rate 60, respiratory rate 16, blood pressure 129/77, and pulse ox 96% on room air. HEENT: Moist mucous membranes. Crowded airway. NECK: Supple. No JVD. HEART: S1 and S2. LUNGS: Has a fair airflow with few rhonchi. ABDOMEN: Soft and nontender. No organomegaly. EXTREMITIES: There is no edema. NEUROLOGIC: Awake, alert, and follow simple commands. MEDICATIONS: She is on Aldactone 25 mg twice a day, Antivert 12.5 mg 3 times a day p.r.n., Effexor 75 mg daily, clonazepam 1.5 mg at bedtime and 0.5 mg p.o. daily, Lamictal 150 mg twice a day, Lipitor 10 mg daily, Norvasc 10 mg daily, Ritalin 5 mg twice a day, Wellbutrin 200 mg daily, and Zyprexa 2.5 mg daily. LABORATORY DATA: Shows hemoglobin 10.5, hematocrit 33.3, WBC 5.4, and platelet 303. Sodium 140 and potassium 4.2 yesterday. IMPRESSION AND PLAN: Status post near syncope, pulmonary hypertension, may have sleep apnea syndrome, chronic lung disease, renal insufficiency, bipolar disorder, hyperlipidemia, hypertension, may have vestibular dizziness, spoke to therapist, continue therapy, fall precaution, bronchodilator, keep head at 45 degrees, sleep apnea precaution, careful with sedation, Psychiatry followup, outpatient sleep study, and fall precaution. Thank you and we will follow with you. Joy Richter MD
[2017-05-10 07:13] LABS: BASO # 0.02 K/mm3 (0.0-2.0); BASO % 0.4 % (0.0-3.0); EOS # 0.1 (0.0-0.7); EOS % 2.2 % (1.5-5.0); GRAN # 2.98 (1.4-6.5); GRAN % 59.6 % (50.0-68.0); LYMPH # 1.5 (1.2-3.4); LYMPH % 30.2 % (22.0-35.0); MEAN CELL VOLUME 87.3 fl (80.0-105.0); MEAN CORPUSCULAR HEMOGLOBIN 28.3 pg (25.0-35.0); MEAN CORPUSCULAR HGB CONC 32.4 g/dl (31.0-37.0); MONO # 0.4 (0.1-0.6); MONO % 7.6 % (1.0-6.0); RED CELL DISTRIBUTION WIDTH 16.6 % (11.5-14.5)
[2017-05-10] MEDS: Venlafaxine 75 mg ER Cap PO SCH (09:00)
--- NOTE | 2017-05-10 13:57 | PN ---
DATE: SUBJECTIVE: The patient is once again seen in the TCU. She is sitting in her chair. She is in no acute distress. She is not complaining of any lightheadedness or dizziness. MEDICATIONS: Medication list reviewed. The patient is on Aldactone, Antivert, Effexor,, Klonopin, Lamictal, Lipitor, Norvasc, Ritalin, Wellbutrin and Zyprexa. OBJECTIVE: VITAL SIGNS: Blood pressure is 120/63, temperature 97.5, respiratory rate is 16 with a pulse of 56. HEENT: Exam shows her to be normocephalic, atraumatic. Conjunctivae are pink. Sclerae are nonicteric. NECK: Supple. No neck vein distention. CHEST: Clear to auscultation and percussion. No rales, rhonchi or wheezing. CARDIOVASCULAR: Shows a regular rate and rhythm with AI/MR/TR. No S3. No S4. No rub. ABDOMEN: Soft. Bowel sounds normal. No rebound, no guarding or masses. EXTREMITIES: Show no cyanosis, clubbing or edema. LABORATORY DATA AND IMAGING: CBC from today, white blood cell count 5.0, hemoglobin stable at 10.7, platelet count is 289,000. Chemistries from 05/08 showed a creatinine of 1.6. Repeat chemistries are scheduled for tomorrow. ASSESSMENT: 1. Status post episode of dizziness and lightheadedness. The patient is using Antivert on a p.r.n. basis. The last 24 hours, she has had no episodes of dizziness or lightheadedness and she had no significant neurological findings in acute care. 2. History of chronic kidney disease stage III. Creatinine bounces between baseline in the low to mid one range. The patient is felt to have possible chronic tubular interstitial nephritis secondary to use of lithium in the past. A 24-hour urines done previous admission showed a creatinine clearance of 31 mL per minute with 126 mg of protein in the urine. 3. History of hypertension. Blood pressure control is excellent on current medication. She may continue calcium channel héctor therapy along with Aldactone. 4. Status post mild hypokalemia. This has resolved. Repeat chemistries will be done tomorrow. The patient had been on potassium supplements and she is currently on Aldactone. 5. History of bipolar disorder, medications as per Dr. Noe. 6. History of osteoporosis, stable. 7. History of hyperlipidemia, stable. The patient will continue statin therapy and low cholesterol diet. 8. History of mild valvular heart disease, stable. PLAN: 1. Continue rehabilitation in the TCU. The patient states that she would like to go home before Thanksgiving. 2. Continue p.r.n. use of Antivert. 3. Follow up with psychiatry. 4. Repeat chemistries tomorrow. Linden Olson MD MTDD
--- NOTE | 2017-05-10 22:47 | PN ---
DATE: 05/10/2017 PULMONARY PROGRESS NOTE REFERRING PHYSICIAN: Dr. Castanon. SUBJECTIVE: The patient is out of bed to chair. Night was unremarkable. Doing well in therapy. No dizzy spell or vertigo reported today. Denies any lightheadedness today. Got short of breath with exertion. No nausea. No vomiting. No diarrhea. No leg pain or leg swelling. OBJECTIVE: GENERAL: In no acute distress. VITAL SIGNS: Temperature is 98, heart rate is 78, respiratory rate is 14, blood pressure 137/68, pulse ox 100% on room air. HEENT: Moist mucous membrane. Crowded airway. NECK: Supple. No JVD. LUNGS: Has fair airflow with few rhonchi. HEART: S1 and S2. ABDOMEN: Soft, nontender. No organomegaly. EXTREMITIES: No edema. NEUROLOGIC: Awake, alert. Follow simple commands. LABORATORY DATA: Shows hemoglobin 10.7, hematocrit 33.0, WBC 5.0, platelets is 289. Sodium 140 that was on 05/08/2017. MEDICATIONS: She is on Aldactone 25 mg twice a day, Antivert 12.5 mg three time a day p.r.n., Effexor 75 mg daily, Klonopin 1.5 mg at bedtime, Klonopin also 0.5 mg daily, Lamictal 150 mg twice a day, Lipitor 10 mg daily, Norvasc 10 mg daily, Ritalin 5 mg twice a day, Wellbutrin 200 mg daily, and Zyprexa 2.5 mg daily. IMPRESSION AND PLAN: Status post near syncope, pulmonary hypertension, may have sleep apnea syndrome, chronic obstructive lung disease, renal insufficiency, bipolar disorder, hyperlipidemia, hypertension, vestibular-type dizziness, vertigo. Clinically, she is much better today. Sleep apnea precaution. Keep head at 45 degrees. Careful with sedation. Psychiatry followup. Outpatient sleep study. Thank you, and we will follow with you. Joy Richter MD
--- NOTE | 2017-05-11 01:27 | PN ---
DATE: SUBJECTIVE: The patient is a 72-year-old female. The patient was seen and examined on the bedside. Looking comfortable. No nausea, vomiting, or diarrhea. No hematuria or hematochezia. No swelling of the legs. No chest pain. No palpitations. No headache or dizziness. Dizziness has gone. The patient sitting on the chair, not in acute distress, and not complaining about any lightheadedness. PHYSICAL EXAMINATION: VITAL SIGNS: Blood pressure 120/63, temperature 97.5, respiratory rate 16, and pulse 56. HEENT: Head is normocephalic and atraumatic. Eyes; PERRLA. Extraocular muscles intact. Conjunctivae are clear. Nose is patent. Mucous membranes are moist. NECK: Supple. No carotid bruits. No JVD or thyromegaly. CHEST: Bilaterally symmetrical. HEART: S1 and S2 positive. LUNGS: Clear to auscultation. ABDOMEN: Soft. Bowel sounds positive. No organomegaly. EXTREMITIES: No edema. No cyanosis. NEUROLOGIC: The patient is awake and alert. Moving all 4 extremities. No focal deficit. LABORATORY DATA: White blood cell 5.0, hemoglobin 10.7, and platelets 289,000. Need to repeat electrolytes. MEDICATIONS: Aldactone, Antivert, Effexor, Klonopin, Lamictal, Lipitor, Norvasc, Ritalin, Wellbutrin, and Zyprexa. ASSESSMENT AND PLAN: Ms. Gabbi Trujillo is a 72-year-old lady with multiple medical problems, bipolar, status post near syncope, pulmonary hypertension, sleep apnea syndrome, chronic lung disease, renal insufficiency, hypercholesterolemia, hypertension, electrolyte imbalance, and vestibular dizziness. Got procedure from ENT, improved. Fall precautions. After procedure, she is feeling better. Psychiatrist is on the case. Physical therapy, repeat labs, and we will follow up. Irma Castanon MD MTDDeangelo
[2017-05-11 06:17] LABS: BASO # 0.02 K/mm3 (0.0-2.0); BASO % 0.3 % (0.0-3.0); EOS # 0.1 (0.0-0.7); EOS % 2.4 % (1.5-5.0); GRAN # 3.66 (1.4-6.5); GRAN % 62.4 % (50.0-68.0); HEMATOCRIT 35.4 % (36.0-48.0); LYMPH # 1.6 (1.2-3.4); LYMPH % 26.7 % (22.0-35.0); MEAN CELL VOLUME 87.6 fl (80.0-105.0); MEAN CORPUSCULAR HEMOGLOBIN 27.7 pg (25.0-35.0); MEAN CORPUSCULAR HGB CONC 31.6 g/dl (31.0-37.0); MEAN PLATELET VOLUME 9.4 fl (7.0-11.0); MONO # 0.5 (0.1-0.6); MONO % 8.2 % (1.0-6.0); RED CELL DISTRIBUTION WIDTH 16.7 % (11.5-14.5); WHITE BLOOD COUNT 5.9 10^3/ul (4.5-11.0)
[2017-05-11 06:58] LABS: ALB/GLOB RATIO 1.4 (1.1-1.8); BILIRUBIN,TOTAL 0.5 mg/dL (0.2-1.3); CALCIUM 9.6 mg/dL (8.4-10.5); PHOSPHOROUS 3.9 mg/dL (2.5-4.5); POTASSIUM 4.1 mmol/L (3.6-5.0); TOTAL PROTEIN 6.6 g/dL (5.8-8.3)
--- NOTE | 2017-05-11 10:02 | PN ---
DATE: 05/09/2017 SUBJECTIVE: The patient is seen and examined on the bedside on 05/09/2017. Sitting on the chair. Got physical therapy. Her lightheaded and dizziness got better after ENT procedure, happy for that. No nausea, vomiting or diarrhea. No hematuria or hematochezia. No fever or chills. PHYSICAL EXAMINATION VITAL SIGNS: Temperature 98.6, blood pressure 129/77 and respiratory rate 16. HEENT: Head is normocephalic and atraumatic. Eyes: PERRLA. Extraocular muscles intact. Conjunctivae clear. Nose patent. NECK: Supple. No carotid bruits. No JVD or thyromegaly. CHEST: Bilaterally symmetrical. HEART: S1 and S2 positive. LUNGS: Clear to auscultation. ABDOMEN: Soft. Bowel sounds present. No organomegaly. EXTREMITIES: No edema. No cyanosis. NEUROLOGIC: The patient is awake and alert. Moving all four extremities. No focal deficit. MEDICATIONS: Spironolactone, Antivert, Effexor, Klonopin, Lamictal, Lipitor, Norvasc, Ritalin, Wellbutrin and Zyprexa. LABORATORY DATA: White blood cell 5.4, hemoglobin 10.5 and platelets 303,000. Potassium 4.2, sodium 140, BUN 16, creatinine 1.6, glucose 101 and calcium 9.8. ASSESSMENT AND PLAN: Ms. Gabbi Trujillo is a 72-year-old lady status post episode of dizziness, lightheadedness treated with Antivert and especially the patient got procedure from ENT, history of chronic kidney disease stage III with no significant proteinuria. 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 Dr. Noe is on the case, history of osteoporosis, hyperlipidemia, mild valvular heart disease. Continue present physical therapy in TCU. Continue Antivert. According to Nephrology the patient needs low-dose of Aldactone. Gastrointestinal and deep venous thrombosis prophylaxis. Repeat labs. We will follow up. Irma Castanon MD
[2017-05-11] MEDS: Venlafaxine 75 mg ER Cap PO SCH (10:26)
--- NOTE | 2017-05-11 18:41 | PN ---
DATE: 05/11/2017 SUBJECTIVE: The patient is seen sitting in chair. She is awake. She is alert. She is comfortable. PHYSICAL EXAMINATION: GENERAL: Elderly lady sitting in chair. VITAL SIGNS: Blood pressure 128/72, heart rate 78, respiratory rate 14, and temperature 98.4. LUNGS: Bilateral equal entry, no rales. EXTREMITIES: No lower extremity edema. INTAKE AND OUTPUT: Not charted. LABORATORY DATA: WBC 5.9, hemoglobin 11, hematocrit 35, and platelets 309. Sodium 139, potassium 4.1, chloride 104, CO2 of 30, BUN 27, creatinine 1.8, glucose 101, calcium 9.6, phosphorus 3.9, and magnesium 2.0. CURRENT MEDICATIONS: Aldactone 25 b.i.d., Antivert, Effexor, Klonopin, Lamictal, Lipitor, amlodipine 10, Ritalin, Wellbutrin, and Zyprexa. ASSESSMENT: 1. Resolved hypokalemia. 2. Hypertension well controlled. 3. Schizophrenia. 4. 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 PLAN: 1. Continue current management. 2. Continue physical therapy. 3. Outpatient follow up with commissioning editor. Swati Angeles MD
[2017-05-12 07:05] LABS: BASO # 0.01 K/mm3 (0.0-2.0); BASO % 0.2 % (0.0-3.0); EOS # 0.1 (0.0-0.7); EOS % 2.3 % (1.5-5.0); GRAN # 3.29 (1.4-6.5); GRAN % 59.3 % (50.0-68.0); HEMATOCRIT 34.5 % (36.0-48.0); LYMPH # 1.7 (1.2-3.4); LYMPH % 29.9 % (22.0-35.0); MEAN CELL VOLUME 87.6 fl (80.0-105.0); MEAN CORPUSCULAR HEMOGLOBIN 27.2 pg (25.0-35.0); MEAN PLATELET VOLUME 9.2 fl (7.0-11.0); MONO # 0.5 (0.1-0.6); MONO % 8.3 % (1.0-6.0); RED CELL DISTRIBUTION WIDTH 16.9 % (11.5-14.5); WHITE BLOOD COUNT 5.6 10^3/ul (4.5-11.0)
[2017-05-12 07:39] LABS: ALB/GLOB RATIO 1.6 (1.1-1.8); BILIRUBIN,TOTAL 0.6 mg/dL (0.2-1.3); CALCIUM 9.6 mg/dL (8.4-10.5); POTASSIUM 4.3 mmol/L (3.6-5.0); TOTAL PROTEIN 6.1 g/dL (5.8-8.3)
[2017-05-12] MEDS: Venlafaxine 75 mg ER Cap PO SCH ×2 (07:55→10:04)
--- NOTE | 2017-05-12 08:26 | PN ---
DATE: 05/11/2017 SUBJECTIVE: The patient is a 72-year-old female. The patient is seen and examined at the bedside, looking comfortable. Awake, alert, and oriented x3. No cough. No shortness of breath. No dizziness. No chest pain. No palpitation. No headache. PHYSICAL EXAMINATION: VITAL SIGNS: Temperature 98, pulse 80, blood pressure 142/73, and respiratory rate 18. HEENT: Head is normocephalic and atraumatic. Eyes; PERRLA. Extraocular muscles are intact. Conjunctivae clear. Nose is patent. NECK: Supple. No carotid bruits. No JVD or thyromegaly. CHEST: Bilaterally symmetrical. ABDOMEN: Soft. Bowel sounds present. No organomegaly. EXTREMITIES: No edema. No cyanosis. NEUROLOGIC: The patient is awake and alert. Moving all four extremities. No focal deficits. MEDICATIONS: Aldactone, Antivert, Effexor, Klonopin, Lamictal, Lipitor, amlodipine, Ritalin, Wellbutrin, and Zyprexa. LABORATORY DATA: White blood cells 5.9, hemoglobin 11.2, hematocrit 35.4, and platelets 309. Sodium 139, potassium 4.1, BUN 27, and creatinine of 1.8. 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 PLAN: Continue present management, physical therapy. History of lightheadedness and dizziness, improved after ENT maneuver. Now the patient is using Antivert. Neurology saw the patient. History of osteoporosis. Continue physical therapy. Gastrointestinal and deep venous thrombosis prophylaxis. Repeat labs. We will follow up. Irma Castanon MD MTDDeangelo
--- NOTE | 2017-05-12 08:43 | PN ---
DATE: 05/11/2017 REFERRING PHYSICIAN: Dr. Castanon. SUBJECTIVE: The patient is sitting on the chair. Night was unremarkable. Did good walk today. No dizzy spell. No vertigo. No short of breath. No chest pain. No nausea. No vomiting. No diarrhea. No leg pain or leg swelling. OBJECTIVE: GENERAL: In no acute distress. VITAL SIGNS: Temperature is 98, heart rate is 80, respiratory rate is 18, blood pressure 142/73 and pulse ox 98% on room air. HEENT: Moist mucous membrane. Crowded airway. NECK: Supple. No JVD. LUNGS: Has fair airflow with few rhonchi. HEART: S1 and S2. ABDOMEN: Soft, nontender. No organomegaly. EXTREMITIES: No edema. NEUROLOGIC: Awake and alert. Follow simple commands. MEDICATIONS: She is on Aldactone 25 mg twice a day, Antivert 12.5 mg three times a day p.r.n., Effexor XR 25 mg daily, Klonopin 1.5 mg h.s. and 0.5 mg daily, Lamictal 150 mg twice a day, Lipitor 10 mg daily, Norvasc 10 mg daily, Reglan 5 mg twice a day, Wellbutrin 200 mg daily and Zyprexa 2.5 mg daily. LABORATORY DATA: Shows hemoglobin 11.2, hematocrit 35.4, platelets 309 and WBC 5.9. Sodium 139, potassium 4.1, chloride 104, bicarbonate 30, BUN 27, creatinine 1.8, glucose 101, calcium 9.6, phosphorus 3.9, magnesium 2.0, AST 18, ALT 30, alkaline phosphatase 70 and albumin is 3.8. IMPRESSION AND PLAN: Status post near syncope, pulmonary hypertension, may have sleep apnea syndrome, chronic obstructive lung disease, bipolar disorder, hyperlipidemia, hypertension, vestibular-type dizziness and vertigo. Pulmonary point of view doing okay. Keep head at 45 degrees. Continue therapy. Sleep apnea precaution. Outpatient sleep study. Thank you and we will follow with you. Joy Richter MD
[2017-05-12 17:34] VITALS: O2SAT 96
--- NOTE | 2017-05-12 17:46 | PN ---
DATE: SUBJECTIVE: The patient is a 72-year-old female, currently being treated on the Transitional Care Unit for gait dysfunction and debilitation. The patient has been under psychiatric care for bipolar disorder and mild cognitive impairment. Currently, her mental status reveals that she is awake, she is alert, slightly anxious, repetitive. Her recent and intermediate memory is mildly impaired. She is oriented x3. She is mildly depressed. No suicidal ideation. The patient recognizes me, able to carry on a coherent conversation. CURRENT MEDICATIONS: Includes clonazepam 0.5 mg at 2:00 p.m. and 1.5 mg at bedtime, Lamictal 150 mg b.i.d., Lipitor, Norvasc, Ritalin 5 mg in a.m. and 2:00 p.m., Wellbutrin SR 200 mg daily, and Zyprexa 2.5 mg at 2:00 p.m. The patient is receiving Aldactone 25 mg b.i.d., Antivert 12.5 mg t.i.d. p.r.n., and amlodipine 10 mg daily. LABORATORY DATA: Her laboratory data is within normal range except for BUN of 26, creatinine of 1.7, and estimated GFR of 29. Her CBC reveals white count of 5600, hemoglobin of , and platelet count of 311,000. I reviewed other cassandra consultant's notes and attending physician's notes. REVIEW OF SYSTEMS: Walking slowly, weakness is gradually improving. PHYSICAL EXAMINATION: VITAL SIGNS: Her blood pressure is 115/65, pulse is 80, and respirations are 18 per minute and afebrile. IMPRESSION: The patient has bipolar disorder, mixed type, in partial remission. She has chronic kidney disease secondary to lithium, tubular disease from many years ago. The patient has a history of possible problem. She has a history of hyperlipidemia, history of past hip replacement surgery, past hypokalemia, and history of noncompliance. PLAN: We will start Aricept 5 mg p.o. at bedtime. We will continue on above psychotropic medicines. She is having no adverse effects. We will follow up her as an outpatient. She is, from my point of view, psychiatrically cleared for discharge. Jayden Noe MD [facility] # [id number]
--- NOTE | 2017-05-12 19:40 | PN ---
DATE: SUBJECTIVE: The patient is currently seen in the TCU. She is sitting in a chair entirely comfortable. She states that she will likely be discharged home in the next 24 hours so she can be [facility]. She is not complaining of any lightheadedness or dizziness. The patient has decided that she would like to follow up with me in [place] instead of seeing her tin recovery worker up in [facility]. MEDICATIONS: Medication list reviewed. The patient is currently on Aldactone, Antivert, Aricept, Effexor, Klonopin, Lamictal, Lipitor, Norvasc, Ritalin, Wellbutrin and Zyprexa. OBJECTIVE VITAL SIGNS: Blood pressure 115/65, temperature 98, respiratory rate 18 with a pulse of 80. HEENT: Normocephalic and atraumatic. Conjunctivae are pink. Sclerae are nonicteric. NECK: Supple. No neck vein distention. CHEST: Clear to auscultation and percussion. No rales or rhonchi or wheezing. CARDIOVASCULAR: Shows a regular rate and rhythm with AI/MR/TR. No S3. No S4. No rub. ABDOMEN: Soft. Bowel sounds normal. No rebound or guarding. No masses. EXTREMITIES: Show no cyanosis or clubbing. She does have puffiness of her lower extremity with no pitting edema. LABORATORY DATA AND IMAGING: CBC today white blood cell count 5.6, hemoglobin is slightly lower at 10.7, platelet count is 311,000. Chemistry showed normal electrolytes. BUN is 26 with a creatinine of 1.7. This is entirely within her baseline range. Calcium is 9.6. Yesterday's phosphorus was 3.0 with a magnesium of 2.0. Liver enzymes are normal. Albumin is 3.7. ASSESSMENT: Status post episode of dizziness and lightheadedness perhaps thought to be secondary to inner ear dysfunction. The patient had a negative neurological workup during her stay in acute care. She remains on p.r.n. Antivert. She has been asymptomatic the last several days. Chronic kidney disease stage III. Creatinine is in her baseline range. The patient is found to have possible chronic tubulointerstitial nephritis secondary to previous use of lithium for treatment of bipolar disorder. A 24 hour urine done in the previous hospitalization showed a creatinine clearance of 31 mL per minute with 126 mg of protein in the urine. History of hypertension. Blood pressure is currently well controlled on calcium channel héctor and Aldactone. Status post mild hypokalemia. This has resolved. Potassium was 4.3. The patient did not require any additional potassium supplements. She can be maintained safely on Aldactone as long as labs were done. History of bipolar disorder. The patient is being followed by Dr. Noe. History of osteoporosis, stable. History of hyperlipidemia, stable. The patient will continue statin therapy and low cholesterol diet. History of mild valvular heart disease. PLAN: I have given the patient my name and phone number for followup. She is welcome to follow up with me or she could return to see a tin recovery worker at [facility]. It is safe for the patient to be discharged home on low-dose Aldactone. The patient will need to follow up with me to have outpatient labs done. From my standpoint, the patient is okay for discharge tomorrow. Linden Olson MD
--- NOTE | 2017-05-12 23:07 | CON ---
DATE: 05/07/2017 OTOLARYNGOLOGY CONSULT REFERRING PHYSICIAN: Dr. Irma Castanon. REASON FOR CONSULTATION: Dizziness. HISTORY OF PRESENT ILLNESS: This is a 72-year-old female with past medical history of bipolar disorder, hypertension, hyperlipidemia, who came to the hospital to the emergency room for 4 days of dizziness that is positional. The patient states these episodes of dizziness lasts approximately 1 minute and then resolved. The patient states she is sustained a fall because of one episode of dizziness, but did not hit her head or loose any consciousness. In the ED a CT scan was completed showing no acute intracranial abnormalities. The patient is not having issues with her hearing. Denies any tinnitus, any nausea or vomiting. She denies any otorrhea, ear pain. No rhinorrhea or recent upper respiratory infections. She states that the meclizine is only provided mild relief of her symptoms. She is not able to ambulate and is working well with physical therapy. The patient states she is anxious because of her dizziness, but otherwise she has no other complaints. PAST MEDICAL HISTORY: As per HPI. PAST SURGICAL HISTORY: No previous surgeries with head or neck. SOCIAL HISTORY: The patient is nonsmoker. No alcohol or illicit. FAMILY HISTORY: No pertinent family history. ALLERGIES: NO KNOWN DRUG ALLERGIES. CURRENT MEDICATIONS: As per [facility]. REVIEW OF SYSTEMS: A 12-point review of system is negative except as stated in the HPI. OBJECTIVE: VITAL SIGNS: Temperature 98, pulse 72, blood pressure 128/72, respiratory rate 18, saturation is 98% on room air. GENERAL: The patient is alert and oriented to person, place and time. Speech is fluent. She is not dysarthric. Comfortable sitting up in bed. HEAD: Normocephalic and atraumatic. EARS: Auricles are symmetric bilaterally. Tympanic membrane are visualized to be normal. There is no bulging or retraction. No effusions noted. EYES: Extraocular muscles are grossly intact. Pupils are equal, round and reactive to light. NOSE: Nares patent bilaterally. There is no discharge, no crusting. Septum was mildly deviated to the right. MOUTH: Mucous membranes are moist. Tongue is nonedematous. Floor of mouth is nonedematous. Uvula is midline. Tonsils are 2+. Posterior oropharynx is visualized. There is no postnasal drip. NECK: Supple, nontender. No palpable lymphadenopathy. Thayer is non-lateralizing. Rinne test; air conduction is greater than bone conduction bilaterally. Ramses-Hallpike is positive to the left. LABORATORY DATA: WBC 5.5, hemoglobin 10.8, platelets 322. Sodium 141, potassium 3.7, chloride 105, carbon dioxide 28, anion gap 12, BUN 13, creatinine 1.3. PROCEDURE: After receiving verbal consent from the patient. The patient was seated on the hospital bed and an Marianela maneuver was performed. The patient tolerated the procedure without any complaints or complications. ASSESSMENT: This is a 72-year-old female with most likely benign positional vertigo. No acute abnormality on head imaging who is admitted for dizziness now undergoing rehab. PLAN: 1. Marianela maneuver performed the patient advised to keep head of bed elevated for 48 hours. 2. Please provide the patient with home exercises for vertigo. 3. The patient may benefit from outpatient vestibular rehab if symptoms persist. 4. The patient is to follow up in our office for audiogram as well as further vestibular testing if needed. 5. May use meclizine as needed. 6. The patient is clear for discharge from an ENT prospective. Thank you for allowing us to participate in the patient's care. Shakir Mercer DO
--- NOTE | 2017-05-13 00:20 | CP.PCM.PN ---
Subjective - Date & Time of Evaluation Date of Evaluation: 05/12/17 Time of Evaluation: 10:00 - Subjective Subjective: 72yr female with h/o hypokalemia, HTN, Chronic tubular interstitial disease, CKD stage 3, hyperlipidemia, Osteoarthritis, b/l hip replacement, Bipolar disease. She is sitting in chair in physical therapy w/o any distress noted. She reports relief of dizziness after use of antivert and manueuvers that were done. She is very emotional, crying and wishing to go home for the holidays. D/C planning for tomorrow. She denies any fever, chills, nausea, vomiting, abdominal pain, urinary symptoms, or any other complaints. Objective - Vital Signs/Intake and Output Vital Signs (last 24 hours): Temp Pulse Resp BP Pulse Ox 98.7 F 75 15 122/74 96 05/12/17 16:00 05/12/17 16:00 05/12/17 16:00 05/12/17 16:00 05/12/17 16:00 - Medications Medications: Current Medications Amlodipine Besylate (Norvasc) 10 mg PO DAILY NIKI PRN Reason: Protocol Last Admin: 05/12/17 10:05 Dose: 10 mg Atorvastatin Calcium (Lipitor) 10 mg PO DIN NIKI PRN Reason: Protocol Last Admin: 05/12/17 17:24 Dose: 10 mg Bupropion HCl (Wellbutrin) 200 mg PO DAILY NIKI Last Admin: 05/12/17 10:06 Dose: 200 mg Clonazepam (Klonopin) 0.5 mg PO 1400 NIKI PRN Reason: Protocol Last Admin: 05/12/17 13:53 Dose: 0.5 mg Clonazepam (Klonopin) 1.5 mg PO HS NIKI PRN Reason: Protocol Last Admin: 05/12/17 22:32 Dose: 1.5 mg Donepezil HCl (Aricept) 5 mg PO HS NIKI Last Admin: 05/12/17 22:32 Dose: 5 mg Lamotrigine (Lamictal) 150 mg PO BID NIKI PRN Reason: Protocol Last Admin: 05/12/17 17:23 Dose: 150 mg Meclizine HCl (Antivert) 12.5 mg PO TID PRN; Protocol PRN Reason: Dizziness Last Admin: 05/10/17 13:53 Dose: 12.5 mg Methylphenidate HCl (Ritalin) 5 mg PO 0800,1400 NIKI PRN Reason: Protocol Last Admin: 05/12/17 13:53 Dose: 5 mg Olanzapine (Zyprexa) 2.5 mg PO 1400 NIKI PRN Reason: Protocol Last Admin: 05/12/17 13:51 Dose: 2.5 mg Spironolactone (Aldactone) 25 mg PO BID NIKI PRN Reason: Protocol Last Admin: 05/12/17 17:22 Dose: 25 mg Venlafaxine HCl (Effexor Xr) 75 mg PO 0800 NIKI PRN Reason: Protocol - Labs Labs: 05/12/17 06:50 05/12/17 06:50 - Constitutional Appears: Well - Head Exam Head Exam: ATRAUMATIC, NORMOCEPHALIC - Eye Exam Eye Exam: Normal appearance - ENT Exam ENT Exam: Mucous Membranes Moist - Neck Exam Neck Exam: Full ROM, Normal Inspection - Respiratory Exam Respiratory Exam: Clear to Ausculation Bilateral, NORMAL BREATHING PATTERN - Cardiovascular Exam Cardiovascular Exam: REGULAR RHYTHM, +S1, +S2 - GI/Abdominal Exam GI & Abdominal Exam: Normal Bowel Sounds - Rectal Exam Rectal Exam: NORMAL INSPECTION - Exam Exam: NORMAL INSPECTION - Extremities Exam Extremities Exam: Full ROM, Normal Inspection - Back Exam Back Exam: NORMAL INSPECTION - Neurological Exam Neurological Exam: Alert, Awake, Oriented x3 - Psychiatric Exam Psychiatric exam: Normal Mood - Skin Skin Exam: Dry, Intact, Normal Color, Warm Assessment and Plan (1) Hypokalemia Status: Resolved (2) Dizziness Status: Chronic (3) BPPV (benign paroxysmal positional vertigo) Status: Chronic (4) Bipolar disorder Status: Chronic (5) Anxiety Status: Chronic (6) Chronic kidney disease (CKD) Status: Chronic - Assessment and Plan (Free Text) Plan: D/C home tomorrow in order to fully benefit from physical therapy. ENT - Dr. Mercer - Marianela maneuvers preformed. out vestibular rehab treatment & audiogram. cleared for d/c home. Renal - Dr. Olson - Cleared for d/c home. Psych - Dr. Weeks - cleared for d/c home.
--- NOTE | 2017-05-13 03:46 | PN ---
PULMONARY PROGRESS NOTE DATE: 05/12/2017 REFERRING PHYSICIAN: Irma Castanon MD SUBJECTIVE: She is sitting in the chair. Night was unremarkable. No headache. No rhinitis. No nausea. No vomiting or diarrhea. Has some trace leg swelling. OBJECTIVE: GENERAL: In no acute distress. VITAL SIGNS: Temperature is 98, heart rate is 75, respiratory rate is 16, blood pressure is 122/74, and pulse ox is 96% on room air. HEENT: Moist mucous membranes. Crowded airway. Mallampati score is 4. NECK: Supple. No JVD. LUNGS: Has a fair airflow with few rhonchi. HEART: S1 and S2. ABDOMEN: Soft and nontender. No organomegaly. EXTREMITIES: There is trace edema. NEUROLOGIC: Awake and alert. Follow simple commands. MEDICATIONS: She is on Aldactone 25 mg twice a day, Antivert 12.5 mg three times a day p.r.n., Aricept 5 mg at bedtime, Effexor XR 75 mg daily, Klonopin 1.5 mg at bedtime and 0.5 mg daily, Lamictal 150 mg twice a day, Lipitor 10 mg daily, Norvasc 10 mg daily, Ritalin 5 mg twice a day, Wellbutrin 200 mg daily, and Zyprexa 2.5 mg daily. LABORATORY DATA: Shows hemoglobin 10.7, hematocrit 34.5, WBC 5.6, and platelets 311. Sodium 140, potassium 4.3, chloride 103, bicarbonate 30, BUN 26, creatinine 1.7, glucose 97, calcium 9.6, AST 14, ALT 33, alkaline phosphatase is 74, and albumin is 3.7. IMPRESSION AND PLAN: Status post near syncope, pulmonary hypertension, may have sleep apnea syndrome, chronic obstructive lung disease, bipolar disorder, hyperlipidemia, hypertension, and vestibular type dizziness, which is improved and presently doing well. Upon discharge, outpatient, consider sleep study, fall precaution, decreased sodium diet, decreased p.o. fluid intake, and elevate lower extremity. Thank you and we will follow with you. Joy Richter MD
[2017-05-13 06:12] LABS: BASO # 0.01 K/mm3 (0.0-2.0); BASO % 0.2 % (0.0-3.0); EOS # 0.1 (0.0-0.7); GRAN # 3.11 (1.4-6.5); GRAN % 55.9 % (50.0-68.0); LYMPH # 1.9 (1.2-3.4); LYMPH % 33.6 % (22.0-35.0); MEAN CELL VOLUME 87.6 fl (80.0-105.0); MEAN CORPUSCULAR HEMOGLOBIN 28.1 pg (25.0-35.0); MEAN CORPUSCULAR HGB CONC 32.1 g/dl (31.0-37.0); MONO # 0.5 (0.1-0.6); MONO % 8.3 % (1.0-6.0); RED CELL DISTRIBUTION WIDTH 17.1 % (11.5-14.5); WHITE BLOOD COUNT 5.6 10^3/ul (4.5-11.0)
[2017-05-13] MEDS ORDERED: Venlafaxine 75 mg ER Cap PO SCH (08:00)
[2017-05-13 10:28] VITALS: BP 127/71; PULSE 80; RESP 18; TEMP 98.1
--- NOTE | 2017-05-13 16:15 | PN ---
PULMONARY PROGRESS NOTE DATE: 05/13/2017 REFERRING PHYSICIAN: Dr. Castanon. SUBJECTIVE: She is sitting up in a chair. Night was unremarkable. Being discharged home. No headache. No rhinitis. No dizzy spell. No vertigo. Daytime sleepy and tired. No leg pain or leg swelling. OBJECTIVE: GENERAL: In no acute distress. VITAL SIGNS: Temperature is 98, heart rate is 80, respiratory rate is 18, blood pressure 127/71 and pulse ox 96% on room air. HEENT: Moist mucous membranes. Crowded airway. NECK: Supple. No JVD. LUNGS: Have a fair airflow with few rhonchi. HEART: S1 and S2. ABDOMEN: Soft and nontender. No organomegaly. EXTREMITIES: Does have edema. NEUROLOGIC: Awake and alert. Follows simple commands. MEDICATIONS: She is on Aldactone 25 mg twice a day, Antivert 12.5 mg 3 times a day p.r.n., Aricept 5 mg h.s., Effexor XR 75 mg daily, Klonopin 1.5 mg h.s. and 0.5 mg daily, Lamictal 150 mg twice a day, Lipitor 10 mg daily, Norvasc 10 mg daily, Ritalin 5 mg twice a day, Wellbutrin 200 mg daily and Zyprexa 2.5 mg daily. LABORATORY DATA: Shows hemoglobin 10.9, hematocrit 34.0, WBC 5.6, and platelet count is 293. Sodium 140, potassium 4.3, chloride 103, bicarbonate 30, BUN 26, creatinine 1.7, glucose 97, calcium 9.6, AST 14, ALT 33 and alkaline phosphatase is 74. IMPRESSION AND PLAN: Status post near syncope, pulmonary hypertension, may have sleep apnea syndrome, chronic obstructive lung disease, bipolar disorder, hyperlipidemia, hypertension. Dizziness has gone. Pulmonary point of view, doing okay. Okay to discharge. Will lead attended sleep study upon discharge as an outpatient. I had a long discussion with the patient. She expressed understanding. Thank you and we will follow with you. Joy Richter MD
--- NOTE | 2017-05-13 23:18 | PN ---
DATE: 05/13/2017 SUBJECTIVE: The patient is seen sitting in chair. She is awake. She is alert. She is comfortable. PHYSICAL EXAMINATION: GENERAL: Elderly lady sitting in chair. VITAL SIGNS: Blood pressure 127/71, heart rate 80, respiratory rate 18, temperature 98.1. LUNGS: Bilateral equal air entry. No rales. EXTREMITIES: No lower extremity edema. LABORATORY DATA: WBC 5.6, hemoglobin 10.9, hematocrit 34, platelets 293. No chemistry today. MEDICATIONS: Aldactone 25 b.i.d., Antivert, Effexor, Klonopin, Lamictal, Lipitor, amlodipine 10, Ritalin, Wellbutrin, Zyprexa. ASSESSMENT AND PLAN: 1. Resolved hypokalemia. 2. Stable chronic kidney disease stage 3. 3. 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 4. Bipolar disorder. 5. Hypertension, well controlled. PLAN: 1. Continue Aldactone 25 b.i.d. 2. Continue psych meds. 3. Continue physical therapy. 4. 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 Swati Angeles MD
== END 2017-05-13 16:09 | disposition home health service (06) | DRG 641 ==
LOC: TRCU 13:35
PROVIDERS: ADMIT Internal Medicine; ATTEND Internal Medicine
PROC: F07Z9FZ Gait Training/Functional Ambulation Treatment using Assistive, Adaptive, Supportive or Protective Equipment (ICD-10-PCS; principal; 2017-05-08)
PROC: F07Z8FZ Transfer Training Treatment using Assistive, Adaptive, Supportive or Protective Equipment (ICD-10-PCS; 2017-05-08)
PROC: F07L6ZZ Therapeutic Exercise Treatment of Musculoskeletal System - Lower Back / Lower Extremity (ICD-10-PCS; 2017-05-08)
PROC: F08Z2FZ Grooming/Personal Hygiene Treatment using Assistive, Adaptive, Supportive or Protective Equipment (ICD-10-PCS; 2017-05-08)
DX: E87.6 Hypokalemia (principal); N11.9 Chronic tubulo-interstitial nephritis, unspecified; T43.595S Adverse effect of other antipsychotics and neuroleptics, sequela; E86.0 Dehydration; H81.10 Benign paroxysmal vertigo, unspecified ear; I12.9 Hypertensive chronic kidney disease with stage 1 through stage 4 chronic kidney disease, or unspecified chronic kidney disease; N18.3 Chronic kidney disease, stage 3 (moderate); I27.20 Pulmonary hypertension, unspecified; J44.9 Chronic obstructive pulmonary disease, unspecified; M19.90 Unspecified osteoarthritis, unspecified site; E78.00 Pure hypercholesterolemia, unspecified; F31.77 Bipolar disorder, in partial remission, most recent episode mixed; F41.9 Anxiety disorder, unspecified; Z96.643 Presence of artificial hip joint, bilateral; R55 Syncope and collapse; M81.0 Age-related osteoporosis without current pathological fracture; G47.30 Sleep apnea, unspecified; Z91.19 Patient's noncompliance with other medical treatment and regimen; Z87.891 Personal history of nicotine dependence